=== PATIENT | male | born 1960 | race Caucasian/White ===

== ENCOUNTER 2016-06-13 09:56 | Inpatient (IN) | payer MEDICARE, OTHER ==
[~2016-06-13 09:56] MED LIST: AMLO10 PO; CLIN150 PO; DEPA500T PO; ENAL20TA PO; FIBE625T PO; LACT10SO PO; LEXA20TA PO; LIPI20TA PO; LITH300C2 PO; MELA3TAB PO; METF1000 PO; MOTR200T4 PO; NOVO7030P2 SQ; NOVOLOGSS SQ; OMEG100037 PO; OMEP20TA PO
[2016-06-13 10:00] VITALS: BP 106/66; PULSE 75; RESP 18; TEMP 98.5; O2SAT 96
[2016-06-13] MEDS ORDERED: LORazepam 2 MG/ML VIAL IM PRN ×2 (10:30→11:00)
[2016-06-13] MEDS ORDERED: ALUMINUM/MAGNESIUM/SIMETH 30 ML CUP PO PRN ×2 (10:30→11:00)
[2016-06-13] MEDS ORDERED: diphenhydrAMINE HCL 50 MG/ML VIAL - HS PRN IM (10:30)
[2016-06-13] MEDS ORDERED: MAGNESIUM HYDROXIDE SUSP 30 ML CUP PO PRN ×2 (10:30→11:00)
[2016-06-13] MEDS ORDERED: CALCIUM POLYCARBOPHIL 625 MG TAB PO PRN (11:00)
[2016-06-13] MEDS: LITHIUM CARBONATE 300 MG CAP PO SCH (11:00)
[2016-06-13] MEDS ORDERED: LORazepam 1 MG TAB PO PRN (11:00)
[2016-06-13] MEDS ORDERED: ACETAMINOPHEN 325 MG TAB PO PRN (11:00)
[2016-06-13] MEDS: ENALAPRIL MALEATE 10 MG TAB PO SCH (11:00)
[2016-06-13] MEDS ORDERED: hydrOXYzine HCL 50 MG TAB PO PRN (11:00)
[2016-06-13] MEDS: metFORMIN HCL 500 MG TAB PO SCH ×2 (11:00→21:00)
[2016-06-13] MEDS ORDERED: diphenhydrAMINE HCL 50 MG CAP PO PRN (11:00)
[2016-06-13] MEDS: ESCITALOPRAM OXALATE 20 MG TAB PO SCH (11:00)
[2016-06-13] MEDS ORDERED: IBUPROFEN 200 MG TAB PO PRN (11:00)
[2016-06-13] MEDS: CLINDAMYCIN 150 MG CAP PO SCH ×2 (12:00→17:58)
[2016-06-13] MEDS ORDERED: DEXTROSE 50% IN WATER 50 ML VIAL(D50) IV PUSH PRN (13:45)
[2016-06-13] MEDS ORDERED: GLUCAGON 1 MG/ML VIAL OTHER PRN (13:45)
[2016-06-13] MEDS ORDERED: cloNIDine HCL 0.1 MG TAB PO PRN (13:45)
--- NOTE | 2016-06-13 13:53 | PD.CONS ---
[facility] By [facility]ry team Reason for Consult Medical management Primary Care Physician Unknown Diagnoses: History of Present Illness Patient is a 55-year-old male with primary medical history of anxiety, depression, bipolar disorder, schizoaffective disorder, HTN and DM was recently discharged yesterday 06/13/16 to a longterm/[facility] long-term living facility . He got aggressive with the staff, he was [place] acted and sent to the ED. In the ED, states that he wants to go to [place] to see his and kids. Apparently patient has not been nor has kids. He is now admitted to inpatient psychiatric unit for further evaluation. Consulted for medical management. Patient seen. Sedated. Arousable to tactile stimuli but falls back to sleep. Patient was given ativan, haldol, benadryl in the ED due to agitation. Appears comfortable. Patient has multiple readmissions from agitation and aggressive behavior, 05/21- 05/25, 05/29-06/12. Review of Systems ROS Limitations: Altered Mental Status, Hearing Impaired Past Family Social History Allergies: Coded Allergies: Penicillin (Verified Allergy, Severe, unknown, 06/12/16) [place] (Verified Allergy, Severe, unk, 06/12/16) Past Medical History Anxiety Depression Bipolar disorder Schizoaffective disorder HTN DM Past Surgical History None Reported Medications Lipitor (Atorvastatin Calcium) 20 Mg Tab 20 Mg PO HS 15 Days [place] Carbonate 300 Mg Cap 300 Mg PO DAILY 15 Days Lexapro (Escitalopram Oxalate) 20 Mg Tab 20 Mg PO DAILY Depakote DR (Divalproex Sodium) 500 Mg Tabdr 1,500 Mg PO HS 15 Days Norvasc (Amlodipine Besylate) 10 Mg Tab 10 Mg PO DAILY Motrin Ib (Ibuprofen) 200 Mg Tab 600 Mg PO Q8HR PRN 5 Days Metformin (Metformin HCl) 1,000 Mg Tab 1,000 Mg PO BID With meals Melatonin 3 Mg Tab 6 Mg PO HS 30 Days Lactulose Liq (Lactulose) 10 Gm/15 Ml Soln 15 Ml PO BID 30 Days Fish Oil 1000 mg ([place]-3 Fatty Acids) 1 Cap Cap 2,000 Mg PO DAILY 30 Days Fibercon (Calcium Polycarbophil) 625 Mg Tab 625 Mg PO DAILY PRN 30 Days Enalapril (Enalapril Maleate) 20 Mg Tab 20 Mg PO DAILY 30 Days Novolog Inj (Insulin Aspart) 100 Unit/Ml Inj 1 Injection SQ DIRECTED 30 Days Three times daily SQ sliding scale before meals. no need to HS dosing. Novolin 70-30 Inj (Insulin Human Isoph/Insulin Regular) 1,000 Unit/10 Ml Vial 13 Units SQ DAILY@17 30 Days Novolin 70-30 Inj (Insulin Human Isoph/Insulin Regular) 1,000 Unit/10 Ml Vial 14 Units SQ DAILY@08 30 Days Omeprazole 20 Mg Tab 20 Mg PO DAILY Cleocin (Clindamycin HCl) 150 Mg Cap 300 Mg PO Q6H 10 Days Active Ordered Medications Current Medications Medications (Trade) Dose Ordered Sig/[place] Route Start Time Stop Time Status Last Admin (Ativan) 1 mg Q6H PRN PO 06/13/16 10:30 (Ativan Inj) 1 mg Q6H PRN IM 06/13/16 10:30 (Atarax) 50 mg Q6H PRN PO 06/13/16 10:30 (Benadryl) 50 mg HS PRN PO 06/13/16 10:30 (Benadryl Inj) 50 mg HS PRN IM 06/13/16 10:30 (Tylenol) 650 mg Q4H PRN PO 06/13/16 10:30 (Milk Of Magnesia Liq) 30 ml DAILY PRN PO 06/13/16 10:30 (Mag-Al Plus Susp Liq) 30 ml Q6H PRN PO 06/13/16 10:30 (Ativan) 1 mg Q6H PRN PO 06/13/16 11:00 (Ativan Inj) 1 mg Q6H PRN IM 06/13/16 11:00 (Benadryl) 50 mg HS PRN PO 06/13/16 11:00 (Tylenol) 650 mg Q4H PRN PO 06/13/16 11:00 (Milk Of Magnesia Liq) 30 ml DAILY PRN PO 06/13/16 11:00 (Mag-Al Plus Susp Liq) 30 ml Q6H PRN PO 06/13/16 11:00 (Atarax) 50 mg Q6H PRN PO 06/13/16 11:00 (Norvasc) 10 mg DAILY PO 06/13/16 11:00 (Lipitor) 20 mg HS PO 06/13/16 21:00 (Fiber Con) 625 mg DAILY PRN PO 06/13/16 11:00 (Cleocin) 300 mg Q6HR PO 06/13/16 12:00 (Depakote Dr) 1,500 mg HS PO 06/13/16 21:00 (Vasotec) 20 mg DAILY PO 06/13/16 11:00 (Lexapro) 20 mg DAILY PO 06/13/16 11:00 (NovoLIN 70/30 INJ) 13 units DAILY@17 SQ 06/13/16 17:00 (NovoLIN 70/30 INJ) 14 units DAILY@08 SQ 06/14/16 08:00 (Lactulose Liq) 15 ml BID PO 06/13/16 21:00 ([place] Carbonate) 300 mg DAILY PO 06/13/16 11:00 (Glucophage) 1,000 mg BID PO 06/13/16 11:00 (Protonix) 20 mg DAILY PO 06/14/16 09:00 (Melatonin) 5 mg HS PO 06/13/16 21:00 (Motrin) 600 mg Q8HR PRN PO 06/13/16 12:41 Family History No h/o DM or CAD Social History Negative for alcohol, tobacco or drugs. Physical Exam Vital Signs Vital Signs Date Time Temp Pulse Resp B/P Pulse Ox O2 Delivery O2 Flow Rate FiO2 06/13/16 10:00 98.5 75 18 106/66 96 Physical Exam GENERAL: This is a well-nourished, well-developed patient, sedated. SKIN: No rashes, ecchymoses or lesions. Cool and dry. HEAD: Atraumatic. Normocephalic. EYES: Pupils equal round and reactive. ENT: Nose without bleeding. Uvula midline. Airway patent. NECK: Trachea midline. No JVD or lymphadenopathy. CARDIOVASCULAR: Regular rate and rhythm without murmurs, gallops, or rubs. RESPIRATORY: Clear to auscultation. Breath sounds equal bilaterally. No wheezes , rales, or rhonchi. GASTROINTESTINAL: Abdomen soft, non-tender, nondistended. Bowel sounds active 4. MUSCULOSKELETAL: Extremities without clubbing, cyanosis, or edema. No joint tenderness, effusion, or edema noted. No calf tenderness. Negative Homans sign bilaterally. NEUROLOGICAL: Sedated, lethargic. Patient is hearing impaired. Moves all extremities. Assessment and Plan Problem List: (1) Schizoaffective disorder, bipolar type ICD Code: F25.0 Status: Acute (2) DM (diabetes mellitus) ICD Code: E11.9 Status: Chronic (3) HTN (hypertension) ICD Code: I10 Status: Chronic (4) Aggressive behavior ICD Code: R45.89 Status: Acute (5) Schizoaffective disorder ICD Code: F25.9 Status: Acute Assessment and Plan Patient is 55-year-old male with a PMH of Anxiety, Depression, Bipolar Disorder , Schizoaffective Disorder, HTN and DM who was sent to Hospital from [facility] under [place] for aggressive behavior towards staff. Now admitted to inpatient psychiatry unit. Consulted for medical management. Schizoaffective Disorder/ Anxiety/ depression/ Bipolar Disorder/ aggressive behavior - managed by psychiatry team HTN - Continue home meds Enalapril and Norvasc. PRN clonidine - Monitor BP trend DM2 - Continue NovoLog Mix 70/30 14units am and 13units pm. Continue home metformin 1000 mg twice daily. - Continue diabetic diet. Sliding scale w/ Accu-Cheks. Dental pain - previous jaw x-ray with no acute findings. On clindamycin, to be completed 06/22/16. - Soft diet - Follow up with dentist as an outpatient. HLD - continue Lipitor. DVT prop ambulation Written by Aura Samayoa, acting as scribe for Dr. Brand on 06/13/16 at 14: 36. The documentation accurately reflects the work performed [id number] by me on 06/14/16 at 1436 Code Status Full code Discussed Condition With RN, and Aura Manrique Jun 13, 2016 13:53 Danny Brand MD Jun 14, 2016 08:30
[2016-06-13] MEDS: INSULIN ASPART SUPPLEMENTAL SCALE SQ SCH ×2 (16:00→21:00)
[2016-06-13] MEDS: INSULIN HUMAN NPH/R 70/30 1,000 UNITS/10 ML VIAL SQ SCH (18:14)
[2016-06-13 19:27] VITALS: BP 130/68; PULSE 69; RESP 20; TEMP 98.3; O2SAT 97
[2016-06-13] MEDS: LACTULOSE SYRUP 20 GM/30 ML CUP PO SCH (21:00)
[2016-06-13] MEDS: MELATONIN 5 MG TAB PO SCH (21:00)
[2016-06-13] MEDS: DIVALPROEX DR 500 MG TABEC PO SCH (21:00)
[2016-06-13] MEDS ORDERED: ATORVASTATIN 20 MG TAB PO SCH (21:00)
[2016-06-14] MEDS: CLINDAMYCIN 150 MG CAP PO SCH ×5 (05:49→23:50)
[2016-06-14] MEDS: INSULIN ASPART SUPPLEMENTAL SCALE SQ SCH ×4 (06:02→20:38)
[2016-06-14 06:46] LABS: AUTOMATED NEUTROPHIL # 6.2 TH/MM3 (1.8-7.7); BASOPHIL # 0.1 TH/MM3 (0-0.2); BASOPHIL % 0.9 % (0.0-2.0); EOSINOPHIL # 0.4 TH/MM3 (0-0.4); EOSINOPHIL % 4.3 % (0.0-4.0); HEMATOCRIT 36.2 % (39.0-51.0); HEMO FLAGS DIFF FINAL; LYMPH % 21.4 % (9.0-44.0); LYMPHOCYTE # 2.1 TH/MM3 (1.0-4.8); MEAN CELL VOLUME 82.1 FL (80.0-100.0); MEAN CORPUSCULAR HGB CONC 32.8 % (32.0-36.0); MONO % 11.1 % (0.0-8.0); NEUT % 62.3 % (16.0-70.0); PLATELET COUNT 194 TH/MM3 (150-450); RED CELL DISTRIBUTION WIDTH 14.2 % (11.6-17.2); WHITE BLOOD COUNT 9.9 TH/MM3 (4.0-11.0)
[2016-06-14 07:28] LABS: ANION GAP 10 MEQ/L (5-15); BICARBONATE 27.2 MEQ/L (21.0-32.0); BLOOD UREA NITROGEN 15 MG/DL (7-18); CHLORIDE 100 MEQ/L (98-107); CREATINE KINASE 1333 U/L (39-308); GLOMERULAR FILTRATION RATE 66 ML/MIN (>89); HDL CHOLESTEROL 36.9 MG/DL (40.0-60.0); LDL CHOLESTEROL 62 MG/DL (0-99); MAGNESIUM 2.1 MG/DL (1.5-2.5); POTASSIUM 3.8 MEQ/L (3.5-5.1); SODIUM (NA) 137 MEQ/L (136-145)
[2016-06-14 08:25] LABS: CKMB 5.5 NG/ML (0.5-3.6)
[2016-06-14] MEDS ORDERED: OMEGA PO SCH (09:00)
[2016-06-14] MEDS: metFORMIN HCL 500 MG TAB PO SCH ×2 (09:00→20:38)
[2016-06-14] MEDS ORDERED: FATTY ACIDS PO SCH (09:00)
[2016-06-14 09:02] LABS: HEMOGLOBIN A1a 1.1 %; HEMOGLOBIN A1b 2.5 %; HEMOGLOBIN Ao 80.6 %; HEMOGLOBIN LA1C 2.3 %; HEMOGLOBIN P3 4.2 %
[2016-06-14] MEDS: LITHIUM CARBONATE 300 MG CAP PO SCH (10:10)
[2016-06-14] MEDS: INSULIN HUMAN NPH/R 70/30 1,000 UNITS/10 ML VIAL SQ SCH ×2 (10:10→17:00)
[2016-06-14] MEDS: ESCITALOPRAM OXALATE 20 MG TAB PO SCH (10:10)
[2016-06-14] MEDS: LACTULOSE SYRUP 20 GM/30 ML CUP PO SCH ×2 (10:11→21:00)
[2016-06-14] MEDS: PANTOPRAZOLE SOD 20 MG DELAYED RELEASE TAB PO SCH (10:11)
[2016-06-14] MEDS: ENALAPRIL MALEATE 10 MG TAB PO SCH (10:11)
--- NOTE | 2016-06-14 13:54 | HHI.PR ---
Subjective Remarks Follow-up diabetes mellitus. Patient doesn't communicated with notes. He has no complaints denies pain. He has elevated CK patient received several intramuscular medications yesterday. Discussed with RN Objective Vitals Vital Signs Date Time Temp Pulse Resp B/P Pulse Ox O2 Delivery O2 Flow Rate FiO2 06/13/16 19:27 98.3 69 20 130/68 97 Result Diagram: 06/14/1660506/14/16605 Objective Remarks GENERAL: This is a well-nourished, well-developed patient SKIN: No rashes, ecchymoses or lesions. Cool and dry. HEAD: Atraumatic. Normocephalic. EYES: Pupils equal round and reactive. ENT: Nose without bleeding. Uvula midline. Airway patent. NECK: Trachea midline. No JVD or lymphadenopathy. CARDIOVASCULAR: Regular rate and rhythm without murmurs, gallops, or rubs. RESPIRATORY: Clear to auscultation. Breath sounds equal bilaterally. No wheezes , rales, or rhonchi. GASTROINTESTINAL: Abdomen soft, non-tender, nondistended. Bowel sounds active 4. MUSCULOSKELETAL: Extremities without clubbing, cyanosis, or edema. No joint tenderness, effusion, or edema noted. No calf tenderness. Negative Homans sign bilaterally. NEUROLOGICAL: Awake and alert. Patient is hearing impaired. Moves all extremities. Procedures Non- A/P Problem List: (1) Schizoaffective disorder, bipolar type ICD Code: F25.0 Status: Acute (2) DM (diabetes mellitus) ICD Code: E11.9 Status: Chronic (3) HTN (hypertension) ICD Code: I10 Status: Chronic (4) Aggressive behavior ICD Code: R45.89 Status: Acute (5) Schizoaffective disorder ICD Code: F25.9 Status: Acute Assessment and Plan Patient is 55-year-old male with a PMH of Anxiety, Depression, Bipolar Disorder , Schizoaffective Disorder, HTN and DM who was [facility] to [facility] under [place] Act for aggressive behavior towards staff. Now admitted to inpatient psychiatry unit. Consulted for medical management. Schizoaffective Disorder/ Anxiety/ depression/ Bipolar Disorder/ aggressive behavior - managed by psychiatry team HTN - Continue home meds Enalapril and Norvasc. PRN clonidine - Monitor BP trend DM2 - Continue NovoLog Mix 70/30 14units am and 13units pm. Continue home metformin 1000 mg twice daily. - Continue diabetic diet. Sliding scale w/ Accu-Cheks. Dental pain - previous jaw x-ray with no acute findings. On clindamycin, to be completed 06/22/16. - Soft diet - Follow up with dentist as an outpatient. Rhabdomyolysis. Patient was agitated yesterday and received several IM medications. No urinary complaints. Encourage oral hydration and avoid intramuscular medications. Repeat BMP and CK number morning. Hold Lipitor for now. HLD -was on Lipitor. DVT prop patient ambulatory Danny Brand MD Jun 14, 2016 13:54
--- NOTE | 2016-06-14 17:04 | HHI.PYPN ---
Subjective Remarks This is a second opinion for Dr. Núñez. Patient was seen and records reviewed but interview is limited via writing since no interpreters available. Patient is deaf. Patient has been behaving well in the hospital. Has not been agitated. Compliant with medications. He denies suicidal ideations thought or plan. He denies any hallucinations. Objective Alert: Yes [place]: Person, Place Mood: Calm Affect: Blunted Memory Intact: Comment (not tested) Hallucinations: Other (denies) Delusions: No Delusion Type: Other (denies) Suicidal: Ideation (denies) Homicidal: Ideation (denies) Insight/Judgement Poor Labs Test 06/14/16 06:06 White Blood Count 9.9 TH/MM3 Red Blood Count 4.40 MIL/MM3 Hemoglobin 11.9 GM/DL Hematocrit 36.2 % Mean Corpuscular Volume 82.1 FL Mean Corpuscular Hemoglobin 27.0 PG Mean Corpuscular Hemoglobin 32.8 % Concent Red Cell Distribution Width 14.2 % Platelet Count 194 TH/MM3 Mean Platelet Volume 8.3 FL Neutrophils (%) (Auto) 62.3 % Lymphocytes (%) (Auto) 21.4 % Monocytes (%) (Auto) 11.1 % Eosinophils (%) (Auto) 4.3 % Basophils (%) (Auto) 0.9 % Neutrophils # (Auto) 6.2 TH/MM3 Lymphocytes # (Auto) 2.1 TH/MM3 Monocytes # (Auto) 1.1 TH/MM3 Eosinophils # (Auto) 0.4 TH/MM3 Basophils # (Auto) 0.1 TH/MM3 CBC Comment DIFF FINAL Differential Comment Sodium Level 137 MEQ/L Potassium Level 3.8 MEQ/L Chloride Level 100 MEQ/L Carbon Dioxide Level 27.2 MEQ/L Anion Gap 10 MEQ/L Blood Urea Nitrogen 15 MG/DL Creatinine 1.15 MG/DL Estimat Glomerular Filtration 66 ML/MIN Rate Random Glucose 134 MG/DL Hemoglobin A1c 8.8 % Calcium Level 9.1 MG/DL Magnesium Level 2.1 MG/DL Total Creatine Kinase 1333 U/L Creatine Kinase MB 5.5 NG/ML Creatine Kinase MB % 0.4 % Triglycerides Level 130 MG/DL Cholesterol Level 125 MG/DL LDL Cholesterol 62 MG/DL HDL Cholesterol 36.9 MG/DL Cholesterol/HDL Ratio 3.38 RATIO Valproic Acid (Depakene) Level 11 MCG/ML [place] Level 0.2 MEQ/L Vitals/IOs Vital Signs Date Time Temp Pulse Resp B/P Pulse Ox O2 Delivery O2 Flow Rate FiO2 06/13/16 19:27 98.3 69 20 130/68 97 Assessment & Plan Problem List: (1) Schizoaffective disorder, bipolar type ICD Code: F25.0 Assessment & Plan I agree with the first opinion to continue petition. Criteria includes agitated behavior before admission. Justification for Cont. Inpt. Patient would decompensate in a less restrictive setting London Fontaine DO Jun 14, 2016 17:04
[2016-06-14 19:52] VITALS: BP 109/54; PULSE 71; RESP 18; TEMP 97; O2SAT 97
[2016-06-14] MEDS: DIVALPROEX DR 500 MG TABEC PO SCH (20:38)
[2016-06-14] MEDS: MELATONIN 5 MG TAB PO SCH (20:38)
[2016-06-14] MEDS: diphenhydrAMINE HCL 50 MG CAP - HS PRN PO (20:38)
[2016-06-15] MEDS: CLINDAMYCIN 150 MG CAP PO SCH ×5 (05:58→23:33)
[2016-06-15] MEDS: INSULIN ASPART SUPPLEMENTAL SCALE SQ SCH ×4 (05:58→20:42)
[2016-06-15 06:07] VITALS: BP 116/71; PULSE 66; RESP 18; TEMP 97.2; O2SAT 97
[2016-06-15 08:45] LABS: MAGNESIUM 2.1 MG/DL (1.5-2.5)
[2016-06-15] MEDS: ENALAPRIL MALEATE 10 MG TAB PO SCH (08:45)
[2016-06-15] MEDS: ESCITALOPRAM OXALATE 20 MG TAB PO SCH (08:45)
[2016-06-15] MEDS: LACTULOSE SYRUP 20 GM/30 ML CUP PO SCH ×2 (08:45→20:45)
[2016-06-15] MEDS: LITHIUM CARBONATE 300 MG CAP PO SCH (08:45)
[2016-06-15] MEDS: metFORMIN HCL 500 MG TAB PO SCH ×2 (08:45→20:42)
[2016-06-15] MEDS: PANTOPRAZOLE SOD 20 MG DELAYED RELEASE TAB PO SCH (08:45)
[2016-06-15 08:46] LABS: BICARBONATE 27.1 MEQ/L (21.0-32.0); POTASSIUM 4.3 MEQ/L (3.5-5.1)
[2016-06-15] MEDS: INSULIN HUMAN NPH/R 70/30 1,000 UNITS/10 ML VIAL SQ SCH ×2 (08:46→16:31)
[2016-06-15 10:08] LABS: CKMB 2.4 NG/ML (0.5-3.6)
--- NOTE | 2016-06-15 15:47 | HHI.PYPN ---
Subjective Remarks I am assuming care of this patient. Patient seen and examined with nursing staff with the help of computer-based design intern Gabriella #[id number]. Chart reviewed. It appears that Dr. Núñez dictated in H&P for this patient under visit number [id number]. Case discussed with nursing staff who reports patient has displayed no aggressive behavior on the inpatient unit. On my examination today, the patient is calm and pleasant. He relates to me through the per diem interpreter that he came into the hospital because he was having "a difficult time with staff and the police had to come" to the facility to which she had been transferred. He says he didn't like this facility very much as it was mostly "for older people." Patient denies any SI, HI or AVH. He denies any side effects from medications. Review of Systems ROS Limitations: Hearing Impaired, Speech Impaired Other No physical complaints today Objective Alert: Yes [place]: Person, Place Mood: Calm Affect: Blunted Memory Intact: Comment (not formally assessed) Hallucinations: Other (denies AVH) Delusions: No Delusion Type: Other (no caridad delusional material) Suicidal: Ideation (denies SI) Homicidal: Ideation (denies HI) Insight/Judgement Poor Remarks Thought process seems fairly linear. No speech but patient does converse easily with the benefit of a design intern. No abnormal motor movements noted. Labs Test 06/15/16 07:39 Sodium Level 139 MEQ/L Potassium Level 4.3 MEQ/L Chloride Level 105 MEQ/L Carbon Dioxide Level 27.1 MEQ/L Anion Gap 7 MEQ/L Blood Urea Nitrogen 12 MG/DL Creatinine 1.14 MG/DL Estimat Glomerular Filtration 66 ML/MIN Rate Random Glucose 133 MG/DL Calcium Level 8.9 MG/DL Magnesium Level 2.1 MG/DL Total Creatine Kinase 909 U/L Creatine Kinase MB 2.4 NG/ML Creatine Kinase MB % 0.3 % Labs reviewed. I note that CK is downtrending. Renal function remains stable. Depakote and lithium levels were low on presentation here. Vitals/IOs Vital Signs Date Time Temp Pulse Resp B/P Pulse Ox O2 Delivery O2 Flow Rate FiO2 06/15/16 06:07 97.2 66 18 116/71 97 Assessment & Plan Problem List: (1) Schizoaffective disorder, bipolar type ICD Code: F25.0 Assessment & Plan Continue current psychotropics as ordered. I will plan to check a Depakote and lithium level after the appropriate interval. Hospitalist merchandising consultant input noted and appreciated. A CK has been ordered for tomorrow morning. Continue other medications and care as ordered. Justification for Cont. Inpt. Concerns for impairments in safety and social functioning. Risk for decompensation. Discharge Planning To be determined. Patient may require a new placement. Chetan Cuellar MD Jun 15, 2016 15:47
[2016-06-15] MEDS: IBUPROFEN 600 MG TAB PO PRN (18:04)
[2016-06-15] MEDS: hydrOXYzine HCL 50 MG TAB PO PRN (18:04)
[2016-06-15 19:20] VITALS: BP 131/66; PULSE 82; RESP 18; TEMP 99; O2SAT 98
[2016-06-15] MEDS: DIVALPROEX DR 500 MG TABEC PO SCH (20:42)
[2016-06-15] MEDS: diphenhydrAMINE HCL 50 MG CAP - HS PRN PO (20:42)
[2016-06-15] MEDS: MELATONIN 5 MG TAB PO SCH (20:42)
[2016-06-16] MEDS: LORazepam 1 MG TAB PO PRN (00:40)
[2016-06-16 05:36] VITALS: BP 129/78; PULSE 67; RESP 18; TEMP 97.9; O2SAT 94
[2016-06-16] MEDS: INSULIN ASPART SUPPLEMENTAL SCALE SQ SCH ×4 (05:49→20:30)
[2016-06-16] MEDS: CLINDAMYCIN 150 MG CAP PO SCH ×4 (05:49→23:52)
[2016-06-16 07:52] LABS: CKMB 3.5 NG/ML (0.5-3.6)
[2016-06-16] MEDS: INSULIN HUMAN NPH/R 70/30 1,000 UNITS/10 ML VIAL SQ SCH ×2 (08:00→16:36)
[2016-06-16] MEDS: ESCITALOPRAM OXALATE 20 MG TAB PO SCH (08:31)
[2016-06-16] MEDS: LITHIUM CARBONATE 300 MG CAP PO SCH (08:31)
[2016-06-16] MEDS: LACTULOSE SYRUP 20 GM/30 ML CUP PO SCH ×2 (08:31→21:00)
[2016-06-16] MEDS: ENALAPRIL MALEATE 10 MG TAB PO SCH (08:31)
[2016-06-16] MEDS: metFORMIN HCL 500 MG TAB PO SCH ×2 (08:31→22:02)
[2016-06-16] MEDS: PANTOPRAZOLE SOD 20 MG DELAYED RELEASE TAB PO SCH (08:31)
--- NOTE | 2016-06-16 11:15 | HHI.PYPN ---
Subjective Remarks Patient seen and examined with counselor and case discussed in treatment team. Chart reviewed. Case discussed with nursing staff who reports patient has been in good behavioral control on the inpatient psychiatric unit. Patient seen and examined with the assistance of fashion designer, Rose. Patient is calm and pleasant on exam. He denies side effects from medications. He denies any SI or HI. He says that his goal is to go to [place] where he believes he has a home. He believes that he is there and may even have children , but on review of the chart, it appears that none of this is in fact the case. Otherwise, no issues noted. Review of Systems ROS Limitations: Poor Historian Other No physical complaints today Objective Alert: Yes [place]: Person, Place Mood: Calm Affect: Blunted Memory Intact: Comment (not formally assessed) Hallucinations: Other (none) Delusions: Yes Delusion Type: Other (See above) Suicidal: Ideation (again denies SI) Homicidal: Ideation (again denies HI) Insight/Judgement Poor Remarks No motoric abnormalities noted Labs Test 06/16/16 06:37 Total Creatine Kinase 834 U/L Creatine Kinase MB 3.5 NG/ML Creatine Kinase MB % 0.4 % Labs reviewed. CK is downtrending. Vitals/IOs Vital Signs Date Time Temp Pulse Resp B/P Pulse Ox O2 Delivery O2 Flow Rate FiO2 06/16/16 05:36 97.9 67 18 129/78 94 Assessment & Plan Problem List: (1) Schizoaffective disorder, bipolar type ICD Code: F25.0 Assessment & Plan Continue current psychotropics as ordered. Plan to check a Depakote and ammonia level on , pre-dose. Additionally plan to check a lithium level and BMP morning. We can also repeat CK at that time. Continue other medications and care as ordered. Justification for Cont. Inpt. Risk for decompensation in lower level of care. Discharge Planning Placement. Case d/w counselor. Chetan Cuellar MD Jun 16, 2016 11:15
[2016-06-16] MEDS: ARTIFICIAL TEARS OPTH SOLN 15 ML BTL EACH EYE PRN ×2 (11:46→19:52)
[2016-06-16] MEDS: IBUPROFEN 600 MG TAB PO PRN (17:52)
[2016-06-16 18:26] VITALS: BP 117/66; PULSE 68; RESP 16; TEMP 98.9; O2SAT 96
[2016-06-16] MEDS: ACETAMINOPHEN 325 MG TAB PO PRN (19:52)
[2016-06-16] MEDS: DIVALPROEX DR 500 MG TABEC PO SCH (21:00)
[2016-06-16] MEDS: MELATONIN 5 MG TAB PO SCH (22:02)
[2016-06-17 05:44] VITALS: BP 98/58; PULSE 67; RESP 16; TEMP 98
[2016-06-17] MEDS: CLINDAMYCIN 150 MG CAP PO SCH ×3 (06:28→18:00)
[2016-06-17] MEDS: INSULIN ASPART SUPPLEMENTAL SCALE SQ SCH ×4 (06:38→20:35)
[2016-06-17] MEDS: INSULIN HUMAN NPH/R 70/30 1,000 UNITS/10 ML VIAL SQ SCH ×2 (08:00→17:00)
[2016-06-17] MEDS: LACTULOSE SYRUP 20 GM/30 ML CUP PO SCH ×2 (09:00→20:35)
[2016-06-17] MEDS: ESCITALOPRAM OXALATE 20 MG TAB PO SCH (09:06)
[2016-06-17] MEDS: PANTOPRAZOLE SOD 20 MG DELAYED RELEASE TAB PO SCH (09:06)
[2016-06-17] MEDS: LITHIUM CARBONATE 300 MG CAP PO SCH (09:07)
[2016-06-17] MEDS: ENALAPRIL MALEATE 10 MG TAB PO SCH (09:07)
[2016-06-17] MEDS: metFORMIN HCL 500 MG TAB PO SCH ×2 (09:07→20:30)
[2016-06-17] MEDS: ACETAMINOPHEN 325 MG TAB PO PRN (12:40)
--- NOTE | 2016-06-17 14:30 | HHI.PYPN ---
Subjective Remarks Patient seen and examined with the help of computer-based fashion designer #[id number]. Chart reviewed. Case discussed with nursing staff who reports patient has been no behavioral problem. Patient has been transferred without incident to the lower acuity 2600 unit. On my examination today, the patient continues to insist that he needs to go out to [place] because he has a house and and children there. When I asked how he knows that they are there, he says that he at one point uncovered some documents that alluded to their presence. He then says that [place] is somehow "locked, but if I can enter [place], it will be open, and it'll be safer." He further says "children are afraid of [place]." The meaning of these statements are obscure. He denies side effects from medications. No other issues noted. I did offer to have the patient sign into the hospital voluntarily, but he declines after discussion of the risks and benefits saying that he hopes that he will be released by the court from the hospital tomorrow. Review of Systems ROS Limitations: Poor Historian Other No physical complaints today Objective Alert: Yes [place]: Person, Place, Date (approximate) Mood: Calm Affect: Blunted Memory Intact: Comment (not formally assessed) Hallucinations: Other (no AVH) Delusions: Yes Delusion Type: Other (again, see above) Suicidal: Ideation (denies SI) Homicidal: Ideation (denies HI) Insight/Judgement Poor Remarks No abnormal motor movements noted Labs Labs reviewed. No new labs. Vitals/IOs Vital Signs Date Time Temp Pulse Resp B/P Pulse Ox O2 Delivery O2 Flow Rate FiO2 06/17/16 05:44 98.0 67 16 98/58 06/16/16 18:26 96 Assessment & Plan Problem List: (1) Schizoaffective disorder, bipolar type ICD Code: F25.0 Assessment & Plan Add low dose of antipsychotic to manage apparent delusional material. Start Risperdal 0.25mg BID with plans to titrate. Continue other medications and care as ordered. Justification for Cont. Inpt. Risk for decompensation in less restrictive level of care. Discharge Planning Pending [place] [address] tomorrow. Request HC Surrog/Guard Advoc?: Yes Chetan Cuellar MD Jun 17, 2016 14:30
--- NOTE | 2016-06-17 14:34 | HHI.PR ---
Subjective Remarks Follow-up diabetes mellitus. Seen in the room during lunch. Patient able to communicate with written notes. He has no complaints denies pain. CK improving. Blood sugar improving. Objective Vitals Vital Signs Date Time Temp Pulse Resp B/P Pulse Ox O2 Delivery O2 Flow Rate FiO2 06/17/16 05:44 98.0 67 16 98/58 06/16/16 18:26 98.9 68 16 117/66 96 Result Diagram: 06/14/16 0606 06/15/16 0739 Objective Remarks GENERAL: This is a well-nourished, well-developed patient, in no acute distress SKIN: No rashes, ecchymoses or lesions. Cool and dry. HEAD: Atraumatic. Normocephalic. EYES: Pupils equal round and reactive. ENT: Nose without bleeding. Uvula midline. Airway patent. NECK: Trachea midline. No JVD or lymphadenopathy. CARDIOVASCULAR: Regular rate and rhythm without murmurs, gallops, or rubs. RESPIRATORY: Clear to auscultation. Breath sounds equal bilaterally. No wheezes , rales, or rhonchi. GASTROINTESTINAL: Abdomen soft, non-tender, nondistended. Bowel sounds active 4. MUSCULOSKELETAL: Extremities without clubbing, cyanosis, or edema. No joint tenderness, effusion, or edema noted. No calf tenderness. Negative Homans sign bilaterally. NEUROLOGICAL: Awake and alert. Patient is hearing impaired. Moves all extremities. Procedures Non- A/P Problem List: (1) Schizoaffective disorder, bipolar type ICD Code: F25.0 Status: Acute (2) DM (diabetes mellitus) ICD Code: E11.9 Status: Chronic (3) HTN (hypertension) ICD Code: I10 Status: Chronic (4) Aggressive behavior ICD Code: R45.89 Status: Acute (5) Schizoaffective disorder ICD Code: F25.9 Status: Acute Assessment and Plan Patient is 55-year-old male with a PMH of Anxiety, Depression, Bipolar Disorder , Schizoaffective Disorder, HTN and DM who was sent to Hospital from [facility] under [place] Act for aggressive behavior towards staff. Now admitted to inpatient psychiatry unit. Consulted for medical management. Schizoaffective Disorder/ Anxiety/ depression/ Bipolar Disorder/ aggressive behavior - managed by psychiatry team HTN - Continue home meds Enalapril and Norvasc. PRN clonidine - Monitor BP trend DM2 - Continue NovoLog Mix 70/30 14units am and 13units pm. Continue home metformin 1000 mg twice daily. - Continue diabetic diet. Sliding scale w/ Accu-Cheks. Dental pain - previous jaw x-ray with no acute findings. On clindamycin, to be completed 06/22/16. - Soft diet - Follow up with dentist as an outpatient. Rhabdomyolysis - CK improving No urinary complaints. Encourage oral hydration and avoid intramuscular medications. Hold Lipitor for now. HLD -was on Lipitor. DVT prop patient ambulatory discussed with patient and RN Patient appears medically stable will sign off. The patient's condition changes or further assistance is needed please reconsult. Written by Lia Abraham, acting as scribe for Dr. Price on 06/17/16 at 14:32. Lia Abraham Jun 17, 2016 14:34
[2016-06-17 19:46] VITALS: BP 112/64; PULSE 67; RESP 18; TEMP 98.5
[2016-06-17] MEDS: MELATONIN 5 MG TAB PO SCH (20:30)
[2016-06-17] MEDS: risperiDONE 0.25 MG TAB PO SCH (20:30)
[2016-06-17] MEDS: DIVALPROEX DR 500 MG TABEC PO SCH (20:30)
[2016-06-17] MEDS: IBUPROFEN 600 MG TAB PO PRN (20:42)
[2016-06-17] MEDS: LORazepam 1 MG TAB PO PRN (20:43)
[2016-06-18 06:14] VITALS: BP 106/57; PULSE 86; RESP 16; TEMP 97.3
[2016-06-18] MEDS: CLINDAMYCIN 150 MG CAP PO SCH ×4 (06:20→17:05)
[2016-06-18] MEDS: IBUPROFEN 600 MG TAB PO PRN ×3 (06:26→23:20)
[2016-06-18] MEDS: INSULIN ASPART SUPPLEMENTAL SCALE SQ SCH ×4 (07:00→20:38)
[2016-06-18 07:45] LABS: BICARBONATE 29.7 MEQ/L (21.0-32.0); POTASSIUM 4.6 MEQ/L (3.5-5.1)
[2016-06-18] MEDS: INSULIN HUMAN NPH/R 70/30 1,000 UNITS/10 ML VIAL SQ SCH ×2 (08:00→17:00)
[2016-06-18] MEDS: PANTOPRAZOLE SOD 20 MG DELAYED RELEASE TAB PO SCH (08:05)
[2016-06-18] MEDS: ESCITALOPRAM OXALATE 20 MG TAB PO SCH (08:07)
[2016-06-18] MEDS: metFORMIN HCL 500 MG TAB PO SCH ×2 (08:08→20:35)
[2016-06-18] MEDS: LITHIUM CARBONATE 300 MG CAP PO SCH (08:08)
[2016-06-18] MEDS: LACTULOSE SYRUP 20 GM/30 ML CUP PO SCH ×2 (09:00→20:38)
[2016-06-18] MEDS: ENALAPRIL MALEATE 10 MG TAB PO SCH (09:00)
[2016-06-18] MEDS: risperiDONE 0.25 MG TAB PO SCH ×2 (09:00→20:35)
--- NOTE | 2016-06-18 09:24 | HHI.PYPN ---
Subjective Remarks Patient seen and case discussed with nursing staff. Per nursing staff, no behavioral issues overnight. Chart reviewed. For me today, patient continues to articulate his beliefs about having a and children in [place]. He says that if he were released from the hospital he would ride the bus to get there. During the Cates act cord, the patient was fairly disrespectful, interrupting the can closing machine operator several times. No evident side effects from medications. Review of Systems ROS Limitations: Poor Historian Other No reported physical complaints today Objective Alert: Yes [place]: Person, Place Mood: Calm Affect: Blunted Memory Intact: Comment (not formally assessed) Hallucinations: Other (None) Delusions: Yes Delusion Type: Other (As above) Suicidal: Ideation (No SI) Homicidal: Ideation (No HI) Insight/Judgement Poor Remarks No abnormal motor movements noted. Labs Test 06/18/16 06:02 Sodium Level 139 MEQ/L Potassium Level 4.6 MEQ/L Chloride Level 103 MEQ/L Carbon Dioxide Level 29.7 MEQ/L Anion Gap 6 MEQ/L Blood Urea Nitrogen 17 MG/DL Creatinine 1.20 MG/DL Estimat Glomerular Filtration 62 ML/MIN Rate Random Glucose 139 MG/DL Calcium Level 9.5 MG/DL Total Creatine Kinase 212 U/L Valproic Acid (Depakene) Level 61 MCG/ML [place] Level 0.3 MEQ/L Labs reviewed. Renal function stable. Depakote level within the therapeutic range. [place] subtherapeutic. Vitals/IOs Vital Signs Date Time Temp Pulse Resp B/P Pulse Ox O2 Delivery O2 Flow Rate FiO2 06/18/16 06:14 97.3 86 16 106/57 06/16/16 18:26 96 Assessment & Plan Problem List: (1) Schizoaffective disorder, bipolar type ICD Code: F25.0 Assessment & Plan I see that patient's sister is concerned about a possible dementia diagnosis. I do not see much of a dementia picture at play in the patient's case. He seems to have episodes of behavioral outburst when he is placed in facilities that he doesn't like, with the overarching goal of going to [place] as he believes that he has family there. Continue current psychotropics as ordered. Continue other medications and care as ordered. Patient's case was presented to the [facility] and was placed in continuance for 4 weeks. Justification for Cont. Inpt. Risk for decompensation in lower level of care. Discharge Planning Placement Request HC Surrog/Guard Advoc?: Yes Chetan Cuellar MD Jun 18, 2016 09:23
[2016-06-18] MEDS: MELATONIN 5 MG TAB PO SCH (20:35)
[2016-06-18] MEDS: DIVALPROEX DR 500 MG TABEC PO SCH (20:35)
[2016-06-19 05:25] VITALS: BP 107/63; PULSE 62; RESP 18; TEMP 98.1; O2SAT 94
[2016-06-19] MEDS: CLINDAMYCIN 150 MG CAP PO SCH ×5 (05:54→17:34)
[2016-06-19] MEDS: INSULIN ASPART SUPPLEMENTAL SCALE SQ SCH ×4 (07:52→21:00)
[2016-06-19] MEDS: INSULIN HUMAN NPH/R 70/30 1,000 UNITS/10 ML VIAL SQ SCH ×2 (08:00→17:00)
[2016-06-19] MEDS: risperiDONE 0.25 MG TAB PO SCH (09:00)
[2016-06-19] MEDS: LACTULOSE SYRUP 20 GM/30 ML CUP PO SCH (09:00)
[2016-06-19] MEDS: ESCITALOPRAM OXALATE 20 MG TAB PO SCH (09:20)
[2016-06-19] MEDS: metFORMIN HCL 500 MG TAB PO SCH ×2 (09:20→21:31)
[2016-06-19] MEDS: LITHIUM CARBONATE 300 MG CAP PO SCH (09:20)
[2016-06-19] MEDS: PANTOPRAZOLE SOD 20 MG DELAYED RELEASE TAB PO SCH (09:20)
[2016-06-19] MEDS: ENALAPRIL MALEATE 10 MG TAB PO SCH (09:21)
[2016-06-19] MEDS: ACETAMINOPHEN 325 MG TAB PO PRN (12:17)
--- NOTE | 2016-06-19 18:25 | HHI.PYPN ---
Subjective Remarks Pt seen and examined with RN. Chart reviewed. Case discussed with RN; pt has been no behavioral problem. On my examination today, patient is in no distress. He relates that he wishes to have a visit from his [id number] Domenic. He alludes to buying a [employer] ticket, presumably to go to [place]. No evident side effects from medications. Patient's sister and HCS, Ms. Neal called to the unit. I called her back after rounding on the patient and had a 30min discussion with her about patient' s case over the phone. She is a little confrontational and rigid in our interaction. She spends some time badmouthing patient's previous providers at other locales, and I do have to redirect her to the matter at hand. She says repeatedly that patient's behavior, including the delusions about family elsewhere, is of recent vintage, having allegedly only started in May of this year. However, consulting the medical record, I note the patient had delusions of a and children in [place] under Dr. Salvador in 2006 and was sent to the [facility]. He also had delusions of family in [place] under Dr. Fernandez in 2005 and was sent to the [facility] then as well. I note, as an aside, that the patient had some improvement from Risperdal in the 2006 admission. When I broach the subject of state hospitalization if no other placement can be found, imperiously says patient "will not be going to the [facility]." is concerned that there must be a medical or neurological etiology for patient's behavior, she seems less inclined to believe there is a psychiatric explanation, i.e. decompensated psychosis or behavioral tantrums. She does hope that I can give the patient a dementia diagnosis because she believes this will open up more placement options than if he has a psychotic disorder diagnosis. I try to work with to help elucidate her concerns into actionable items, with only partial success. Overall, an unfortunately fairly unsatisfactory discussion. Review of Systems ROS Limitations: Poor Historian Other C/o some tooth pain to RN. I note hospitalist has him on Clinda. I'll add some Orajel PRN. No physical complaints for me. Objective Alert: Yes [place]: Person, Place Mood: Calm Affect: Blunted Memory Intact: Comment (No obvious deficits) Hallucinations: Other (No AVH) Delusions: Yes Delusion Type: Other (Delusional material of family in [place] as before) Suicidal: Ideation (No SI voiced) Homicidal: Ideation (No HI voiced) Insight/Judgement Poor Remarks No motoric abnormalities noted. Steady gait and station. Labs Test 06/18/16 18:16 Ammonia 34 MCMOL/L Labs reviewed. Hyperammonemia somewhat worse, but patient has been refusing his lactulose. Vitals/IOs Vital Signs Date Time Temp Pulse Resp B/P Pulse Ox O2 Delivery O2 Flow Rate FiO2 06/19/16 05:25 98.1 62 18 107/63 94 Assessment & Plan Problem List: (1) Schizoaffective disorder, bipolar type ICD Code: F25.0 Assessment & Plan Mild hyperammonemia likely due to non-adherence with lactulose. To the extent that this hyperammonemia is Depakote related, it might respond to Carnitor. I will try adding Carnitor at low dose and recheck ammonia after the weekend. Hospitalists have signed off, and their assistance is appreciated. I will request a neurological consultation given sister's concerns. Risperdal on hold due to lack of consent. Continue other medications and care as ordered. Justification for Cont. Inpt. Risk for decompensation. Discharge Planning Placement. Request HC Surrog/Guard Advoc?: Yes Chetan Cuellar MD Jun 19, 2016 18:25
[2016-06-19] MEDS: MELATONIN 5 MG TAB PO SCH (21:31)
[2016-06-19] MEDS: DIVALPROEX DR 500 MG TABEC PO SCH (21:31)
[2016-06-19] MEDS: IBUPROFEN 600 MG TAB PO PRN (21:37)
[2016-06-20] MEDS: CLINDAMYCIN 150 MG CAP PO SCH ×5 (05:57→23:16)
[2016-06-20 06:22] VITALS: BP 112/59; PULSE 61; RESP 18; TEMP 98.1; O2SAT 94
[2016-06-20] MEDS: INSULIN ASPART SUPPLEMENTAL SCALE SQ SCH ×4 (07:00→21:55)
[2016-06-20] MEDS: INSULIN HUMAN NPH/R 70/30 1,000 UNITS/10 ML VIAL SQ SCH ×2 (08:21→17:24)
[2016-06-20] MEDS: ENALAPRIL MALEATE 10 MG TAB PO SCH (09:00)
[2016-06-20] MEDS: ESCITALOPRAM OXALATE 20 MG TAB PO SCH (09:40)
[2016-06-20] MEDS: BACITRACIN TOP OINT 15 GM TUBE TOP SCH (09:40)
[2016-06-20] MEDS: levOCARNitine 10% ORAL SOLN 118 ML BTL PO SCH ×3 (09:40→18:16)
[2016-06-20] MEDS: metFORMIN HCL 500 MG TAB PO SCH ×2 (09:40→21:53)
[2016-06-20] MEDS: LITHIUM CARBONATE 300 MG CAP PO SCH (09:40)
[2016-06-20] MEDS: PANTOPRAZOLE SOD 20 MG DELAYED RELEASE TAB PO SCH (09:40)
[2016-06-20] MEDS: IBUPROFEN 600 MG TAB PO PRN ×2 (09:51→18:42)
--- NOTE | 2016-06-20 12:55 | HHI.PYPN ---
Subjective Remarks Patient seen and examined with nursing staff. Chart reviewed. Case discussed with nursing staff. Prior to my departure from the unit yesterday but after evaluating him, the patient had a tantrum because he didn't get his cte teacher salad. He calmed down once he was given one. Interview today conducted with tech conversant in sign language. Patient is focused on not getting the salad. Apparently he is no longer getting salads because of the soft diet. Otherwise, no apparent issues. Review of Systems Other No reported somatic complaints. Objective Alert: Yes [place]: Person (at least) Mood: Calm Affect: Blunted (remains blunted) Memory Intact: Comment (Not formally assessed today) Hallucinations: Other (No AVH) Delusions: Yes Delusion Type: Other (No caridad delusional material, but I do suspect his delusions of family remains) Suicidal: Ideation (No SI voiced) Homicidal: Ideation (No HI voiced) Insight/Judgement Poor Remarks No abnormal motor movements noted. Labs Labs reviewed. Vitals/IOs Vital Signs Date Time Temp Pulse Resp B/P Pulse Ox O2 Delivery O2 Flow Rate FiO2 06/20/16 06:22 98.1 61 18 112/59 94 Assessment & Plan Problem List: (1) Schizoaffective disorder, bipolar type ICD Code: F25.0 Assessment & Plan Continue current medications as ordered. Neuro consult pending. Continue other care as ordered. Justification for Cont. Inpt. Risk for decompensation. Discharge Planning Placement. Request HC Surrog/Guard Advoc?: Yes Chetan Cuellar MD Jun 20, 2016 12:55
[2016-06-20 18:00] VITALS: BP 126/68; PULSE 70; RESP 18; TEMP 97.4; O2SAT 95
[2016-06-20] MEDS: MELATONIN 5 MG TAB PO SCH (21:53)
[2016-06-20] MEDS: DIVALPROEX DR 500 MG TABEC PO SCH (21:53)
[2016-06-20] MEDS: BENZOCAINE 7.5% ORAL GEL 9.4 GM TUBE OROPHARYNG PRN (22:01)
--- NOTE | 2016-06-20 22:02 | MB ---
cc: ALMITA YING MD DATE OF CONSULTATION 06/20/16 REASON FOR CONSULTATION A patient with history of psychiatric illness admitted with behavioral outbursts when he was transferred to the facility and the sister is concerned about possible neurologic etiology. HISTORY OF PRESENT ILLNESS A 55-year-old male with a past medical history of anxiety, depression, bipolar, schizoaffective disorder, hypertension, diabetes who was recently discharged to a residential assisted living facility long-term living facility. It was reported that he got aggressive with the staff and he was Cates Acted and sent to the emergency room. He was admitted to the inpatient psychiatry unit for further evaluation. The patient's baseline he is deaf and he uses sign language for communication. At the encounter an protective signal installer was present. REVIEW OF SYSTEMS A 12-point review of systems is negative except for what is stated in the HPI. PAST MEDICAL HISTORY 1. Anxiety depression, 2. Bipolar 3. Schizoaffective 4. Hypertension, 5. Diabetes PAST SURGICAL HISTORY None ALLERGIES PENICILLIN STRAWBER[facility]ES FAMILY HISTORY Noncontributory SOCIAL HISTORY Negative for alcohol, tobacco or drugs PHYSICAL EXAMINATION GENERAL: Well-nourished, well-developed patient HEENT: Atraumatic, normocephalic. Intact vision. NECK: Trachea in the midline. No JVD, no carotid bruits. CARDIOVASCULAR: Regular rate and rhythm with no murmurs. RESPIRATORY: Clear to auscultation. Breath sounds are equal MUSCULOSKELETAL: Extremities without clubbing, cyanosis or edema. Prominent bilateral flat feet NEUROLOGIC: Awake, alert, oriented, unable to assess for speech since he is deaf and does not speak and uses sign language. cranial nerves II-XII are grossly intact. Motor examination is also limited because of the difficulty in communication but essentially m system is normal. He has intact weakness or focal weakness, no atrophy. Normal abnormal movements were noted. Strength 5/5 bilateral symmetrical. Sensation is intact throughout. Cerebellar functions are intact. Reflexes 2+ bilateral symmetrical other than the ankles bilateral suppressed. Gait is antalgic with negative Romberg and no ataxia. DIAGNOSTIC IMPRESSION 1. Behavioral changes and chronic psychiatric symptoms In light of the nonfocal neurological exam, this is unlikely to be of neurologic deficit at this time. PLAN 1. The patient is stable from the neurology standpoint. 2. No need to pursue further neurologic workup Thank you for the opportunity to participate in the care of your patient. MD SONIA Bowie /8:30 PM /9:30 PM MTDD
[2016-06-21 06:00] VITALS: BP 136/72; PULSE 77; RESP 17; TEMP 99; O2SAT 99
[2016-06-21] MEDS: INSULIN ASPART SUPPLEMENTAL SCALE SQ SCH ×4 (06:13→21:00)
[2016-06-21] MEDS: CLINDAMYCIN 150 MG CAP PO SCH ×3 (06:25→17:30)
[2016-06-21] MEDS: INSULIN HUMAN NPH/R 70/30 1,000 UNITS/10 ML VIAL SQ SCH ×2 (07:57→16:21)
[2016-06-21] MEDS: ESCITALOPRAM OXALATE 20 MG TAB PO SCH (08:28)
[2016-06-21] MEDS: LITHIUM CARBONATE 300 MG CAP PO SCH (08:28)
[2016-06-21] MEDS: levOCARNitine 10% ORAL SOLN 118 ML BTL PO SCH ×3 (08:28→17:30)
[2016-06-21] MEDS: ENALAPRIL MALEATE 10 MG TAB PO SCH (08:28)
[2016-06-21] MEDS: BACITRACIN TOP OINT 15 GM TUBE TOP SCH (08:29)
[2016-06-21] MEDS: metFORMIN HCL 500 MG TAB PO SCH ×2 (08:29→21:41)
[2016-06-21] MEDS: PANTOPRAZOLE SOD 20 MG DELAYED RELEASE TAB PO SCH (08:29)
[2016-06-21] MEDS: ACETAMINOPHEN 325 MG TAB PO PRN (14:16)
--- NOTE | 2016-06-21 15:46 | HHI.PYPN ---
Subjective Remarks Patient seen and examined with nursing staff. Chart reviewed. Case discussed with nursing staff. On my examination today, patient reports good sleep and notes that he is feeling well. He is pleased with his blood sugar control. He requests that someone bring another pair of eyeglasses for him. No reported side effects from medications. Review of Systems Other No physical complaints reported Objective Alert: Yes [place]: Person (at least) Mood: Calm Affect: Blunted Memory Intact: Comment (not assessed) Hallucinations: Other (none reported) Delusions: Yes Delusion Type: Other (patient does not verbalize delusional material today, but I suspect he remains unchanged underlying) Suicidal: Ideation (none) Homicidal: Ideation (none) Insight/Judgement Poor Remarks No motoric abnormalities noted Labs Labs reviewed. No new labs. Vitals/IOs Vital Signs Date Time Temp Pulse Resp B/P Pulse Ox O2 Delivery O2 Flow Rate FiO2 06/21/16 06:00 99.0 77 17 136/72 99 Assessment & Plan Problem List: (1) Schizoaffective disorder, bipolar type ICD Code: F25.0 Assessment & Plan Continue current psychotropics as ordered. Ammonia level ordered for tomorrow. Neurology input noted and appreciated; a neurological etiology for patient's intermittent and situational behavioral disturbance is not suspected. Continue other medications include as ordered. Next time patient's sister calls the unit , nursing staff will ask her to bring and another pair of glasses. Justification for Cont. Inpt. Risk for decompensation Discharge Planning Placement versus state hospital Request HC Surrog/Guard Advoc?: Yes Chetan Cuellar MD Jun 21, 2016 15:45
[2016-06-21] MEDS: DIVALPROEX DR 500 MG TABEC PO SCH (21:41)
[2016-06-21] MEDS: MELATONIN 5 MG TAB PO SCH (21:41)
[2016-06-22] MEDS: CLINDAMYCIN 150 MG CAP PO SCH ×2 (00:37→06:15)
[2016-06-22 05:33] VITALS: BP 127/66; PULSE 72; RESP 18; TEMP 98.4; O2SAT 96
[2016-06-22] MEDS: INSULIN ASPART SUPPLEMENTAL SCALE SQ SCH ×4 (06:24→20:14)
[2016-06-22] MEDS: levOCARNitine 10% ORAL SOLN 118 ML BTL PO SCH ×3 (09:00→17:53)
[2016-06-22] MEDS: LITHIUM CARBONATE 300 MG CAP PO SCH (09:38)
[2016-06-22] MEDS: PANTOPRAZOLE SOD 20 MG DELAYED RELEASE TAB PO SCH (09:38)
[2016-06-22] MEDS: ESCITALOPRAM OXALATE 20 MG TAB PO SCH (09:38)
[2016-06-22] MEDS: ENALAPRIL MALEATE 10 MG TAB PO SCH (09:39)
[2016-06-22] MEDS: metFORMIN HCL 500 MG TAB PO SCH ×2 (09:39→20:14)
[2016-06-22] MEDS: INSULIN HUMAN NPH/R 70/30 1,000 UNITS/10 ML VIAL SQ SCH ×2 (09:40→17:54)
[2016-06-22] MEDS: BACITRACIN TOP OINT 15 GM TUBE TOP SCH (09:41)
--- NOTE | 2016-06-22 15:55 | HHI.PYPN ---
Subjective Remarks Patient seen and examined with nursing staff. Chart reviewed. Case discussed with nursing staff. No episodes of behavioral disturbance noted. On my examination today with the benefit of the computer-based interpretation service , the patient has no particular complaints except to note that he is having some discomfort from the insulin injections and wonders if something might be done for this. We discussed switching the injection site to the arm. He is calm and pleasant on examination and complements the care he is receiving here. Given patient's sister's concerns about possible dementia, I completed a full Mini-Mental Status Examination with this patient. He scored 25 out of 30 with deficits only on the serial sevens task, but I was informed by the telephone betting clerk that this is likely difficult to convey in a sign language format. There also may be some difficulties given the patient's baseline level of intellectual function. No reported side effects from medications. Review of Systems Other No reported physical complaints except for the discomfort from the insulin injections. Objective Alert: Yes [place]: Person, Place, Date, Situation Mood: Calm Affect: Blunted Memory Intact: Comment (see above) Hallucinations: Other (no AVH) Delusions: No Delusion Type: Other (patient does not describe any delusional material today, but his delusion about having family in [place] seems fairly loculated) Suicidal: Ideation (no SI voiced) Homicidal: Ideation (no HI voiced) Insight/Judgement Poor Remarks No motoric abnormalities noted Labs Test 06/22/16 07:05 Ammonia 14 MCMOL/L Labs reviewed. Ammonia level significantly improved with Carnitor, which patient is able to tolerate better than lactulose. Vitals/IOs Vital Signs Date Time Temp Pulse Resp B/P Pulse Ox O2 Delivery O2 Flow Rate FiO2 06/22/16 05:33 98.4 72 18 127/66 96 Assessment & Plan Problem List: (1) Schizoaffective disorder, bipolar type ICD Code: F25.0 Assessment & Plan Continue current psychotropics as ordered. Continue other medications and care as ordered. I do not suspect a dementia diagnosis in this patient at this time , and I suspect his deficits in Mini-Mental Status Examination performance are better explained by the factors delineated above. Justification for Cont. Inpt. Risk for decompensation Discharge Planning Placement Request HC Surrog/Guard Advoc?: Yes Chetan Cuellar MD Jun 22, 2016 15:55
[2016-06-22] MEDS: DIVALPROEX DR 500 MG TABEC PO SCH (20:14)
[2016-06-22] MEDS: MELATONIN 5 MG TAB PO SCH (20:14)
[2016-06-22 21:42] VITALS: BP 119/63; PULSE 73; RESP 18; TEMP 97.6; O2SAT 96
[2016-06-23] MEDS: INSULIN ASPART SUPPLEMENTAL SCALE SQ SCH ×4 (05:59→21:26)
[2016-06-23 06:04] VITALS: BP 111/58; PULSE 74; RESP 18; TEMP 98.3; O2SAT 96
[2016-06-23] MEDS: INSULIN HUMAN NPH/R 70/30 1,000 UNITS/10 ML VIAL SQ SCH ×2 (08:00→17:00)
[2016-06-23 08:30] VITALS: BP 138/88
[2016-06-23] MEDS: PANTOPRAZOLE SOD 20 MG DELAYED RELEASE TAB PO SCH (08:45)
[2016-06-23] MEDS: ENALAPRIL MALEATE 10 MG TAB PO SCH (08:45)
[2016-06-23] MEDS: ESCITALOPRAM OXALATE 20 MG TAB PO SCH (08:45)
[2016-06-23] MEDS: LITHIUM CARBONATE 300 MG CAP PO SCH (08:45)
[2016-06-23] MEDS: metFORMIN HCL 500 MG TAB PO SCH ×2 (08:45→20:48)
[2016-06-23] MEDS: BACITRACIN TOP OINT 15 GM TUBE TOP SCH (08:46)
[2016-06-23] MEDS: levOCARNitine 10% ORAL SOLN 118 ML BTL PO SCH ×4 (08:46→17:23)
--- NOTE | 2016-06-23 15:06 | HHI.PYPN ---
Subjective Remarks Patient seen and examined with assistance of computer-based interpretation services. Chart reviewed. Case discussed with nursing staff. Case discussed with counselor. On my examination today, patient complains of some nausea associated with insulin administration. He does not appear to of had any episodes of hypoglycemia recently but is endeavoring to describe this symptomatology. Nurse informs me that the patient was endeavoring to obtain full sugar debbie juanis, but nursing staff declined because of his diabetes. Possibly, he was trying to report hypoglycemic symptoms to obtain the wanted debbie juanis. He denies any side effects from medications otherwise. His delusions regarding family in [place] remain unchanged. He describes his sister Kassandra as "dangerous" and says that he does not want her involved in his care. When I try to discuss placement with him, he says that he will arrange his own housing in [place] and will follow-up with a psychiatric provider there. No reported side effects from medications other than the above. Review of Systems ROS Limitations: Poor Historian Other Except as above, no physical complaints. Objective Alert: Yes [place]: Person, Place, Date Mood: Calm Affect: Blunted Memory Intact: Comment (not formally assessed) Hallucinations: Other (no AVH) Delusions: Yes Delusion Type: Other (delusion of having family in [place]) Suicidal: Ideation (none) Homicidal: Ideation (none) Insight/Judgement Poor Remarks No abnormal motor movements noted Labs Labs reviewed. No new labs. Blood glucoses reviewed. Blood sugar control has been very good lately with most readings in the 100s with only a few excursions into the 200s. Vitals/IOs Vital Signs Date Time Temp Pulse Resp B/P Pulse Ox O2 Delivery O2 Flow Rate FiO2 06/23/16 08:30 138/88 06/23/16 06:04 98.3 74 18 96 Assessment & Plan Problem List: (1) Schizoaffective disorder, bipolar type ICD Code: F25.0 Assessment & Plan Continue current medications and care as ordered. Justification for Cont. Inpt. Risk for decompensation in a lower level of care. Discharge Planning Placement. May require [facility] if unwilling to consider placement. Request HC Surrog/Guard Advoc?: Yes Chetan Cuellar MD Jun 23, 2016 15:06
[2016-06-23] MEDS: MELATONIN 5 MG TAB PO SCH (20:48)
[2016-06-23] MEDS: DIVALPROEX DR 500 MG TABEC PO SCH (20:48)
[2016-06-24 05:48] VITALS: BP 138/72; PULSE 71; RESP 18; TEMP 97.2; O2SAT 96
[2016-06-24] MEDS: INSULIN ASPART SUPPLEMENTAL SCALE SQ SCH ×4 (06:04→21:00)
[2016-06-24] MEDS: INSULIN HUMAN NPH/R 70/30 1,000 UNITS/10 ML VIAL SQ SCH ×2 (08:00→17:54)
[2016-06-24] MEDS: ENALAPRIL MALEATE 10 MG TAB PO SCH (08:26)
[2016-06-24] MEDS: PANTOPRAZOLE SOD 20 MG DELAYED RELEASE TAB PO SCH (08:26)
[2016-06-24] MEDS: ESCITALOPRAM OXALATE 20 MG TAB PO SCH (08:26)
[2016-06-24] MEDS: LITHIUM CARBONATE 300 MG CAP PO SCH (08:26)
[2016-06-24] MEDS: metFORMIN HCL 500 MG TAB PO SCH ×2 (08:26→21:00)
[2016-06-24] MEDS: levOCARNitine 10% ORAL SOLN 118 ML BTL PO SCH ×2 (08:29→18:00)
[2016-06-24] MEDS: BACITRACIN TOP OINT 15 GM TUBE TOP SCH (09:00)
--- NOTE | 2016-06-24 17:15 | HHI.PYPN ---
Subjective Remarks Patient seen and examined with computer based district plant superintendent. Chart reviewed. I note patient continues to refuse Carnitor, and I have emphasized its importance to pt in combating hyperammonemia, and he has agreed to take it. Case discussed with RN, who reports pt acted out yesterday when not given debbie juanis but otherwise has been calm. I ask the patient about this episode during our meeting today, and he says he got upset because he thought someone had taken all of the debbie juanis. I emphasize that full-sugar debbie juanis is not part of his diabetic diet, and this is why he was not given any. No SI or HI voiced. Presently calm. No side effects from meds. Review of Systems Other No reported physical complaints. Objective Alert: Yes [place]: Person, Place, Date Mood: Calm (Remains calm) Affect: Other (Somewhat blunted) Memory Intact: Comment (Not formally assessed today) Hallucinations: Other (None) Delusions: Yes Delusion Type: Other (delusion of having family in [place]) Suicidal: Ideation (No SI voiced) Homicidal: Ideation (No HI voiced) Insight/Judgement Poor Remarks No hand tremor or other motor abnormalities noted. Labs Labs reviewed. No new labs. Bedside glucoses reviewed. Vitals/IOs Vital Signs Date Time Temp Pulse Resp B/P Pulse Ox O2 Delivery O2 Flow Rate FiO2 06/24/16 05:48 97.2 71 18 138/72 96 Assessment & Plan Problem List: (1) Schizoaffective disorder, bipolar type ICD Code: F25.0 Assessment & Plan Continue current psychotropics as ordered. Continue other medications and care as ordered. Justification for Cont. Inpt. Risk for decompensation. Discharge Planning Placement vs. State. I will go ahead and initiate a state hospital referral. Request HC Surrog/Guard Advoc?: Yes Chetan Cuellar MD Jun 24, 2016 17:15
[2016-06-24 19:01] VITALS: BP 129/60; PULSE 64; RESP 17; TEMP 97.4; O2SAT 96
[2016-06-24] MEDS: DIVALPROEX DR 500 MG TABEC PO SCH (20:59)
[2016-06-24] MEDS: MELATONIN 5 MG TAB PO SCH (21:00)
[2016-06-24] MEDS ORDERED: HALOPERIDOL LACTATE 5 MG/ML AMP ONE (21:38)
[2016-06-24] MEDS ORDERED: diphenhydrAMINE HCL 50 MG/ML VIAL IM SCH (22:00)
[2016-06-24] MEDS ORDERED: HALOPERIDOL LACTATE 5 MG/ML AMP IM SCH (22:00)
[2016-06-24] MEDS ORDERED: LORazepam 2 MG/ML VIAL IM SCH (22:00)
[2016-06-25 06:12] VITALS: BP 108/64; PULSE 81; RESP 18; TEMP 97.4; O2SAT 98
[2016-06-25] MEDS: INSULIN ASPART SUPPLEMENTAL SCALE SQ SCH ×4 (07:00→20:21)
[2016-06-25] MEDS: INSULIN HUMAN NPH/R 70/30 1,000 UNITS/10 ML VIAL SQ SCH ×2 (08:00→17:00)
[2016-06-25] MEDS: metFORMIN HCL 500 MG TAB PO SCH ×2 (08:54→20:26)
[2016-06-25] MEDS: PANTOPRAZOLE SOD 20 MG DELAYED RELEASE TAB PO SCH (08:54)
[2016-06-25] MEDS: ESCITALOPRAM OXALATE 20 MG TAB PO SCH (08:55)
[2016-06-25] MEDS: LITHIUM CARBONATE 300 MG CAP PO SCH (08:55)
[2016-06-25] MEDS: levOCARNitine 10% ORAL SOLN 118 ML BTL PO SCH ×3 (09:00→18:00)
[2016-06-25] MEDS: ENALAPRIL MALEATE 10 MG TAB PO SCH (09:00)
[2016-06-25] MEDS: BACITRACIN TOP OINT 15 GM TUBE TOP SCH (09:00)
--- NOTE | 2016-06-25 11:26 | HHI.PYPN ---
Subjective Remarks Patient seen and examined. Chart reviewed. Case discussed with nursing staff. Patient examined with counselor, nursing staff and document design specialist. I was called by nursing staff overnight because the patient became agitated and combative with staff. I ordered him medicated with Haldol, Ativan and Benadryl ETO. He was transferred to the 2700 unit for agitation. In discussing the matter further with nursing staff this morning, the patient was apparently agitated because he couldn't get a piece of fruit when he wanted to. The patient this morning takes no ownership for his behavior and insists that only others were to blame. No SI or HI voiced. Insight is poor. No side effects from medications. Review of Systems ROS Limitations: Poor Historian Other No reported physical complaints Objective Alert: Yes [place]: Person, Place, Date Mood: Other (presently calm but agitated overnight) Affect: Other (Somewhat blunted) Memory Intact: Comment (not formally assessed) Hallucinations: Other (no AVH) Delusions: Yes Delusion Type: Other (delusions about family in [place] was not specifically discussed in session today but I suspect remains unchanged) Suicidal: Ideation (no SI) Homicidal: Ideation (no HI) Insight/Judgement Poor Remarks No motoric abnormalities noted Labs Labs reviewed. No new labs. Vitals/IOs Vital Signs Date Time Temp Pulse Resp B/P Pulse Ox O2 Delivery O2 Flow Rate FiO2 06/25/16 06:12 97.4 81 18 108/64 98 Assessment & Plan Problem List: (1) Schizoaffective disorder, bipolar type ICD Code: F25.0 Assessment & Plan Patient with ongoing, albeit sporadic behavioral tantrums. I will titrate patient's lithium to try to manage this impulsive aggression. Plan to check a level and BMP after the weekend. Continue other medications and care as ordered. Justification for Cont. Inpt. Risk for decompensation Discharge Planning Placement versus state psychiatric hospital Request HC Surrog/Guard Advoc?: Yes Chetan Cuellar MD Jun 25, 2016 11:26
[2016-06-25 19:39] VITALS: BP 116/58; PULSE 81; RESP 16; TEMP 97.7; O2SAT 93
[2016-06-25] MEDS: diphenhydrAMINE HCL 50 MG CAP - HS PRN PO (20:24)
[2016-06-25] MEDS: LITHIUM CARBONATE 300 MG TAB PO SCH (20:25)
[2016-06-25] MEDS: DIVALPROEX DR 500 MG TABEC PO SCH (20:26)
[2016-06-25] MEDS: MELATONIN 5 MG TAB PO SCH (21:50)
[2016-06-26] MEDS: IBUPROFEN 600 MG TAB PO PRN (04:11)
[2016-06-26] MEDS: INSULIN ASPART SUPPLEMENTAL SCALE SQ SCH ×4 (06:39→20:34)
[2016-06-26 06:43] VITALS: BP 127/71; PULSE 69; RESP 18; TEMP 96.6; O2SAT 97
[2016-06-26] MEDS: INSULIN HUMAN NPH/R 70/30 1,000 UNITS/10 ML VIAL SQ SCH ×2 (08:00→16:45)
[2016-06-26] MEDS: metFORMIN HCL 500 MG TAB PO SCH ×2 (08:05→20:29)
[2016-06-26] MEDS: PANTOPRAZOLE SOD 20 MG DELAYED RELEASE TAB PO SCH (08:05)
[2016-06-26] MEDS: ENALAPRIL MALEATE 10 MG TAB PO SCH (08:05)
[2016-06-26] MEDS: ESCITALOPRAM OXALATE 20 MG TAB PO SCH (08:05)
[2016-06-26] MEDS: LITHIUM CARBONATE 300 MG CAP PO SCH (08:05)
[2016-06-26] MEDS: levOCARNitine 10% ORAL SOLN 118 ML BTL PO SCH ×3 (08:06→16:09)
[2016-06-26] MEDS: BACITRACIN TOP OINT 15 GM TUBE TOP SCH (09:00)
--- NOTE | 2016-06-26 10:32 | HHI.PYPN ---
Subjective Remarks Patient seen and examined with counselor and nursing staff. Chart reviewed. Case discussed with nursing staff. Patient examined with the assistance of signals intelligence superintendent. Patient is pleased with the adjustment in his lithium dose. He denies side effects from medications. He continues to describe delusions of family in [place] and says that his goal is to "get money from Social Security and get on the bus" to [place]. He is agreeable to assisted living placement in the meanwhile. Review of Systems ROS Limitations: Poor Historian Other No physical complaints today Objective Alert: Yes [place]: Person, Place, Date Mood: Calm Affect: Other (full and reactive) Memory Intact: Comment (not formally assessed) Hallucinations: Other (none) Delusions: Yes Delusion Type: Other (delusions of family in [place]) Suicidal: Ideation (none) Homicidal: Ideation (none) Insight/Judgement Poor Remarks Thought processes fairly linear within delusional system Labs Labs reviewed. No new labs. Vitals/IOs Vital Signs Date Time Temp Pulse Resp B/P Pulse Ox O2 Delivery O2 Flow Rate FiO2 06/26/16 06:43 96.6 69 18 127/71 97 Assessment & Plan Problem List: (1) Schizoaffective disorder, bipolar type ICD Code: F25.0 Assessment & Plan Continue current psychotropics as ordered. Patient could likely benefit from an antipsychotic, but patient's sister and guardian advocate has declined to provide consent for this. Continue other medications and care as ordered. Justification for Cont. Inpt. Risk for decompensation Discharge Planning Placement versus count includes the [facility] Request HC Surrog/Guard Advoc?: Yes Chetan Cuellar MD Jun 26, 2016 10:32
[2016-06-26] MEDS: DIVALPROEX DR 500 MG TABEC PO SCH (20:29)
[2016-06-26] MEDS: MELATONIN 5 MG TAB PO SCH (20:29)
[2016-06-26] MEDS: LITHIUM CARBONATE 300 MG TAB PO SCH (20:29)
[2016-06-26 21:00] VITALS: BP 101/63; PULSE 74; RESP 16; TEMP 98.5; O2SAT 99
[2016-06-27 05:37] VITALS: BP 121/65; PULSE 70; RESP 18; TEMP 97; O2SAT 98
[2016-06-27] MEDS: INSULIN ASPART SUPPLEMENTAL SCALE SQ SCH ×4 (06:03→21:00)
[2016-06-27] MEDS: levOCARNitine 10% ORAL SOLN 118 ML BTL PO SCH ×3 (09:00→17:11)
[2016-06-27] MEDS: INSULIN HUMAN NPH/R 70/30 1,000 UNITS/10 ML VIAL SQ SCH ×2 (09:06→17:11)
[2016-06-27] MEDS: BACITRACIN TOP OINT 15 GM TUBE TOP SCH (09:06)
[2016-06-27] MEDS: ENALAPRIL MALEATE 10 MG TAB PO SCH (09:07)
[2016-06-27] MEDS: metFORMIN HCL 500 MG TAB PO SCH ×2 (09:08→21:11)
[2016-06-27] MEDS: ESCITALOPRAM OXALATE 20 MG TAB PO SCH (09:08)
[2016-06-27] MEDS: PANTOPRAZOLE SOD 20 MG DELAYED RELEASE TAB PO SCH (09:08)
[2016-06-27] MEDS: LITHIUM CARBONATE 300 MG CAP PO SCH (09:08)
--- NOTE | 2016-06-27 14:00 | HHI.PYPN ---
Subjective Remarks Pt seen and discussed with staff. Pt is compliant with medication and denies side effects. No behavioral problems today on unit. He describes mood as "good, fine". No sleep disturbances. No SI/HI. Review of Systems Psychiatric: COMPLAINS OF: Delusions Objective Alert: Yes [place]: Person, Place, Date Mood: Calm Affect: Other (full and reactive) Memory Intact: Comment (not formally assessed) Hallucinations: Other (none) Delusions: Yes Delusion Type: Other (delusions of family in [place]) Suicidal: Ideation (none) Homicidal: Ideation (none) Insight/Judgement limited Vitals/IOs Vital Signs Date Time Temp Pulse Resp B/P Pulse Ox O2 Delivery O2 Flow Rate FiO2 06/27/16 05:37 97.0 70 18 121/65 98 Assessment & Plan Problem List: (1) Schizoaffective disorder, bipolar type ICD Code: F25.0 Assessment & Plan Continue current tx plan. Estimated LOS: days Justification for Cont. Inpt. severe impairments in social functioning, risk of decompensation Request HC Surrog/Guard Advoc?: Yes Marychuy Yoo MD Jun 27, 2016 14:00
[2016-06-27 19:47] VITALS: BP 118/61; PULSE 71; RESP 18; TEMP 96.5; O2SAT 99
[2016-06-27] MEDS: DIVALPROEX DR 500 MG TABEC PO SCH (21:10)
[2016-06-27] MEDS: LITHIUM CARBONATE 300 MG TAB PO SCH (21:12)
[2016-06-27] MEDS: MELATONIN 5 MG TAB PO SCH (21:12)
[2016-06-28] MEDS: ACETAMINOPHEN 325 MG TAB PO PRN ×2 (04:24→23:10)
[2016-06-28 06:00] VITALS: BP 135/72; PULSE 66; RESP 18; TEMP 96.4; O2SAT 96
[2016-06-28] MEDS: IBUPROFEN 600 MG TAB PO PRN ×2 (06:19→16:05)
[2016-06-28] MEDS: INSULIN ASPART SUPPLEMENTAL SCALE SQ SCH ×4 (06:25→20:34)
[2016-06-28] MEDS: BACITRACIN TOP OINT 15 GM TUBE TOP SCH (08:38)
[2016-06-28] MEDS: INSULIN HUMAN NPH/R 70/30 1,000 UNITS/10 ML VIAL SQ SCH ×2 (08:38→16:58)
[2016-06-28] MEDS: levOCARNitine 10% ORAL SOLN 118 ML BTL PO SCH ×3 (08:40→16:58)
[2016-06-28] MEDS: ENALAPRIL MALEATE 10 MG TAB PO SCH (08:41)
[2016-06-28] MEDS: LITHIUM CARBONATE 300 MG CAP PO SCH (08:41)
[2016-06-28] MEDS: PANTOPRAZOLE SOD 20 MG DELAYED RELEASE TAB PO SCH (08:41)
[2016-06-28] MEDS: metFORMIN HCL 500 MG TAB PO SCH ×2 (08:41→20:30)
[2016-06-28] MEDS: ESCITALOPRAM OXALATE 20 MG TAB PO SCH (08:41)
--- NOTE | 2016-06-28 15:00 | HHI.PYPN ---
Subjective Remarks Pt seen and discussed with staff. Pt reports that he is feeling good and has no complaints. Still with easy agitation, especially centered around food and routine. Pt is very rigid and pt became agitated when he did not receive the same thing he eats everyday at lunch. No SI/HI Medication compliant. Objective Alert: Yes [place]: Person, Place, Date Mood: Calm Affect: Other (full and reactive) Memory Intact: Comment (not formally assessed) Hallucinations: Other (none) Delusions: Yes Delusion Type: Other (delusions of family in [place]) Suicidal: Ideation (none) Homicidal: Ideation (none) Insight/Judgement limited Vitals/IOs Vital Signs Date Time Temp Pulse Resp B/P Pulse Ox O2 Delivery O2 Flow Rate FiO2 06/28/16 06:00 96.4 66 18 135/72 96 Assessment & Plan Problem List: (1) Schizoaffective disorder, bipolar type ICD Code: F25.0 Assessment & Plan Continue current tx plan. Estimated LOS: days Justification for Cont. Inpt. risk of decompensation Request HC Surrog/Guard Advoc?: Yes Marychuy Yoo MD Jun 28, 2016 15:00
[2016-06-28 19:34] VITALS: BP 119/60; PULSE 67; RESP 16; TEMP 98.6; O2SAT 100
[2016-06-28] MEDS: LITHIUM CARBONATE 300 MG TAB PO SCH (20:30)
[2016-06-28] MEDS: DIVALPROEX DR 500 MG TABEC PO SCH (20:30)
[2016-06-28] MEDS: MELATONIN 5 MG TAB PO SCH (20:30)
[2016-06-29] MEDS: IBUPROFEN 600 MG TAB PO PRN ×3 (02:24→18:25)
[2016-06-29 05:53] VITALS: BP 143/76; PULSE 65; RESP 18; TEMP 97.8; O2SAT 97
[2016-06-29] MEDS: INSULIN ASPART SUPPLEMENTAL SCALE SQ SCH ×4 (06:39→20:31)
[2016-06-29 07:58] LABS: BICARBONATE 27.5 MEQ/L (21.0-32.0); POTASSIUM 4.1 MEQ/L (3.5-5.1)
[2016-06-29] MEDS: INSULIN HUMAN NPH/R 70/30 1,000 UNITS/10 ML VIAL SQ SCH ×2 (08:00→16:22)
[2016-06-29] MEDS: PANTOPRAZOLE SOD 20 MG DELAYED RELEASE TAB PO SCH (09:00)
[2016-06-29] MEDS: ENALAPRIL MALEATE 10 MG TAB PO SCH (09:00)
[2016-06-29] MEDS: LITHIUM CARBONATE 300 MG CAP PO SCH (09:00)
[2016-06-29] MEDS: levOCARNitine 10% ORAL SOLN 118 ML BTL PO SCH ×3 (09:00→17:04)
[2016-06-29] MEDS: ESCITALOPRAM OXALATE 20 MG TAB PO SCH (09:00)
[2016-06-29] MEDS: metFORMIN HCL 500 MG TAB PO SCH ×2 (09:35→20:25)
[2016-06-29] MEDS: BACITRACIN TOP OINT 15 GM TUBE TOP SCH (09:40)
--- NOTE | 2016-06-29 10:50 | HHI.PYPN ---
Subjective Remarks Patient seen and examined with counselor in industrial retrofit designer. Chart reviewed. Case discussed with nursing staff. On my examination today, patient has no particular complaints besides some mild musculoskeletal back pain which is reportedly chronic. Left to his own devices, he continues to say that he would like to go to [place]. He seems more open however to the notion of assisted living placement in the more immediate future. No SI or HI voiced. Denies side effects from medications. No other issues noted. Review of Systems ROS Limitations: Poor Historian Other No reported physical complaints except for musculoskeletal back pain, chronic, mild Objective Alert: Yes [place]: Person, Place (at least) Mood: Calm Affect: Blunted Memory Intact: Comment (not formally assessed) Hallucinations: Other (no AVH) Delusions: Yes Delusion Type: Other (as before, delusions of family in [place]) Suicidal: Ideation (no SI) Homicidal: Ideation (no HI) Insight/Judgement Poor Remarks No abnormal motor movements noted. Appears to be in no acute physical distress. Labs Test 06/29/16 06:11 Sodium Level 138 MEQ/L Potassium Level 4.1 MEQ/L Chloride Level 102 MEQ/L Carbon Dioxide Level 27.5 MEQ/L Anion Gap 9 MEQ/L Blood Urea Nitrogen 15 MG/DL Creatinine 1.02 MG/DL Estimat Glomerular Filtration 75 ML/MIN Rate Random Glucose 89 MG/DL Calcium Level 9.4 MG/DL [place] Level 0.6 MEQ/L Labs reviewed. [place] level closer to the therapeutic range and renal function improved as well. Vitals/IOs Vital Signs Date Time Temp Pulse Resp B/P Pulse Ox O2 Delivery O2 Flow Rate FiO2 06/29/16 05:53 97.8 65 18 143/76 97 Assessment & Plan Problem List: (1) Schizoaffective disorder, bipolar type ICD Code: F25.0 Assessment & Plan Continue current psychotropics as ordered. Continue other medications and care as ordered. Justification for Cont. Inpt. Risk for decompensation Discharge Planning [facility] Request HC Surrog/Guard Advoc?: Yes Chetan Cuellar MD Jun 29, 2016 10:50
[2016-06-29] MEDS: LITHIUM CARBONATE 300 MG TAB PO SCH (20:26)
[2016-06-29] MEDS: MELATONIN 5 MG TAB PO SCH (20:29)
[2016-06-29 20:33] VITALS: BP 121/62; PULSE 70; RESP 18; TEMP 98; O2SAT 96
[2016-06-29] MEDS: DIVALPROEX DR 500 MG TABEC PO SCH (21:00)
[2016-06-30] MEDS: ACETAMINOPHEN 325 MG TAB PO PRN (00:02)
[2016-06-30] MEDS: IBUPROFEN 600 MG TAB PO PRN ×2 (02:05→20:11)
[2016-06-30] MEDS: diphenhydrAMINE HCL 50 MG CAP - HS PRN PO (03:08)
[2016-06-30 06:37] VITALS: BP 140/68; PULSE 63; RESP 18; TEMP 97.8; O2SAT 98
[2016-06-30] MEDS: INSULIN ASPART SUPPLEMENTAL SCALE SQ SCH ×4 (06:37→20:12)
[2016-06-30] MEDS: INSULIN HUMAN NPH/R 70/30 1,000 UNITS/10 ML VIAL SQ SCH ×2 (08:00→17:00)
[2016-06-30] MEDS: levOCARNitine 10% ORAL SOLN 118 ML BTL PO SCH ×3 (08:10→17:18)
[2016-06-30] MEDS: PANTOPRAZOLE SOD 20 MG DELAYED RELEASE TAB PO SCH (09:00)
[2016-06-30] MEDS: LITHIUM CARBONATE 300 MG CAP PO SCH (09:00)
[2016-06-30] MEDS: metFORMIN HCL 500 MG TAB PO SCH ×2 (09:00→20:12)
[2016-06-30] MEDS: BACITRACIN TOP OINT 15 GM TUBE TOP SCH (09:00)
[2016-06-30] MEDS: ESCITALOPRAM OXALATE 20 MG TAB PO SCH (09:00)
[2016-06-30] MEDS: ENALAPRIL MALEATE 10 MG TAB PO SCH (09:00)
--- NOTE | 2016-06-30 12:24 | HHI.PYPN ---
Subjective Remarks Patient seen and examined with counselor, nursing staff and occupational therapist in treatment team along with mechanical systems designer. Chart reviewed. Case discussed in treatment team. On my examination today, the patient is in good spirits. He does complain of some mild chronic back pain. He continues to persist in his belief that he has family in [place] that he will be joining on discharge. No side effects from medications. I additionally returned a call to patient's sister and healthcare surrogate Ms. Neal. We have an extensive discussion about patient's hospital course, treatment plan and disposition planning. Sister expresses some trepidation about placing patient on state hospital list, but I explain that given the lengthy [facility] it is most prudent to initiate the referral now, and she understands this. She is still hopeful that some alternative placement can be found. We discuss the disruptiveness of patient's delusion of having family in [place], and I suggest that we might try a low- dose antipsychotic. After an extensive discussion of the risks and benefits, Ms. Neal agrees to a trial of Haldol. She thanks me for the call. Review of Systems ROS Limitations: Poor Historian Other C/o back pain without associated weakness or radiation. Otherwise, no physical complaints. Objective Alert: Yes [place]: Person, Place Mood: Calm Affect: Blunted Memory Intact: Comment (Not assessed today) Hallucinations: Other (No AVH) Delusions: Yes Delusion Type: Other (Ongoing delusions of family in [place]) Suicidal: Ideation (no SI) Homicidal: Ideation (no HI) Insight/Judgement Poor Remarks No abnormal motor movements noted. Labs Labs reviewed Vitals/IOs Vital Signs Date Time Temp Pulse Resp B/P Pulse Ox O2 Delivery O2 Flow Rate FiO2 06/30/16 06:37 97.8 63 18 140/68 98 Intake and Output 06/29/16 06/29/16 06/30/16 08:00 16:00 00:00 Intake Total 480 ml Balance 480 ml Assessment & Plan Problem List: (1) Schizoaffective disorder, bipolar type ICD Code: F25.0 Assessment & Plan Add low-dose Haldol 2 mg twice daily. Consult the hospitalist for the back pain. Continue other medications and care as ordered. Justification for Cont. Inpt. Risk for decompensation Discharge Planning Placement versus state psychiatric hospital Request HC Surrog/Guard Advoc?: Yes Chaiffetz,Chetan B. MD Jun 30, 2016 12:24
[2016-06-30 18:53] VITALS: BP 127/69; PULSE 61; RESP 18; TEMP 97.3; O2SAT 100
[2016-06-30] MEDS: ACETAMINOPHEN/HYDROcodone 325 MG/5 MG TAB PO PRN (20:11)
[2016-06-30] MEDS: HALOPERIDOL 2 MG TAB PO SCH (20:11)
[2016-06-30] MEDS: LITHIUM CARBONATE 300 MG TAB PO SCH (20:11)
[2016-06-30] MEDS: MELATONIN 5 MG TAB PO SCH (20:12)
[2016-06-30] MEDS: DIVALPROEX DR 500 MG TABEC PO SCH (20:12)
[2016-07-01] MEDS: ACETAMINOPHEN/HYDROcodone 325 MG/5 MG TAB PO PRN ×4 (01:15→21:43)
[2016-07-01 05:44] VITALS: BP 126/89; PULSE 68; RESP 18; TEMP 97.4; O2SAT 98
[2016-07-01] MEDS: INSULIN ASPART SUPPLEMENTAL SCALE SQ SCH ×4 (06:06→20:01)
[2016-07-01] MEDS: hydrOXYzine HCL 50 MG TAB PO PRN ×2 (06:32→09:21)
[2016-07-01] MEDS: levOCARNitine 10% ORAL SOLN 118 ML BTL PO SCH ×3 (09:00→18:00)
[2016-07-01] MEDS: BACITRACIN TOP OINT 15 GM TUBE TOP SCH (09:00)
[2016-07-01] MEDS: ENALAPRIL MALEATE 10 MG TAB PO SCH (09:20)
[2016-07-01] MEDS: metFORMIN HCL 500 MG TAB PO SCH ×2 (09:20→20:49)
[2016-07-01] MEDS: ESCITALOPRAM OXALATE 20 MG TAB PO SCH (09:20)
[2016-07-01] MEDS: HALOPERIDOL 2 MG TAB PO SCH ×2 (09:20→20:48)
[2016-07-01] MEDS: PANTOPRAZOLE SOD 20 MG DELAYED RELEASE TAB PO SCH (09:21)
[2016-07-01] MEDS: LITHIUM CARBONATE 300 MG CAP PO SCH (09:21)
[2016-07-01] MEDS: IBUPROFEN 600 MG TAB PO PRN ×2 (09:21→21:30)
[2016-07-01] MEDS: INSULIN HUMAN NPH/R 70/30 1,000 UNITS/10 ML VIAL SQ SCH ×2 (09:42→18:06)
--- NOTE | 2016-07-01 13:08 | HHI.PR ---
Addendum to Inpatient Note Additional Information [facility] was insulted to see the patient Came to see the patient regarding pack pain, I came to see the patient, he is deaf, he use sign language which needs tender labor, per the staff, the tender labor comes twice a week, we requested to call us when Food Safety Manager is present. I placed an order for [place] for pain above 7, further workup awaiting to have the tender labor for the consult Nathalie Pride MD Jul 01, 2016 13:08
--- NOTE | 2016-07-01 15:23 | HHI.PYPN ---
Subjective Remarks Patient seen and examined with counselor and computer-based rail signal designer. Chart reviewed. Case discussed with nursing staff. On my examination today, patient is tolerating psychotropics well. He does not voice any psychiatric symptomatology but I suspect his delusions about having family in [place] continue unabated. He does complain of some low back pain and I see that the hospitalist has ordered the patient some pain medication. No other issues noted. I did place a call to patient's sister this morning to inform her that the patient is not on the docket for court this week but that I would informally discussed having the patient's case heard sooner than the 4 weeks that it had been continued with the accounting representative. Review of Systems Other Complains of some ongoing LBP. Otherwise, no physical complaints. Objective Alert: Yes [place]: Person, Place Mood: Calm Affect: Blunted Memory Intact: Comment (Not formally assessed today.) Hallucinations: Other (None) Delusions: Yes Delusion Type: Other (None voiced but suspect ongoing delusions of family in [place]) Suicidal: Ideation (no SI) Homicidal: Ideation (no HI) Insight/Judgement Poor Remarks No abnormal motor movements noted. Patient does not appear to be in any acute distress. Steady gait and station. Labs Labs reviewed. No new labs. Vitals/IOs Vital Signs Date Time Temp Pulse Resp B/P Pulse Ox O2 Delivery O2 Flow Rate FiO2 07/01/16 05:44 97.4 68 18 126/89 98 Assessment & Plan Problem List: (1) Schizoaffective disorder, bipolar type ICD Code: F25.0 Assessment & Plan Continue Haldol as ordered. Plan to gently titrate this medication to target delusions. Continue other psychotropics as ordered. Continue other medications and care as ordered. Justification for Cont. Inpt. Risk for decompensation. [facility] Request HC Surrog/Guard Advoc?: Yes Chetan Cuellar MD Jul 01, 2016 15:23
[2016-07-01] MEDS: BENZOCAINE 7.5% ORAL GEL 9.4 GM TUBE OROPHARYNG PRN (16:26)
[2016-07-01 19:28] VITALS: BP 105/57; PULSE 62; RESP 19; TEMP 98.7; O2SAT 96
[2016-07-01] MEDS: LITHIUM CARBONATE 300 MG TAB PO SCH (20:48)
[2016-07-01] MEDS: DIVALPROEX DR 500 MG TABEC PO SCH (20:48)
[2016-07-01] MEDS: MELATONIN 5 MG TAB PO SCH (21:00)
[2016-07-02] MEDS: ACETAMINOPHEN/HYDROcodone 325 MG/5 MG TAB PO PRN ×3 (04:03→20:17)
[2016-07-02 05:00] VITALS: BP 117/64; PULSE 65; RESP 17; TEMP 97.5; O2SAT 96
[2016-07-02] MEDS: INSULIN ASPART SUPPLEMENTAL SCALE SQ SCH ×4 (06:48→21:00)
[2016-07-02] MEDS: INSULIN HUMAN NPH/R 70/30 1,000 UNITS/10 ML VIAL SQ SCH ×2 (08:00→17:00)
[2016-07-02] MEDS: metFORMIN HCL 500 MG TAB PO SCH ×2 (09:39→20:15)
[2016-07-02] MEDS: ESCITALOPRAM OXALATE 20 MG TAB PO SCH (09:40)
[2016-07-02] MEDS: LITHIUM CARBONATE 300 MG CAP PO SCH (09:40)
[2016-07-02] MEDS: PANTOPRAZOLE SOD 20 MG DELAYED RELEASE TAB PO SCH (09:40)
[2016-07-02] MEDS: ENALAPRIL MALEATE 10 MG TAB PO SCH (09:40)
[2016-07-02] MEDS: HALOPERIDOL 2 MG TAB PO SCH ×2 (09:40→20:15)
[2016-07-02] MEDS: BACITRACIN TOP OINT 15 GM TUBE TOP SCH (09:41)
[2016-07-02] MEDS: levOCARNitine 10% ORAL SOLN 118 ML BTL PO SCH ×3 (09:41→18:00)
--- NOTE | 2016-07-02 15:58 | HHI.PYPN ---
Subjective Remarks Patient seen and examined with counselor with the assistance of the computer based backup administrator. Chart reviewed. Case discussed with RN. Patient continues to complain of back pain, says the Motrin helps. He requests a back pillow, and I have d/w RN. He persists in his delusion about having family in [place] and hopes to return there. Denies side effects from meds. Review of Systems ROS Limitations: Poor Historian Other Low back pain. No other somatic complaints. Objective Alert: Yes [place]: Person, Place Mood: Calm Affect: Blunted (remains somewhat blunted.) Memory Intact: Comment (Seems at least fair on clinical exam.) Hallucinations: Other (None) Delusions: Yes Delusion Type: Other (Delusions of family in [place]) Suicidal: Ideation (no SI) Homicidal: Ideation (no HI) Insight/Judgement Poor Remarks No abnormal motor movements noted. Steady gait and station. Labs Labs reviewed. No new labs. Vitals/IOs Vital Signs Date Time Temp Pulse Resp B/P Pulse Ox O2 Delivery O2 Flow Rate FiO2 07/02/16 05:00 97.5 65 17 117/64 96 Assessment & Plan Problem List: (1) Schizoaffective disorder, bipolar type ICD Code: F25.0 Assessment & Plan Gently titrate Haldol to target delusions. 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 I'll ask PT to evaluate pt as well. Continue other medications and care as ordered. Justification for Cont. Inpt. Risk for decompensation. Discharge Planning Placement vs. [facility]. Request HC Surrog/Guard Advoc?: Yes Chetan Cuellar MD Jul 02, 2016 15:58
--- NOTE | 2016-07-02 18:13 | HHI.PR ---
Subjective Remarks Reconsult for back pain- interviewed completed by Dr. Cisneros primarily through written notes as signing agent is not currently available. Also Follow-up diabetes mellitus. Patient reports he has left-sided lower back pain worse with rest or laying flat better with walking. Appears the patient has been intermittent for the 5 days. Does appear that the pain radiates down the left leg. Objective Vitals Vital Signs Date Time Temp Pulse Resp B/P Pulse Ox O2 Delivery O2 Flow Rate FiO2 07/02/16 05:00 97.5 65 17 117/64 96 07/01/16 19:28 98.7 62 19 105/57 96 Result Diagram: 06/29/16 0611 Objective Remarks GENERAL: This is a well-nourished, well-developed patient, in no acute distress SKIN: No rashes, ecchymoses or lesions. Cool and dry. HEAD: Atraumatic. Normocephalic. EYES: Pupils equal round and reactive. ENT: Nose without bleeding. Uvula midline. Airway patent. NECK: Trachea midline. No JVD or lymphadenopathy. CARDIOVASCULAR: Regular rate and rhythm without murmurs, gallops, or rubs. RESPIRATORY: Clear to auscultation. Breath sounds equal bilaterally. No wheezes , rales, or rhonchi. GASTROINTESTINAL: Abdomen soft, non-tender, nondistended. Bowel sounds active 4. MUSCULOSKELETAL: Extremities without clubbing, cyanosis, or edema. No joint tenderness, effusion, or edema noted. No calf tenderness. Negative Homans sign bilaterally. NEUROLOGICAL: Awake and alert. Patient is hearing impaired. Moves all extremities. Procedures Non- A/P Problem List: (1) Schizoaffective disorder, bipolar type ICD Code: F25.0 Status: Acute (2) DM (diabetes mellitus) ICD Code: E11.9 Status: Chronic (3) HTN (hypertension) ICD Code: I10 Status: Chronic (4) Aggressive behavior ICD Code: R45.89 Status: Acute (5) Schizoaffective disorder ICD Code: F25.9 Status: Acute Assessment and Plan Patient is 55-year-old male with a PMH of Anxiety, Depression, Bipolar Disorder , Schizoaffective Disorder, HTN and DM who was sent to Hospital from [facility]/ [facility] under [place] [facility] for aggressive behavior towards staff. Now admitted to inpatient psychiatry unit. Consulted for medical management. Reconsulted for back pain Schizoaffective Disorder/ Anxiety/ depression/ Bipolar Disorder/ aggressive behavior - managed by psychiatry team HTN - Continue home meds Enalapril and Norvasc. PRN clonidine - Monitor BP trend DM2 - Continue NovoLog Mix 70/30 14units am and 13units pm. Continue home metformin 1000 mg twice daily. - Continue diabetic diet. Sliding scale w/ Accu-Cheks. Back pain Lumbar x-rays [place] as needed for pain Physical therapy DVT prop patient ambulatory discussed with patient and RN Written by Lia Abraham, acting as scribe for Dr. Cisneros on 2016 17:30. Attending Statement The documentation accurately reflects the work performed [id number] by me on 17:30. Lia Abraham Jul 02, 2016 18:13 Prateek Adams MD Jul 19, 2016 20:12
[2016-07-02 18:43] VITALS: BP 128/70; PULSE 69; RESP 18; TEMP 97.8; O2SAT 99
[2016-07-02] MEDS: LITHIUM CARBONATE 300 MG TAB PO SCH (20:14)
[2016-07-02] MEDS: DIVALPROEX DR 500 MG TABEC PO SCH (20:15)
[2016-07-02] MEDS: MELATONIN 5 MG TAB PO SCH (20:15)
[2016-07-02] MEDS ORDERED: PILL SPLITTER OTHER PRN (21:00)
[2016-07-02] MEDS: REMOVE OLD PATCH T-DERMAL SCH (21:00)
--- NOTE | 2016-07-02 23:33 | RADRPT ---
EXAM DATE/TIME: 07/02/2016 23:13 [place] COMPARISON: No previous studies available for comparison. INDICATIONS : Back pain. MEDICAL HISTORY : None. SURGICAL HISTORY : None. ENCOUNTER: Initial ACUITY: 1 day PAIN SCORE: Non-responsive. LOCATION: lumbar FINDINGS: Moderate scoliotic deformity is present to the right with a rotatory component with the apex at L2-L3 . The vertebral bodies are normal in alignment on the lateral view. No spondylolysis or spondylolisth esis is present. There is multilevel facet arthritis maximal at L5-S1. There is no evidence of acute fracture. Bony mineralization is normal. CONCLUSION: 1. Moderate degenerative changes as described above. There is no evidence of acute fracture. Chetan Arias MD on July 02, 2016 at 23:30 Board Certified Radiologist. This report was verified electronically.
[2016-07-03] MEDS: IBUPROFEN 600 MG TAB PO PRN ×2 (02:58→17:33)
[2016-07-03 06:27] VITALS: BP 136/70; PULSE 67; RESP 18; TEMP 97; O2SAT 96
[2016-07-03] MEDS: INSULIN ASPART SUPPLEMENTAL SCALE SQ SCH ×4 (07:00→20:24)
[2016-07-03] MEDS: PANTOPRAZOLE SOD 20 MG DELAYED RELEASE TAB PO SCH (08:41)
[2016-07-03] MEDS: LITHIUM CARBONATE 300 MG CAP PO SCH (08:42)
[2016-07-03] MEDS: ACETAMINOPHEN/HYDROcodone 325 MG/5 MG TAB PO PRN (08:42)
[2016-07-03] MEDS: HALOPERIDOL 2 MG TAB PO SCH ×2 (08:43→20:21)
[2016-07-03] MEDS: BACITRACIN TOP OINT 15 GM TUBE TOP SCH (08:43)
[2016-07-03] MEDS: LIDOCAINE HCL 5% PATCH TD SCH (08:43)
[2016-07-03] MEDS: ESCITALOPRAM OXALATE 20 MG TAB PO SCH (08:43)
[2016-07-03] MEDS: metFORMIN HCL 500 MG TAB PO SCH ×2 (08:43→20:22)
[2016-07-03] MEDS: levOCARNitine 10% ORAL SOLN 118 ML BTL PO SCH ×3 (08:43→17:34)
[2016-07-03] MEDS: ENALAPRIL MALEATE 10 MG TAB PO SCH (08:44)
--- NOTE | 2016-07-03 12:27 | HHI.PR ---
Blank section for building Patient is 55-year-old male with a PMH of Anxiety, Depression, Bipolar Disorder , Schizoaffective Disorder, HTN and DM who was sent to Hospital from [facility]/ [facility] under [employer] Act for aggressive behavior towards staff. Now admitted to inpatient psychiatry unit. Consulted for medical management. Reconsulted for back pain Schizoaffective Disorder/ Anxiety/ depression/ Bipolar Disorder/ aggressive behavior - managed by psychiatry team HTN - Continue home meds Enalapril and Norvasc. PRN clonidine - Monitor BP trend DM2 - Continue NovoLog Mix 70/30 14units am and 13units pm. Continue home metformin 1000 mg twice daily. - Continue diabetic diet. Sliding scale w/ Accu-Cheks. Back pain Lumbar x-rays reviewed by myself as well as Dr. Cisneros- moderate degenerative changes no evidence of acute fracture Continue [place] as needed for pain Physical therapy DVT prop patient ambulatory patient appears medically stable we'll sign off if patient's condition changes or further assistance is needed please reconsult. Written by Lia Abraham, acting as scribe for Dr. Cisneros on 07/03/16 at 12:27. Lia Abraham Jul 03, 2016 12:27
--- NOTE | 2016-07-03 15:28 | HHI.PYPN ---
Subjective Remarks Pt seen and examined with counselor, Laura, and in-person sign-language instructor. Chart reviewed. Case d/w RN. On my exam today, patient is in fair spirits. Says he worked with PT and has learned some exercises for his back. Back pain is a little better. I discuss concerns re: lithium and NSAID use. Denies side effects from medications. Still wants to go to [place] to satisfy delusion of having family there. Review of Systems ROS Limitations: Poor Historian Other LBP as before. Otherwise, no somatic complaints. Objective Alert: Yes [place]: Person, Place Mood: Calm Affect: Blunted Memory Intact: Comment (Fair) Hallucinations: Other (No AVH) Delusions: Yes Delusion Type: Other (Delusions of family in [place]) Suicidal: Ideation (no SI) Homicidal: Ideation (no HI) Insight/Judgement Poor Remarks No motoric abnormalities noted. Labs Labs reviewed. Last 48 hours Impressions Lumbar Spine X-Ray 07/02/16 0000 Signed Impressions: Service Date/Time: June 23:13 - CONCLUSION: 1. Moderate degenerative changes as described above. There is no evidence of acute fracture. Chetan Arias MD Vitals/IOs Vital Signs Date Time Temp Pulse Resp B/P Pulse Ox O2 Delivery O2 Flow Rate FiO2 07/03/16 06:27 97.0 67 18 136/70 96 Assessment & Plan Problem List: (1) Schizoaffective disorder, bipolar type ICD Code: F25.0 Assessment & Plan Continue current psychotropics as ordered. Continue other medications and care as ordered. Appreciate hospitalist and PT input. Justification for Cont. Inpt. Risk for decompensation. [facility] Request HC Surrog/Guard Advoc?: Yes Chetan Cuellar MD Jul 03, 2016 15:28
[2016-07-03 19:15] VITALS: BP 143/69; PULSE 76; RESP 18; TEMP 97.3; O2SAT 96
[2016-07-03] MEDS: MELATONIN 5 MG TAB PO SCH (20:21)
[2016-07-03] MEDS: DIVALPROEX DR 500 MG TABEC PO SCH (20:22)
[2016-07-03] MEDS: LITHIUM CARBONATE 300 MG TAB PO SCH (20:22)
[2016-07-03] MEDS: REMOVE OLD PATCH T-DERMAL SCH (20:37)
[2016-07-04 05:53] VITALS: BP 122/54; PULSE 66; RESP 18; TEMP 97.7; O2SAT 96
[2016-07-04] MEDS: INSULIN ASPART SUPPLEMENTAL SCALE SQ SCH ×4 (06:23→20:49)
[2016-07-04] MEDS: levOCARNitine 10% ORAL SOLN 118 ML BTL PO SCH ×3 (08:40→17:33)
[2016-07-04] MEDS: ESCITALOPRAM OXALATE 20 MG TAB PO SCH (08:41)
[2016-07-04] MEDS: metFORMIN HCL 500 MG TAB PO SCH ×2 (08:41→21:09)
[2016-07-04] MEDS: BACITRACIN TOP OINT 15 GM TUBE TOP SCH (08:41)
[2016-07-04] MEDS: LIDOCAINE HCL 5% PATCH TD SCH (08:41)
[2016-07-04] MEDS: LITHIUM CARBONATE 300 MG CAP PO SCH (08:42)
[2016-07-04] MEDS: PANTOPRAZOLE SOD 20 MG DELAYED RELEASE TAB PO SCH (08:43)
[2016-07-04] MEDS: ENALAPRIL MALEATE 10 MG TAB PO SCH (08:43)
[2016-07-04] MEDS: ACETAMINOPHEN/HYDROcodone 325 MG/5 MG TAB PO PRN ×2 (08:45→20:21)
[2016-07-04] MEDS: HALOPERIDOL 2 MG TAB PO SCH ×2 (08:49→21:09)
[2016-07-04] MEDS: IBUPROFEN 600 MG TAB PO PRN (09:11)
--- NOTE | 2016-07-04 16:59 | HHI.PYPN ---
Subjective Remarks Patient was seen and case discussed with nursing. No master scheduler was present and interview was done via writing. Patient denies suicidal ideation intent or plan. Patient denies auditory or visual hallucinations. Compliant with medications. Is in behaving well on the unit. Objective Alert: Yes [place]: Person, Place Mood: Calm Affect: Blunted Memory Intact: Comment (Fair) Hallucinations: Other (No AVH) Delusions: Yes Delusion Type: Other (Delusions of family in [place]) Suicidal: Ideation (no SI) Homicidal: Ideation (no HI) Insight/Judgement Fair Vitals/IOs Vital Signs Date Time Temp Pulse Resp B/P Pulse Ox O2 Delivery O2 Flow Rate FiO2 07/04/16 05:53 97.7 66 18 122/54 96 Assessment & Plan Problem List: (1) Schizoaffective disorder, bipolar type ICD Code: F25.0 Assessment & Plan Continue current treatment plan Justification for Cont. Inpt. Patient was decompensating a less restrictive setting Request HC Surrog/Guard Advoc?: Yes London Fontaine DO Jul 04, 2016 16:59
[2016-07-04 18:34] VITALS: BP 95/49; PULSE 60; RESP 18; TEMP 97.1; O2SAT 95
[2016-07-04] MEDS: MELATONIN 5 MG TAB PO SCH (20:48)
[2016-07-04] MEDS: REMOVE OLD PATCH T-DERMAL SCH (21:00)
[2016-07-04] MEDS: DIVALPROEX DR 500 MG TABEC PO SCH (21:08)
[2016-07-04] MEDS: LITHIUM CARBONATE 300 MG TAB PO SCH (21:09)
[2016-07-05] MEDS: ACETAMINOPHEN/HYDROcodone 325 MG/5 MG TAB PO PRN ×2 (02:00→20:03)
[2016-07-05] MEDS: INSULIN ASPART SUPPLEMENTAL SCALE SQ SCH ×4 (06:30→21:00)
[2016-07-05 06:45] VITALS: BP 121/69; PULSE 100; RESP 18; TEMP 98.2
[2016-07-05] MEDS: BACITRACIN TOP OINT 15 GM TUBE TOP SCH (09:00)
[2016-07-05] MEDS: ENALAPRIL MALEATE 10 MG TAB PO SCH (09:34)
[2016-07-05] MEDS: ESCITALOPRAM OXALATE 20 MG TAB PO SCH (09:34)
[2016-07-05] MEDS: PANTOPRAZOLE SOD 20 MG DELAYED RELEASE TAB PO SCH (09:35)
[2016-07-05] MEDS: LITHIUM CARBONATE 300 MG CAP PO SCH (09:36)
[2016-07-05] MEDS: metFORMIN HCL 500 MG TAB PO SCH ×2 (09:36→21:00)
[2016-07-05] MEDS: levOCARNitine 10% ORAL SOLN 118 ML BTL PO SCH ×3 (09:36→17:32)
[2016-07-05] MEDS: HALOPERIDOL 2 MG TAB PO SCH ×2 (09:37→21:28)
[2016-07-05] MEDS: LIDOCAINE HCL 5% PATCH TD SCH (09:41)
--- NOTE | 2016-07-05 16:38 | HHI.PYPN ---
Subjective Remarks Patient was seen and case discussed with nursing. 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 Patient is pleasant and cooperative with exam. Denies suicidal ideations thought or plan. No psychosis. Behaving well on the unit Objective Alert: Yes [place]: Person, Place Mood: Calm Affect: Blunted Memory Intact: Comment (Fair) Hallucinations: Other (No AVH) Delusions: Yes Delusion Type: Other (Delusions of family in [place]) Suicidal: Ideation (no SI) Homicidal: Ideation (no HI) Insight/Judgement Poor Vitals/IOs Vital Signs Date Time Temp Pulse Resp B/P Pulse Ox O2 Delivery O2 Flow Rate FiO2 07/05/16 06:45 98.2 100 18 121/69 07/04/16 18:34 95 Assessment & Plan Problem List: (1) Schizoaffective disorder, bipolar type ICD Code: F25.0 Assessment & Plan Continue current treatment plan Justification for Cont. Inpt. Patient will decompensate in a less restrictive setting Request HC Surrog/Guard Advoc?: Yes London Fontaine DO Jul 05, 2016 16:38
[2016-07-05] MEDS: IBUPROFEN 600 MG TAB PO PRN (17:33)
[2016-07-05 20:36] VITALS: BP 137/69; PULSE 73; RESP 18; TEMP 98.4; O2SAT 97
[2016-07-05] MEDS: DIVALPROEX DR 500 MG TABEC PO SCH (21:00)
[2016-07-05] MEDS: REMOVE OLD PATCH T-DERMAL SCH (21:00)
[2016-07-05] MEDS: LITHIUM CARBONATE 300 MG TAB PO SCH (21:00)
[2016-07-05] MEDS: MELATONIN 5 MG TAB PO SCH (21:27)
[2016-07-05] MEDS: diphenhydrAMINE HCL 50 MG CAP - HS PRN PO (21:28)
[2016-07-06] MEDS: ACETAMINOPHEN/HYDROcodone 325 MG/5 MG TAB PO PRN ×2 (01:37→06:40)
[2016-07-06 06:22] VITALS: BP 130/72; PULSE 86; RESP 16; TEMP 97.9; O2SAT 96
[2016-07-06] MEDS: INSULIN ASPART SUPPLEMENTAL SCALE SQ SCH ×4 (06:31→20:23)
[2016-07-06] MEDS: LORazepam 1 MG TAB PO PRN (06:43)
[2016-07-06] MEDS: ESCITALOPRAM OXALATE 20 MG TAB PO SCH (08:42)
[2016-07-06] MEDS: HALOPERIDOL 2 MG TAB PO SCH ×2 (08:43→20:23)
[2016-07-06] MEDS: PANTOPRAZOLE SOD 20 MG DELAYED RELEASE TAB PO SCH (08:43)
[2016-07-06] MEDS: LITHIUM CARBONATE 300 MG CAP PO SCH (08:44)
[2016-07-06] MEDS: metFORMIN HCL 500 MG TAB PO SCH ×2 (08:44→20:23)
[2016-07-06] MEDS: ENALAPRIL MALEATE 10 MG TAB PO SCH (08:44)
[2016-07-06] MEDS: LIDOCAINE HCL 5% PATCH TD SCH (08:45)
[2016-07-06] MEDS: BACITRACIN TOP OINT 15 GM TUBE TOP SCH (09:00)
[2016-07-06] MEDS: levOCARNitine 10% ORAL SOLN 118 ML BTL PO SCH ×3 (09:46→17:46)
--- NOTE | 2016-07-06 10:57 | HHI.PYPN ---
Subjective Remarks Patient seen and examined with counselor and staff design engineer. Chart reviewed. Case discussed with nursing staff who reports concern from nursing that the patient is perhaps growing somewhat depressed. I asked the patient about this today and he denies any low mood or associated symptoms of depression. He says that he is growing a little bit frustrated with the extended hospital stay. He denies any AVH. Denies any side effects from medications. Review of Systems ROS Limitations: Poor Historian Other Continues to complain of a little bit a low back pain but otherwise no physical complaints Objective Alert: Yes [place]: Person, Place Mood: Calm (not depressed) Affect: Blunted Memory Intact: Comment (Fair) Hallucinations: Other (denies AVH) Delusions: Yes Delusion Type: Other (as previous) Suicidal: Ideation (no SI) Homicidal: Ideation (no HI) Insight/Judgement Poor Remarks No motoric abnormalities noted Labs Labs reviewed Vitals/IOs Vital Signs Date Time Temp Pulse Resp B/P Pulse Ox O2 Delivery O2 Flow Rate FiO2 07/06/16 06:22 97.9 86 16 130/72 96 Assessment & Plan Problem List: (1) Schizoaffective disorder, bipolar type ICD Code: F25.0 Assessment & Plan Continue current psychotropics as ordered. Continue other medications and care as ordered. Justification for Cont. Inpt. Risk for decompensation Discharge Planning [facility] Request HC Surrog/Guard Advoc?: Yes Chetan Cuellar MD Jul 06, 2016 10:57
[2016-07-06 20:00] VITALS: BP 129/67; PULSE 71; RESP 18; TEMP 99.3
[2016-07-06] MEDS: LITHIUM CARBONATE 300 MG TAB PO SCH (20:24)
[2016-07-06] MEDS: MELATONIN 5 MG TAB PO SCH (20:24)
[2016-07-06] MEDS: DIVALPROEX DR 500 MG TABEC PO SCH (20:24)
[2016-07-06] MEDS: REMOVE OLD PATCH T-DERMAL SCH (20:24)
[2016-07-06] MEDS: diphenhydrAMINE HCL 50 MG CAP - HS PRN PO (20:24)
[2016-07-07 05:37] VITALS: BP 157/75; PULSE 67; RESP 18; TEMP 97.2; O2SAT 95
[2016-07-07] MEDS: INSULIN ASPART SUPPLEMENTAL SCALE SQ SCH ×4 (05:50→20:55)
[2016-07-07] MEDS: ENALAPRIL MALEATE 10 MG TAB PO SCH (09:15)
[2016-07-07] MEDS: metFORMIN HCL 500 MG TAB PO SCH ×2 (09:15→20:53)
[2016-07-07] MEDS: HALOPERIDOL 2 MG TAB PO SCH ×2 (09:16→20:53)
[2016-07-07] MEDS: PANTOPRAZOLE SOD 20 MG DELAYED RELEASE TAB PO SCH (09:16)
[2016-07-07] MEDS: LITHIUM CARBONATE 300 MG CAP PO SCH (09:17)
[2016-07-07] MEDS: ESCITALOPRAM OXALATE 20 MG TAB PO SCH (09:17)
[2016-07-07] MEDS: LIDOCAINE HCL 5% PATCH TD SCH (09:18)
[2016-07-07] MEDS: levOCARNitine 10% ORAL SOLN 118 ML BTL PO SCH ×3 (09:18→17:13)
[2016-07-07] MEDS: BACITRACIN TOP OINT 15 GM TUBE TOP SCH (09:19)
[2016-07-07] MEDS: IBUPROFEN 600 MG TAB PO PRN (10:15)
--- NOTE | 2016-07-07 10:26 | HHI.PYPN ---
Subjective Remarks Patient seen and examined with counselor, nursing staff and design project manager. Chart reviewed. Case discussed in treatment team. Nursing staff feels that the patient is in better spirits than he was over the weekend. Patient indeed seems brighter today in terms of his affect. He is less perseverative on going to [place] and says that he might impact stay in [place] for a while and later on down the road go to [place]. He says he plans to have a visit with his sister tomorrow night and is looking forward to going to court on and hopes that he will be released. Denies side effects from medications. Review of Systems ROS Limitations: Poor Historian Other Some low back pain otherwise no physical complaints. Objective Alert: Yes [place]: Person, Place Mood: Calm Affect: Euthymic Memory Intact: Comment (Fair) Hallucinations: Other (denies AVH) Delusions: Yes Delusion Type: Other (family in [place], seems less pressing today) Suicidal: Ideation (no SI) Homicidal: Ideation (no HI) Insight/Judgement Poor Remarks Thought process fairly linear. Labs Labs reviewed. No new labs. Vitals/IOs Vital Signs Date Time Temp Pulse Resp B/P Pulse Ox O2 Delivery O2 Flow Rate FiO2 07/07/16 05:37 97.2 67 18 157/75 95 Assessment & Plan Problem List: (1) Schizoaffective disorder, bipolar type ICD Code: F25.0 Assessment & Plan Continue current psychotropics as ordered. Continue other medications include care as ordered. Justification for Cont. Inpt. Risk for decompensation Discharge Planning Placement versus state psychiatric hospitalization Request HC Surrog/Guard Advoc?: Yes Chetan Cuellar MD Jul 07, 2016 10:26
[2016-07-07] MEDS: LITHIUM CARBONATE 300 MG TAB PO SCH (20:53)
[2016-07-07] MEDS: MELATONIN 5 MG TAB PO SCH (20:53)
[2016-07-07] MEDS: DIVALPROEX DR 500 MG TABEC PO SCH (20:53)
[2016-07-07 21:00] VITALS: BP 129/60; PULSE 62; RESP 18; TEMP 97.6; O2SAT 94
[2016-07-07] MEDS: REMOVE OLD PATCH T-DERMAL SCH (21:00)
[2016-07-08 05:56] VITALS: BP 136/67; PULSE 18; RESP 18; TEMP 97.7; O2SAT 94
[2016-07-08] MEDS: INSULIN ASPART SUPPLEMENTAL SCALE SQ SCH ×4 (06:33→22:03)
[2016-07-08 06:45] VITALS: PULSE 70
[2016-07-08] MEDS: levOCARNitine 10% ORAL SOLN 118 ML BTL PO SCH ×3 (08:34→17:30)
[2016-07-08] MEDS: ESCITALOPRAM OXALATE 20 MG TAB PO SCH (08:34)
[2016-07-08] MEDS: metFORMIN HCL 500 MG TAB PO SCH ×2 (08:35→22:04)
[2016-07-08] MEDS: PANTOPRAZOLE SOD 20 MG DELAYED RELEASE TAB PO SCH (08:35)
[2016-07-08] MEDS: HALOPERIDOL 2 MG TAB PO SCH ×2 (08:35→22:05)
[2016-07-08] MEDS: LITHIUM CARBONATE 300 MG CAP PO SCH (08:35)
[2016-07-08] MEDS: ENALAPRIL MALEATE 10 MG TAB PO SCH (08:35)
[2016-07-08] MEDS: ACETAMINOPHEN/HYDROcodone 325 MG/5 MG TAB PO PRN (08:39)
[2016-07-08] MEDS: BACITRACIN TOP OINT 15 GM TUBE TOP SCH (09:00)
--- NOTE | 2016-07-08 10:20 | HHI.PYPN ---
Subjective Remarks Patient seen and examined with counselor in design agent. Chart reviewed. Case discussed with nursing staff. Per nursing staff, patient remains in good spirits and this is how I find him today on my evaluation. He is hopeful for getting some clarity at [place] [address] hearing scheduled for tomorrow. Tolerating meds well without side effects. No SI/HI. Review of Systems ROS Limitations: Poor Historian Other Complains of some L shoulder pain. No other physical complaints. Objective Alert: Yes [place]: Person, Place Mood: Calm Affect: Euthymic (remains euthymic) Memory Intact: Comment (Fair) Hallucinations: Other (denies AVH) Delusions: No Delusion Type: Other (Does not voice any delusional material today.) Suicidal: Ideation (no SI) Homicidal: Ideation (no HI) Insight/Judgement Poor Remarks No motoric abnormalities noted. Labs Labs reviewed. No new labs. Vitals/IOs Vital Signs Date Time Temp Pulse Resp B/P Pulse Ox O2 Delivery O2 Flow Rate FiO2 07/08/16 05:56 97.7 136/67 94 Assessment & Plan Problem List: (1) Schizoaffective disorder, bipolar type ICD Code: F25.0 Assessment & Plan Continue current psychotropics as ordered. Continue other medications and care as ordered. Justification for Cont. Inpt. Risk for decompensation. Discharge Planning [place] [address] tomorrow. Request HC Surrog/Guard Advoc?: Yes Chetan Cuellar MD Jul 08, 2016 10:20
[2016-07-08] MEDS: LIDOCAINE HCL 5% PATCH TD SCH (11:07)
[2016-07-08 20:05] VITALS: BP 132/63; PULSE 71; RESP 18; TEMP 98.3; O2SAT 99
[2016-07-08] MEDS: LORazepam 1 MG TAB PO PRN (20:12)
[2016-07-08] MEDS: REMOVE OLD PATCH T-DERMAL SCH (21:00)
[2016-07-08] MEDS: DIVALPROEX DR 500 MG TABEC PO SCH (22:04)
[2016-07-08] MEDS: LITHIUM CARBONATE 300 MG TAB PO SCH (22:06)
[2016-07-08] MEDS: MELATONIN 5 MG TAB PO SCH (22:06)
[2016-07-09] MEDS: ACETAMINOPHEN/HYDROcodone 325 MG/5 MG TAB PO PRN ×2 (00:12→06:05)
[2016-07-09 05:53] VITALS: BP 113/58; PULSE 70; RESP 18; TEMP 97.9; O2SAT 97
[2016-07-09] MEDS: hydrOXYzine HCL 50 MG TAB PO PRN (06:20)
[2016-07-09] MEDS: INSULIN ASPART SUPPLEMENTAL SCALE SQ SCH ×4 (06:20→21:00)
[2016-07-09] MEDS ORDERED: INFLUENZA VIRUS VACCINE (QUADRIVALENT) 0.5 ML SYR IM ONE (10:00)
[2016-07-09] MEDS: LIDOCAINE HCL 5% PATCH TD SCH (10:19)
[2016-07-09] MEDS: LITHIUM CARBONATE 300 MG CAP PO SCH (10:20)
[2016-07-09] MEDS: metFORMIN HCL 500 MG TAB PO SCH ×2 (10:20→20:59)
[2016-07-09] MEDS: ENALAPRIL MALEATE 10 MG TAB PO SCH (10:20)
[2016-07-09] MEDS: PANTOPRAZOLE SOD 20 MG DELAYED RELEASE TAB PO SCH (10:21)
[2016-07-09] MEDS: HALOPERIDOL 2 MG TAB PO SCH ×2 (10:21→21:00)
[2016-07-09] MEDS: ESCITALOPRAM OXALATE 20 MG TAB PO SCH (10:21)
[2016-07-09] MEDS: BACITRACIN TOP OINT 15 GM TUBE TOP SCH (10:22)
[2016-07-09] MEDS: levOCARNitine 10% ORAL SOLN 118 ML BTL PO SCH ×3 (10:22→18:00)
[2016-07-09] MEDS: IBUPROFEN 600 MG TAB PO PRN (10:25)
--- NOTE | 2016-07-09 12:19 | HHI.PYPN ---
Subjective Remarks Patient seen and case discussed with nursing staff. On my examination today, patient seems to say that he wants to spend while in [place] and eventually get an apartment and take his medications. Patient's case was presented to the [place] act cord and the patient was retained by the court. No evident side effects from medications. Review of Systems Other No physical complaints voiced Objective Alert: Yes [place]: Person, Place Mood: Calm Affect: Blunted Memory Intact: Comment (not formally assessed today) Hallucinations: Other (none) Delusions: No Delusion Type: Other (no caridad delusional material today) Suicidal: Ideation (no SI) Homicidal: Ideation (no HI) Insight/Judgement Poor Remarks No motoric abnormalities noted Labs Labs reviewed. No new labs. Vitals/IOs Vital Signs Date Time Temp Pulse Resp B/P Pulse Ox O2 Delivery O2 Flow Rate FiO2 07/09/16 05:53 97.9 70 18 113/58 97 Assessment & Plan Problem List: (1) Schizoaffective disorder, bipolar type ICD Code: F25.0 Assessment & Plan Continue current psychotropics as ordered. I will check an updated set of basic laboratories. Continue other medications and care as ordered. Justification for Cont. Inpt. Risk for decompensation [facility] Request HC Surrog/Guard Advoc?: Yes Chetan Cuellar MD Jul 09, 2016 12:19
--- NOTE | 2016-07-09 15:52 | HHI.PR ---
Subjective Remarks f/u shoulder pain history done with Chris sign-educational sign language interpreter Patient has been complaining of right shoulder pain which has been going on for about 1-3 months now, ascribed as 8/10, worse with movement, not associated with any numbness of the right lower extremity, sometimes radiates to the right upper back. No history of fall. He is also complaining of worsening of left lower back pain, no urinary incontinence or lower extremity weakness. Patient has any chest pain or shortness of breath. Objective Vitals Vital Signs Date Time Temp Pulse Resp B/P Pulse Ox O2 Delivery O2 Flow Rate FiO2 07/09/16 05:53 97.9 70 18 113/58 97 07/08/16 20:05 98.3 71 18 132/63 99 Objective Remarks GENERAL: This is a well-nourished, well-developed patient, in no acute distress SKIN: No rashes, ecchymoses or lesions. Cool and dry. HEAD: Atraumatic. Normocephalic. EYES: Pupils equal round and reactive. ENT: Patient is deaf NECK: Trachea midline. CARDIOVASCULAR: Regular rate and rhythm without murmurs, gallops, or rubs. RESPIRATORY: Clear to auscultation. Breath sounds equal bilaterally. No wheezes , rales, or rhonchi. GASTROINTESTINAL: Abdomen soft, non-tender, nondistended. Bowel sounds active 4. MUSCULOSKELETAL: Extremities without clubbing, cyanosis, or edema. Right shoulder positive for crepitus, decreased range of motion especially with abduction and posterior flexion. Mild tenderness on palpation. Lower back pain , no point tenderness, NEUROLOGICAL: Awake and alert. Follows commands, moves extremities. Hearing impaired. Strength testing bilateral upper and lower extremities are normal. Procedures Non- A/P Problem List: (1) Schizoaffective disorder, bipolar type ICD Code: F25.0 Status: Acute (2) DM (diabetes mellitus) ICD Code: E11.9 Status: Chronic (3) HTN (hypertension) ICD Code: I10 Status: Chronic (4) Aggressive behavior ICD Code: R45.89 Status: Acute (5) Schizoaffective disorder ICD Code: F25.9 Status: Acute Assessment and Plan Patient is 55-year-old male with a PMH of Anxiety, Depression, Bipolar Disorder , Schizoaffective Disorder, HTN and DM who was sent to Hospital from [facility] under [place] for aggressive behavior towards staff. Now admitted to inpatient psychiatry unit. Consulted for medical management. Reconsulted for back pain Schizoaffective Disorder/ Anxiety/ depression/ Bipolar Disorder/ aggressive behavior - managed by psychiatry team HTN - Continue home meds Enalapril and Norvasc. PRN clonidine - Monitor BP trend DM2 - Continue NovoLog Mix 70/30 14units am and 13units pm. Continue home metformin 1000 mg twice daily. - Continue diabetic diet. Sliding scale w/ Accu-Cheks. Back pain-free summer x-ray negative, [place] for pain. Right shoulder pain-likely frozen shoulder versus osteoarthritis, continue [place] for pain, check right shoulder x-ray. No history of trauma. DVT prop patient ambulatory Esperanza Pickett MD Jul 09, 2016 15:51
[2016-07-09 18:49] VITALS: BP 130/61; PULSE 81; RESP 17; TEMP 98.1; O2SAT 99
[2016-07-09] MEDS: LITHIUM CARBONATE 300 MG TAB PO SCH (20:59)
[2016-07-09] MEDS: REMOVE OLD PATCH T-DERMAL SCH (21:00)
[2016-07-09] MEDS: MELATONIN 5 MG TAB PO SCH (21:00)
[2016-07-09] MEDS: DIVALPROEX DR 500 MG TABEC PO SCH (21:01)
--- NOTE | 2016-07-09 21:21 | RADRPT ---
EXAM DATE/TIME: 07/09/2016 20:49 [place] COMPARISON: No previous studies available for comparison. INDICATIONS : Right shoulder pain. MEDICAL HISTORY : None. SURGICAL HISTORY : None. ENCOUNTER: Initial ACUITY: 1 day PAIN SCORE: 5/10 LOCATION: Right shoulder FINDINGS: Multiple view examination of the right shoulder demonstrates no evidence of fracture or dislocation. The glenohumeral and acromioclavicular joints are maintained. There is normal range of motion betwe en internal and external rotation. Bony mineralization is normal. CONCLUSION: Right shoulder radiographic appearance within normal limits. Sumanth Villegas MD on July 09, 2016 at 21:18 Board Certified Radiologist. This report was verified electronically.
[2016-07-10 05:41] VITALS: BP 126/63; PULSE 85; RESP 18; TEMP 98.4; O2SAT 95
[2016-07-10] MEDS: INSULIN ASPART SUPPLEMENTAL SCALE SQ SCH ×5 (06:11→22:42)
[2016-07-10 07:54] LABS: AUTOMATED NEUTROPHIL # 7.1 TH/MM3 (1.8-7.7); BASOPHIL # 0.1 TH/MM3 (0-0.2); BASOPHIL % 0.7 % (0.0-2.0); EOSINOPHIL # 0.6 TH/MM3 (0-0.4); EOSINOPHIL % 4.8 % (0.0-4.0); HEMATOCRIT 34.8 % (39.0-51.0); HEMO FLAGS DIFF FINAL; LYMPH % 28.6 % (9.0-44.0); LYMPHOCYTE # 3.7 TH/MM3 (1.0-4.8); MEAN CELL VOLUME 84.2 FL (80.0-100.0); MEAN CORPUSCULAR HEMOGLOBIN 27.1 PG (27.0-34.0); MEAN CORPUSCULAR HGB CONC 32.2 % (32.0-36.0); MONO % 10.3 % (0.0-8.0); NEUT % 55.6 % (16.0-70.0); PLATELET COUNT 201 TH/MM3 (150-450); RED BLOOD COUNT 4.13 MIL/MM3 (4.50-5.90); RED CELL DISTRIBUTION WIDTH 13.8 % (11.6-17.2); WHITE BLOOD COUNT 12.9 TH/MM3 (4.0-11.0)
[2016-07-10 08:07] LABS: ALKALINE PHOSPHATASE 91 U/L (45-117); ALT (GPT) 52 U/L (12-78); ANION GAP 9 MEQ/L (5-15); AST (GOT) 29 U/L (15-37); BICARBONATE 25.6 MEQ/L (21.0-32.0); BLOOD UREA NITROGEN 22 MG/DL (7-18); CHLORIDE 101 MEQ/L (98-107); GLOMERULAR FILTRATION RATE 62 ML/MIN (>89); POTASSIUM 4.3 MEQ/L (3.5-5.1); SODIUM (NA) 136 MEQ/L (136-145); TOTAL BILIRUBIN ADULT 0.3 MG/DL (0.2-1.0)
[2016-07-10] MEDS: BACITRACIN TOP OINT 15 GM TUBE TOP SCH (09:00)
[2016-07-10] MEDS: HALOPERIDOL 2 MG TAB PO SCH ×2 (09:00→21:04)
[2016-07-10] MEDS: PANTOPRAZOLE SOD 20 MG DELAYED RELEASE TAB PO SCH (09:00)
[2016-07-10] MEDS: levOCARNitine 10% ORAL SOLN 118 ML BTL PO SCH ×3 (09:00→18:00)
[2016-07-10] MEDS: LITHIUM CARBONATE 300 MG CAP PO SCH (09:15)
[2016-07-10] MEDS: ENALAPRIL MALEATE 10 MG TAB PO SCH (09:16)
[2016-07-10] MEDS: metFORMIN HCL 500 MG TAB PO SCH ×2 (09:16→21:04)
[2016-07-10] MEDS: ESCITALOPRAM OXALATE 20 MG TAB PO SCH (09:16)
[2016-07-10] MEDS: LIDOCAINE HCL 5% PATCH TD SCH (09:17)
[2016-07-10] MEDS: IBUPROFEN 600 MG TAB PO PRN ×3 (09:20→11:30)
--- NOTE | 2016-07-10 16:10 | HHI.PYPN ---
Subjective Remarks Patient seen and examined with counselor in senior design engineering specialist. Chart reviewed. Case discussed with nursing staff. On my examination today, the patient reports that he is fairly tired and not interested in an extended interview. He denies any physical distress or complaints besides his ongoing low back pain. Denies side effects from medications. Review of Systems Other Except as above, no physical complaints today. Objective Alert: Yes [place]: Person, Place (at least) Mood: Calm Affect: Blunted Memory Intact: Comment (not formally assessed today) Hallucinations: Other (no AVH) Delusions: No Delusion Type: Other (no evident delusional material) Suicidal: Ideation (no SI) Homicidal: Ideation (no HI) Insight/Judgement Poor Remarks No motoric abnormalities noted Labs Test 07/10/16 07/10/16 06:40 06:46 Sodium Level 136 MEQ/L Potassium Level 4.3 MEQ/L Chloride Level 101 MEQ/L Carbon Dioxide Level 25.6 MEQ/L Anion Gap 9 MEQ/L Blood Urea Nitrogen 22 MG/DL Creatinine 1.21 MG/DL Estimat Glomerular Filtration 62 ML/MIN Rate Random Glucose 124 MG/DL Calcium Level 9.1 MG/DL Total Bilirubin 0.3 MG/DL Aspartate Amino Transf 29 U/L (AST/SGOT) Alanine Aminotransferase 52 U/L (ALT/SGPT) Alkaline Phosphatase 91 U/L Total Protein 7.6 GM/DL Albumin 3.3 GM/DL White Blood Count 12.9 TH/MM3 Red Blood Count 4.13 MIL/MM3 Hemoglobin 11.2 GM/DL Hematocrit 34.8 % Mean Corpuscular Volume 84.2 FL Mean Corpuscular Hemoglobin 27.1 PG Mean Corpuscular Hemoglobin 32.2 % Concent Red Cell Distribution Width 13.8 % Platelet Count 201 TH/MM3 Mean Platelet Volume 8.6 FL Neutrophils (%) (Auto) 55.6 % Lymphocytes (%) (Auto) 28.6 % Monocytes (%) (Auto) 10.3 % Eosinophils (%) (Auto) 4.8 % Basophils (%) (Auto) 0.7 % Neutrophils # (Auto) 7.1 TH/MM3 Lymphocytes # (Auto) 3.7 TH/MM3 Monocytes # (Auto) 1.3 TH/MM3 Eosinophils # (Auto) 0.6 TH/MM3 Basophils # (Auto) 0.1 TH/MM3 CBC Comment DIFF FINAL Differential Comment Labs reviewed. Anemia remains fairly stable but the patient has a new mild leukocytosis. No fever or other signs of infection. Patient also has mild interval worsening of his GFR, although it is within the historical range for this patient. Vitals/IOs Vital Signs Date Time Temp Pulse Resp B/P Pulse Ox O2 Delivery O2 Flow Rate FiO2 07/10/16 05:41 98.4 85 18 126/63 95 Assessment & Plan Problem List: (1) Schizoaffective disorder, bipolar type ICD Code: F25.0 Assessment & Plan Continue current psychotropics as ordered. Check a urinalysis given leukocytosis. Encourage fluids and recheck GFR after the weekend. Hospitalist consultation noted and appreciated. Continue other medications and care as ordered. Justification for Cont. Inpt. Risk for decompensation. Discharge Planning Placement vs. [facility]. Request HC Surrog/Guard Advoc?: Yes Chetan Cuellar MD Jul 10, 2016 16:10
[2016-07-10 19:30] VITALS: BP 94/41; PULSE 65; RESP 18; TEMP 98.6; O2SAT 96
[2016-07-10] MEDS: REMOVE OLD PATCH T-DERMAL SCH (21:00)
[2016-07-10] MEDS: MELATONIN 5 MG TAB PO SCH (21:04)
[2016-07-10] MEDS: DIVALPROEX DR 500 MG TABEC PO SCH (21:04)
[2016-07-10] MEDS: LITHIUM CARBONATE 300 MG TAB PO SCH (21:04)
[2016-07-11] MEDS: INSULIN ASPART SUPPLEMENTAL SCALE SQ SCH ×4 (05:46→20:54)
[2016-07-11 06:20] VITALS: BP_SYST 136; BP_SYST 143; BP_DIAS 68; BP_DIAS 81; PULSE 62; PULSE 75; RESP 18; TEMP 97.5; TEMP 98.5; O2SAT 99
[2016-07-11] MEDS: BACITRACIN TOP OINT 15 GM TUBE TOP SCH (09:00)
[2016-07-11] MEDS: LIDOCAINE HCL 5% PATCH TD SCH (09:00)
[2016-07-11] MEDS: ENALAPRIL MALEATE 10 MG TAB PO SCH (09:08)
[2016-07-11] MEDS: HALOPERIDOL 2 MG TAB PO SCH ×2 (09:10→20:49)
[2016-07-11] MEDS: ESCITALOPRAM OXALATE 20 MG TAB PO SCH (09:10)
[2016-07-11] MEDS: LITHIUM CARBONATE 300 MG CAP PO SCH (09:10)
[2016-07-11] MEDS: metFORMIN HCL 500 MG TAB PO SCH ×2 (09:10→20:51)
[2016-07-11] MEDS: PANTOPRAZOLE SOD 20 MG DELAYED RELEASE TAB PO SCH (09:10)
[2016-07-11] MEDS: levOCARNitine 10% ORAL SOLN 118 ML BTL PO SCH ×4 (09:11→20:48)
[2016-07-11] MEDS: ACETAMINOPHEN/HYDROcodone 325 MG/5 MG TAB PO PRN (09:38)
--- NOTE | 2016-07-11 12:48 | HHI.PYPN ---
Subjective Remarks Pt seen and discussed with staff. He has been more irritable today per staff but overall is compliant with treatment. No aggression or behavioral problems. No SI/HI Objective Alert: Yes [place]: Person, Place (at least) Mood: Calm Affect: Blunted Memory Intact: Comment (not formally assessed today) Hallucinations: Other (no AVH) Delusions: No Delusion Type: Other (no evident delusional material) Suicidal: Ideation (no SI) Homicidal: Ideation (no HI) Insight/Judgement limited Vitals/IOs Vital Signs Date Time Temp Pulse Resp B/P Pulse Ox O2 Delivery O2 Flow Rate FiO2 07/11/16 06:20 98.5 75 18 136/68 99 Assessment & Plan Problem List: (1) Schizoaffective disorder, bipolar type ICD Code: F25.0 Assessment & Plan Continue current tx plan. Estimated LOS: days Justification for Cont. Inpt. impairments in self-care and risk of decompensation in less structured environment. [facility] hospital referral Request HC Surrog/Guard Advoc?: Yes Marychuy Yoo MD Jul 11, 2016 12:48
[2016-07-11 19:22] VITALS: BP 130/60; PULSE 71; RESP 17; TEMP 98.9; O2SAT 100
[2016-07-11] MEDS: MELATONIN 5 MG TAB PO SCH (20:49)
[2016-07-11] MEDS: DIVALPROEX DR 500 MG TABEC PO SCH (20:50)
[2016-07-11] MEDS: LITHIUM CARBONATE 300 MG TAB PO SCH (20:50)
[2016-07-11] MEDS: REMOVE OLD PATCH T-DERMAL SCH (20:54)
[2016-07-12 06:13] VITALS: BP 124/74; PULSE 73; RESP 18; TEMP 97.7; O2SAT 96
[2016-07-12] MEDS: INSULIN ASPART SUPPLEMENTAL SCALE SQ SCH ×4 (06:43→20:39)
[2016-07-12] MEDS: HALOPERIDOL 2 MG TAB PO SCH ×2 (09:00→20:36)
[2016-07-12] MEDS: LIDOCAINE HCL 5% PATCH TD SCH (09:00)
[2016-07-12] MEDS: BACITRACIN TOP OINT 15 GM TUBE TOP SCH (09:00)
[2016-07-12] MEDS: metFORMIN HCL 500 MG TAB PO SCH ×2 (09:08→20:35)
[2016-07-12] MEDS: LITHIUM CARBONATE 300 MG CAP PO SCH (09:08)
[2016-07-12] MEDS: ESCITALOPRAM OXALATE 20 MG TAB PO SCH (09:08)
[2016-07-12] MEDS: ENALAPRIL MALEATE 10 MG TAB PO SCH (09:08)
[2016-07-12] MEDS: PANTOPRAZOLE SOD 20 MG DELAYED RELEASE TAB PO SCH (09:08)
[2016-07-12] MEDS: IBUPROFEN 600 MG TAB PO PRN (09:54)
--- NOTE | 2016-07-12 10:29 | HHI.PR ---
Addendum To [facility] Progress Not Reason for addendum: Additonal documentation (discussed with RN regarding diagnostic results of patient. Patient already on pain medication. Vital signs , diagnostic studies and labs reviewed. Stable from Hospitalist standpoint. We will sign off. Reconsult as needed.) Aura Choi Jul 12, 2016 10:29
[2016-07-12] MEDS: levOCARNitine 10% ORAL SOLN 118 ML BTL PO SCH ×3 (13:00→20:36)
--- NOTE | 2016-07-12 13:36 | HHI.PYPN ---
Subjective Remarks Pt seen and discussed with staff. Mood is much less irritable today and pt reports that he is feeling good. No sleep disturbance or medication side effects. No SI/HI. Objective Alert: Yes [place]: Person, Place (at least) Mood: Calm Affect: Restricted Memory Intact: Comment (not formally assessed today) Hallucinations: Other (no AVH) Delusions: No Delusion Type: Other (no evident delusional material) Suicidal: Ideation (no SI) Homicidal: Ideation (no HI) Insight/Judgement poor Vitals/IOs Vital Signs Date Time Temp Pulse Resp B/P Pulse Ox O2 Delivery O2 Flow Rate FiO2 07/12/16 06:13 97.7 73 18 124/74 96 Assessment & Plan Problem List: (1) Schizoaffective disorder, bipolar type ICD Code: F25.0 Assessment & Plan Continue current tx plan. Estimated LOS: days Justification for Cont. Inpt. risk of decompensation Request HC Surrog/Guard Advoc?: Yes Marychuy Yoo MD Jul 12, 2016 13:36
[2016-07-12] MEDS: ACETAMINOPHEN/HYDROcodone 325 MG/5 MG TAB PO PRN (17:21)
[2016-07-12 19:43] VITALS: BP 117/66; PULSE 69; RESP 18; TEMP 97.8; O2SAT 96
[2016-07-12] MEDS: MELATONIN 5 MG TAB PO SCH (20:36)
[2016-07-12] MEDS: LITHIUM CARBONATE 300 MG TAB PO SCH (20:36)
[2016-07-12] MEDS: DIVALPROEX DR 500 MG TABEC PO SCH (20:38)
[2016-07-12] MEDS: REMOVE OLD PATCH T-DERMAL SCH (20:40)
[2016-07-13 05:37] VITALS: BP 114/59; PULSE 71; RESP 18; TEMP 97.7
[2016-07-13 06:15] LABS: BLOOD, URINE NEG (NEG); GLUCOSE,URINE NEG (NEG); KETONE, URINE TRACE mg/dL (NEG); MUCUS URINE FEW /lpf (OCC); NITRITE,URINE NEG (NEG); PH, URINE 5.5 (5.0-8.5); URINE COLOR YELLOW (YELLW/STRAW)
[2016-07-13 06:16] LABS: COMMENT (UR) CULT NOT INDICATED; CULTURE IF INDICATED CULT NOT INDICATED
[2016-07-13] MEDS: INSULIN ASPART SUPPLEMENTAL SCALE SQ SCH ×4 (07:00→21:00)
[2016-07-13 07:42] LABS: POTASSIUM 4.2 MEQ/L (3.5-5.1)
[2016-07-13] MEDS: BACITRACIN TOP OINT 15 GM TUBE TOP SCH (09:00)
[2016-07-13] MEDS: PANTOPRAZOLE SOD 20 MG DELAYED RELEASE TAB PO SCH (09:00)
[2016-07-13] MEDS: LITHIUM CARBONATE 300 MG CAP PO SCH (09:00)
[2016-07-13] MEDS: ESCITALOPRAM OXALATE 20 MG TAB PO SCH (09:00)
[2016-07-13] MEDS: HALOPERIDOL 2 MG TAB PO SCH ×2 (09:00→21:12)
[2016-07-13] MEDS: LIDOCAINE HCL 5% PATCH TD SCH (09:00)
[2016-07-13] MEDS: metFORMIN HCL 500 MG TAB PO SCH ×2 (09:00→21:12)
[2016-07-13] MEDS: ENALAPRIL MALEATE 10 MG TAB PO SCH (09:00)
[2016-07-13] MEDS: ACETAMINOPHEN/HYDROcodone 325 MG/5 MG TAB PO PRN ×2 (09:03→21:18)
[2016-07-13] MEDS: levOCARNitine 10% ORAL SOLN 118 ML BTL PO SCH ×2 (13:00→17:59)
--- NOTE | 2016-07-13 16:00 | HHI.PYPN ---
Subjective Remarks Patient seen and examined with interior design assistant. Chart reviewed. Case discussed with nursing staff. On my examination today, patient is in good spirits. He is appreciative of the care that he is receiving. We discuss discharge planning and our difficulties in identifying a facility willing to accept his case. No SI or HI. He denies side effects from medications. Review of Systems Other continues to complain of some mild low back pain. Otherwise no physical complaints. Objective Alert: Yes [place]: Person, Place Mood: Calm Affect: Euthymic Memory Intact: Comment (not assessed) Hallucinations: Other (no AVH) Delusions: No Delusion Type: Other (no delusions) Suicidal: Ideation (none) Homicidal: Ideation (no HI) Insight/Judgement Poor Remarks No motoric abnormalities noted Labs Test 07/13/16 07/13/16 05:30 06:05 Urine Color YELLOW Urine Turbidity CLEAR Urine pH 5.5 Urine Specific [place] 1.012 Urine Protein NEG mg/dL Urine Glucose (UA) NEG mg/dL Urine Ketones TRACE mg/dL Urine Occult Blood NEG Urine Nitrite NEG Urine Bilirubin NEG Urine Urobilinogen LESS THAN 2.0 MG/DL Urine Leukocyte Esterase NEG Urine WBC 1 /hpf Urine Mucus FEW /lpf Microscopic Urinalysis Comment CULT NOT INDICATED Sodium Level 136 MEQ/L Potassium Level 4.2 MEQ/L Chloride Level 102 MEQ/L Carbon Dioxide Level 25.0 MEQ/L Anion Gap 9 MEQ/L Blood Urea Nitrogen 24 MG/DL Creatinine 1.18 MG/DL Estimat Glomerular Filtration 64 ML/MIN Rate Random Glucose 111 MG/DL Calcium Level 9.3 MG/DL [place] Level 0.6 MEQ/L Labs reviewed. Vitals/IOs Vital Signs Date Time Temp Pulse Resp B/P Pulse Ox O2 Delivery O2 Flow Rate FiO2 07/13/16 05:37 97.7 71 18 114/59 07/12/16 19:43 96 Assessment & Plan Problem List: (1) Schizoaffective disorder, bipolar type ICD Code: F25.0 Assessment & Plan Continue current psychotropics as ordered. Continue other medications and care as ordered. Justification for Cont. Inpt. Risk for decompensation Discharge Planning Placement versus state psychiatric referral Request HC Surrog/Guard Advoc?: Yes Chetan Cuellar MD Jul 13, 2016 16:00
[2016-07-13 20:41] VITALS: BP 126/68; PULSE 75; RESP 18; TEMP 98.7; O2SAT 95
[2016-07-13] MEDS: REMOVE OLD PATCH T-DERMAL SCH (21:00)
[2016-07-13] MEDS: MELATONIN 5 MG TAB PO SCH (21:12)
[2016-07-13] MEDS: DIVALPROEX DR 500 MG TABEC PO SCH (21:12)
[2016-07-13] MEDS: LITHIUM CARBONATE 300 MG TAB PO SCH (21:12)
[2016-07-14 06:04] VITALS: BP 141/63; PULSE 81; RESP 18; TEMP 98.5; O2SAT 94
[2016-07-14] MEDS: INSULIN ASPART SUPPLEMENTAL SCALE SQ SCH ×4 (06:35→20:58)
[2016-07-14] MEDS: ACETAMINOPHEN/HYDROcodone 325 MG/5 MG TAB PO PRN ×2 (08:28→18:22)
[2016-07-14] MEDS: metFORMIN HCL 500 MG TAB PO SCH ×2 (08:32→20:59)
[2016-07-14] MEDS: HALOPERIDOL 2 MG TAB PO SCH ×2 (08:32→20:58)
[2016-07-14] MEDS: levOCARNitine 10% ORAL SOLN 118 ML BTL PO SCH ×3 (08:32→17:06)
[2016-07-14] MEDS: LITHIUM CARBONATE 300 MG CAP PO SCH (08:32)
[2016-07-14] MEDS: ESCITALOPRAM OXALATE 20 MG TAB PO SCH (08:32)
[2016-07-14] MEDS: ENALAPRIL MALEATE 10 MG TAB PO SCH (08:33)
[2016-07-14] MEDS: PANTOPRAZOLE SOD 20 MG DELAYED RELEASE TAB PO SCH (08:33)
[2016-07-14] MEDS: LIDOCAINE HCL 5% PATCH TD SCH (08:34)
[2016-07-14] MEDS: BACITRACIN TOP OINT 15 GM TUBE TOP SCH (08:35)
--- NOTE | 2016-07-14 09:51 | HHI.PYPN ---
Subjective Remarks Patient seen and examined with counselor and database designer. Chart reviewed. Case discussed in treatment team. Per nursing staff, patient has been no behavioral problem overnight. On my examination today, the patient is in good spirits. He denies low mood. He denies any AVH. No SI or HI. No delusional material voiced today. Denies side effects from medications. Review of Systems Other No physical complaints today. Objective Alert: Yes [place]: Person, Place Mood: Calm Affect: Euthymic (remains euthymic) Memory Intact: Comment (Not formally assessed today) Hallucinations: Other (No AVH) Delusions: No Delusion Type: Other (No delusional material today) Suicidal: Ideation (No SI) Homicidal: Ideation (No HI) Insight/Judgement Poor Remarks TP linear. Labs Labs reviewed. No new labs. Vitals/IOs Vital Signs Date Time Temp Pulse Resp B/P Pulse Ox O2 Delivery O2 Flow Rate FiO2 07/14/16 06:04 98.5 81 18 141/63 94 Assessment & Plan Problem List: (1) Schizoaffective disorder, bipolar type ICD Code: F25.0 Assessment & Plan Continue current medications and care as ordered. Lack of accepting facility remains main barrier to discharge. Justification for Cont. Inpt. Risk for decompensation. Discharge Planning Placement versus [facility]. Request HC Surrog/Guard Advoc?: Yes Chetan Cuellar MD Jul 14, 2016 09:51
[2016-07-14] MEDS: MELATONIN 5 MG TAB PO SCH (20:59)
[2016-07-14] MEDS: LITHIUM CARBONATE 300 MG TAB PO SCH (20:59)
[2016-07-14] MEDS: IBUPROFEN 600 MG TAB PO PRN (20:59)
[2016-07-14] MEDS: DIVALPROEX DR 500 MG TABEC PO SCH (20:59)
[2016-07-14 21:55] VITALS: BP 133/65; PULSE 80; RESP 19; TEMP 98.7; O2SAT 95
[2016-07-15 06:07] VITALS: BP 140/67; PULSE 65; RESP 18; TEMP 97.7; O2SAT 96
[2016-07-15] MEDS: INSULIN ASPART SUPPLEMENTAL SCALE SQ SCH ×4 (06:52→21:00)
[2016-07-15] MEDS: HALOPERIDOL 2 MG TAB PO SCH ×2 (09:00→20:53)
[2016-07-15] MEDS: ESCITALOPRAM OXALATE 20 MG TAB PO SCH (09:00)
[2016-07-15] MEDS: BACITRACIN TOP OINT 15 GM TUBE TOP SCH (09:00)
[2016-07-15] MEDS: metFORMIN HCL 500 MG TAB PO SCH ×2 (09:00→20:53)
[2016-07-15] MEDS: ENALAPRIL MALEATE 10 MG TAB PO SCH (09:00)
[2016-07-15] MEDS: levOCARNitine 10% ORAL SOLN 118 ML BTL PO SCH ×3 (09:00→18:00)
[2016-07-15] MEDS: LITHIUM CARBONATE 300 MG CAP PO SCH (09:00)
[2016-07-15] MEDS: PANTOPRAZOLE SOD 20 MG DELAYED RELEASE TAB PO SCH (09:00)
[2016-07-15] MEDS: ACETAMINOPHEN/HYDROcodone 325 MG/5 MG TAB PO PRN (09:42)
--- NOTE | 2016-07-15 11:32 | HHI.PYPN ---
Subjective Remarks Patient seen and examined with counselor in printed circuit designer. Chart reviewed. Case discussed with nursing staff. No problematic behaviors noted. On my examination today, the patient is in fair spirits. Counselor informs me that a facility, [facility], has expressed interest in having the patient reside there. Patient's sister and guardian advocate has reportedly expressed some reticence to having him go there and wonders if there are other options. I do note that the counselor has been calling to other placements to which we had set a referral, although it appears that our options at this point are quite limited. We did discuss the matter with the patient who was interested in transitioning out of the hospital setting and was receptive to placement at the [facility]. No side effects from medications. Review of Systems Other No reported physical complaints today Objective Alert: Yes [place]: Person, Place Mood: Calm Affect: Blunted Memory Intact: Comment (not assessed today) Hallucinations: Other (none) Delusions: No Delusion Type: Other (no delusions) Suicidal: Ideation (no suicidal ideation) Homicidal: Ideation (no homicidal ideation) Insight/Judgement Poor Remarks No abnormal motor movements noted Labs Labs reviewed. No new labs. Vitals/IOs Vital Signs Date Time Temp Pulse Resp B/P Pulse Ox O2 Delivery O2 Flow Rate FiO2 07/15/16 06:07 97.7 65 18 140/67 96 Assessment & Plan Problem List: (1) Schizoaffective disorder, bipolar type ICD Code: F25.0 Assessment & Plan Continue current psychotropics as ordered. Continue other medications include as ordered. Justification for Cont. Inpt. Risk for decompensation Discharge Planning Counselor to speak further with patient's sister later today. [facility] facility may represent our best discharge plan for this patient given his history. [facility] referral initiated. Request HC Surrog/Guard Advoc?: Yes Chetan Cuellar MD Jul 15, 2016 11:32
[2016-07-15 19:54] VITALS: BP 145/66; PULSE 72; RESP 16; TEMP 98.2
[2016-07-15] MEDS: DIVALPROEX DR 500 MG TABEC PO SCH (20:53)
[2016-07-15] MEDS: MELATONIN 5 MG TAB PO SCH (20:53)
[2016-07-15] MEDS: LITHIUM CARBONATE 300 MG TAB PO SCH (20:53)
[2016-07-16 06:00] VITALS: BP 145/67; PULSE 80; RESP 18; TEMP 98.1
[2016-07-16] MEDS: INSULIN ASPART SUPPLEMENTAL SCALE SQ SCH ×4 (06:36→20:32)
[2016-07-16] MEDS: HALOPERIDOL 2 MG TAB PO SCH ×2 (09:00→20:31)
[2016-07-16] MEDS: metFORMIN HCL 500 MG TAB PO SCH ×2 (09:00→20:31)
[2016-07-16] MEDS: ESCITALOPRAM OXALATE 20 MG TAB PO SCH (09:00)
[2016-07-16] MEDS: levOCARNitine 10% ORAL SOLN 118 ML BTL PO SCH ×3 (09:00→17:53)
[2016-07-16] MEDS: ENALAPRIL MALEATE 10 MG TAB PO SCH (09:00)
[2016-07-16] MEDS: LITHIUM CARBONATE 300 MG CAP PO SCH (09:00)
[2016-07-16] MEDS: BACITRACIN TOP OINT 15 GM TUBE TOP SCH (09:00)
[2016-07-16] MEDS: PANTOPRAZOLE SOD 20 MG DELAYED RELEASE TAB PO SCH (09:00)
--- NOTE | 2016-07-16 17:37 | HHI.PYPN ---
Subjective Remarks Pt seen and examined with RN and assignment officer. Chart reviewed. Case discussed with RN. On my exam today, pt is in fair spirits. He complains of some ongoing musculoskeletal pain but says he is doing exercises provided to him by PT. No reported side effects from medications, but he seems a little more tremulous today. Review of Systems Other As above. Otherwise, no somatic complaints. Objective Alert: Yes [place]: Person, Place Mood: Calm (remains calm) Affect: Blunted Memory Intact: Comment (Not formally assessed) Hallucinations: Other (No AVH) Delusions: No Delusion Type: Other (No evident delusions) Suicidal: Ideation (No SI) Homicidal: Ideation (No HI) Insight/Judgement Poor Remarks Mild resting hand tremor. No cog-wheeling. Possibly some mild mask facies. No ataxia. Labs Labs reviewed. No new labs. Vitals/IOs Vital Signs Date Time Temp Pulse Resp B/P Pulse Ox O2 Delivery O2 Flow Rate FiO2 07/16/16 06:00 98.1 80 18 145/67 07/15/16 06:07 96 Assessment & Plan Problem List: (1) Schizoaffective disorder, bipolar type ICD Code: F25.0 Assessment & Plan A little tremulous today. I will add low dose of Cogentin and treat as for EPS , but I will also check a lithium level and BMP, although this does not look like a classic lithium tremor. Continue other medications and care as ordered. Justification for Cont. Inpt. Risk for decompensation [facility] Counselor to discuss placement option with sister. Request HC Surrog/Guard Advoc?: Yes Chetan Cuellar MD Jul 16, 2016 17:37
[2016-07-16] MEDS: ACETAMINOPHEN/HYDROcodone 325 MG/5 MG TAB PO PRN (17:55)
[2016-07-16 18:19] VITALS: BP 133/62; PULSE 69; RESP 18; TEMP 98.3
[2016-07-16] MEDS: LITHIUM CARBONATE 300 MG TAB PO SCH (20:31)
[2016-07-16] MEDS: DIVALPROEX DR 500 MG TABEC PO SCH (20:31)
[2016-07-16] MEDS: BENZTROPINE MESYLATE 1 MG TAB PO SCH (20:31)
[2016-07-16] MEDS: MELATONIN 5 MG TAB PO SCH (20:32)
[2016-07-17 05:25] VITALS: BP 140/64; PULSE 73; RESP 18; TEMP 98.5; O2SAT 96
[2016-07-17] MEDS: INSULIN ASPART SUPPLEMENTAL SCALE SQ SCH ×4 (06:16→21:00)
[2016-07-17 08:08] LABS: BICARBONATE 25.3 MEQ/L (21.0-32.0); POTASSIUM 4.4 MEQ/L (3.5-5.1)
[2016-07-17] MEDS: levOCARNitine 10% ORAL SOLN 118 ML BTL PO SCH ×3 (08:55→18:00)
[2016-07-17] MEDS: metFORMIN HCL 500 MG TAB PO SCH ×2 (08:55→21:00)
[2016-07-17] MEDS: BENZTROPINE MESYLATE 1 MG TAB PO SCH ×2 (08:55→20:59)
[2016-07-17] MEDS: BACITRACIN TOP OINT 15 GM TUBE TOP SCH (08:55)
[2016-07-17] MEDS: HALOPERIDOL 2 MG TAB PO SCH ×2 (08:55→21:00)
[2016-07-17] MEDS: LITHIUM CARBONATE 300 MG CAP PO SCH (08:55)
[2016-07-17] MEDS: ENALAPRIL MALEATE 10 MG TAB PO SCH (08:55)
[2016-07-17] MEDS: ESCITALOPRAM OXALATE 20 MG TAB PO SCH (08:55)
[2016-07-17] MEDS: PANTOPRAZOLE SOD 20 MG DELAYED RELEASE TAB PO SCH (08:55)
[2016-07-17] MEDS: ACETAMINOPHEN/HYDROcodone 325 MG/5 MG TAB PO PRN ×2 (08:55→21:02)
--- NOTE | 2016-07-17 15:43 | HHI.PYPN ---
Subjective Remarks Patient seen and examined with industrial designer. Chart reviewed. Case discussed with nursing staff. On my examination today, patient appears to be in fairly good spirits. He is calm and pleasant on examination. He denies side effects from medications. He would like to be transferred back to the lower acuity psychiatric unit. Review of Systems Other No physical complaints today Objective Alert: Yes [place]: Person, Place Mood: Calm Affect: Blunted Memory Intact: Comment (Not formally assessed) Hallucinations: Other (none) Delusions: No Delusion Type: Other (no delusions) Suicidal: Ideation (No SI) Homicidal: Ideation (No HI) Insight/Judgement Poor Remarks Hand tremor is significantly lessened today after receiving Cogentin. No dystonias or dyskinesias noted. Labs Test 07/17/16 07:02 Sodium Level 137 MEQ/L Potassium Level 4.4 MEQ/L Chloride Level 102 MEQ/L Carbon Dioxide Level 25.3 MEQ/L Anion Gap 10 MEQ/L Blood Urea Nitrogen 20 MG/DL Creatinine 1.18 MG/DL Estimat Glomerular Filtration 64 ML/MIN Rate Random Glucose 114 MG/DL Calcium Level 9.2 MG/DL [place] Level 0.8 MEQ/L Labs reviewed. Renal function is stable and lithium level is in the therapeutic range. Vitals/IOs Vital Signs Date Time Temp Pulse Resp B/P Pulse Ox O2 Delivery O2 Flow Rate FiO2 07/17/16 05:25 98.5 73 18 140/64 96 Assessment & Plan Problem List: (1) Schizoaffective disorder, bipolar type ICD Code: F25.0 Assessment & Plan Continue current psychotropics as ordered. Continue Cogentin. Continue other medications and care as ordered. Justification for Cont. Inpt. Risk for decompensation [facility]charge [facility] Case discussed with counselor. Request HC Surrog/Guard Advoc?: Yes Chetan Cuellar MD Jul 17, 2016 15:43
[2016-07-17 18:37] VITALS: BP 110/54; PULSE 62; RESP 16; TEMP 98.4; O2SAT 97
[2016-07-17] MEDS: MELATONIN 5 MG TAB PO SCH (20:59)
[2016-07-17] MEDS: DIVALPROEX DR 500 MG TABEC PO SCH (20:59)
[2016-07-17] MEDS: LITHIUM CARBONATE 300 MG TAB PO SCH (21:00)
[2016-07-18] MEDS: IBUPROFEN 600 MG TAB PO PRN ×2 (01:16→11:10)
[2016-07-18] MEDS: diphenhydrAMINE HCL 50 MG CAP - HS PRN PO (01:52)
[2016-07-18] MEDS: LORazepam 1 MG TAB PO PRN (01:54)
[2016-07-18 05:27] VITALS: BP 122/58; PULSE 75; RESP 18; TEMP 98.2; O2SAT 98
[2016-07-18] MEDS: INSULIN ASPART SUPPLEMENTAL SCALE SQ SCH ×4 (06:18→20:24)
[2016-07-18] MEDS: metFORMIN HCL 500 MG TAB PO SCH ×2 (08:40→19:59)
[2016-07-18] MEDS: BACITRACIN TOP OINT 15 GM TUBE TOP SCH (08:40)
[2016-07-18] MEDS: ENALAPRIL MALEATE 10 MG TAB PO SCH (08:40)
[2016-07-18] MEDS: LITHIUM CARBONATE 300 MG CAP PO SCH (08:40)
[2016-07-18] MEDS: PANTOPRAZOLE SOD 20 MG DELAYED RELEASE TAB PO SCH (08:44)
[2016-07-18] MEDS: BENZTROPINE MESYLATE 1 MG TAB PO SCH ×2 (08:45→19:59)
[2016-07-18] MEDS: HALOPERIDOL 2 MG TAB PO SCH ×2 (08:45→19:58)
[2016-07-18] MEDS: ESCITALOPRAM OXALATE 20 MG TAB PO SCH (08:45)
[2016-07-18] MEDS: levOCARNitine 10% ORAL SOLN 118 ML BTL PO SCH ×3 (09:00→17:42)
--- NOTE | 2016-07-18 17:39 | HHI.PYPN ---
Subjective Remarks Patient was seen and case discussed with nursing. Patient claims he has not had an x-ray of her shoulder in 3 weeks. Waning of left shoulder pain. Review of records shows he had an x-ray done on July 09 and no acute process was found. Patient was offered a Lidoderm patch to help with pain. Mood remains stable. He is friendly and cooperative with nursing. Denies suicidal ideations thought or plan Objective Alert: Yes [place]: Person, Place Mood: Calm Affect: Blunted Memory Intact: Comment (Not formally assessed) Hallucinations: Other (none) Delusions: No Delusion Type: Other (no delusions) Suicidal: Ideation (No SI) Homicidal: Ideation (No HI) Insight/Judgement Fair Vitals/IOs Vital Signs Date Time Temp Pulse Resp B/P Pulse Ox O2 Delivery O2 Flow Rate FiO2 07/18/16 05:27 98.2 75 18 122/58 98 Intake and Output 07/17/16 07/17/16 07/18/16 08:00 16:00 00:00 Intake Total 360 ml Balance 360 ml Assessment & Plan Problem List: (1) Schizoaffective disorder, bipolar type ICD Code: F25.0 Assessment & Plan Continue current treatment plan Justification for Cont. Inpt. Patient will decompensate outside the hospital Request HC Surrog/Guard Advoc?: Yes London Fontaine DO Jul 18, 2016 17:39
[2016-07-18 19:00] VITALS: BP 89/54; PULSE 53; RESP 18; TEMP 97.8; O2SAT 95
[2016-07-18] MEDS: LITHIUM CARBONATE 300 MG TAB PO SCH (19:58)
[2016-07-18] MEDS: MELATONIN 5 MG TAB PO SCH (19:59)
[2016-07-18] MEDS: DIVALPROEX DR 500 MG TABEC PO SCH (19:59)
[2016-07-18] MEDS: ACETAMINOPHEN/HYDROcodone 325 MG/5 MG TAB PO PRN (20:01)
[2016-07-18] MEDS: LIDOCAINE HCL 5% PATCH TD SCH (20:39)
[2016-07-19 06:25] VITALS: BP 138/84; PULSE 84; RESP 18; TEMP 98.3; O2SAT 95
[2016-07-19] MEDS: INSULIN ASPART SUPPLEMENTAL SCALE SQ SCH ×4 (06:30→20:27)
[2016-07-19] MEDS: metFORMIN HCL 500 MG TAB PO SCH ×2 (08:19→20:27)
[2016-07-19] MEDS: PANTOPRAZOLE SOD 20 MG DELAYED RELEASE TAB PO SCH (08:19)
[2016-07-19] MEDS: HALOPERIDOL 2 MG TAB PO SCH ×2 (08:20→20:27)
[2016-07-19] MEDS: ESCITALOPRAM OXALATE 20 MG TAB PO SCH (08:21)
[2016-07-19] MEDS: LITHIUM CARBONATE 300 MG CAP PO SCH (08:21)
[2016-07-19] MEDS: levOCARNitine 10% ORAL SOLN 118 ML BTL PO SCH ×3 (08:22→17:17)
[2016-07-19] MEDS: ENALAPRIL MALEATE 10 MG TAB PO SCH (08:22)
[2016-07-19] MEDS: BENZTROPINE MESYLATE 1 MG TAB PO SCH ×2 (08:22→20:27)
[2016-07-19] MEDS: BACITRACIN TOP OINT 15 GM TUBE TOP SCH (08:22)
[2016-07-19] MEDS: REMOVE OLD LIDOCAINE PATCH TD SCH (09:00)
[2016-07-19] MEDS: IBUPROFEN 600 MG TAB PO PRN (13:42)
--- NOTE | 2016-07-19 16:39 | HHI.PYPN ---
Subjective Remarks Patient was seen and case discussed with nursing. Nursing conversation with patient with per diem interpreter before this interview. Per nursing patient denied suicidal ideations thought content or plan. Continues to do well. Interactive with staff. Noticed the benefit from the Lidoderm patch Objective Alert: Yes [place]: Person, Place Mood: Calm Affect: Blunted Memory Intact: Comment (Not formally assessed) Hallucinations: Other (none) Delusions: No Delusion Type: Other (no delusions) Suicidal: Ideation (No SI) Homicidal: Ideation (No HI) Insight/Judgement Poor Vitals/IOs Vital Signs Date Time Temp Pulse Resp B/P Pulse Ox O2 Delivery O2 Flow Rate FiO2 07/19/16 06:25 98.3 84 18 138/84 95 Assessment & Plan Problem List: (1) Schizoaffective disorder, bipolar type ICD Code: F25.0 Assessment & Plan Continue current treatment plan Justification for Cont. Inpt. Patient will decompensate in a less restrictive setting Request HC Surrog/Guard Advoc?: Yes London Fontaine DO Jul 19, 2016 16:39
[2016-07-19 18:26] VITALS: BP 126/60; PULSE 60; RESP 17; TEMP 98; O2SAT 96
[2016-07-19] MEDS: DIVALPROEX DR 500 MG TABEC PO SCH (20:27)
[2016-07-19] MEDS: ACETAMINOPHEN/HYDROcodone 325 MG/5 MG TAB PO PRN (20:27)
[2016-07-19] MEDS: LITHIUM CARBONATE 300 MG TAB PO SCH (20:27)
[2016-07-19] MEDS: MELATONIN 5 MG TAB PO SCH (20:27)
[2016-07-19] MEDS: LIDOCAINE HCL 5% PATCH TD SCH (20:30)
[2016-07-20] MEDS: ACETAMINOPHEN/HYDROcodone 325 MG/5 MG TAB PO PRN ×3 (01:38→20:35)
[2016-07-20] MEDS: INSULIN ASPART SUPPLEMENTAL SCALE SQ SCH ×4 (05:29→20:35)
[2016-07-20 05:51] VITALS: BP 128/68; PULSE 60; RESP 18; TEMP 97.9; O2SAT 96
[2016-07-20] MEDS: hydrOXYzine HCL 50 MG TAB PO PRN (06:45)
[2016-07-20] MEDS: levOCARNitine 10% ORAL SOLN 118 ML BTL PO SCH ×3 (08:21→16:44)
[2016-07-20] MEDS: PANTOPRAZOLE SOD 20 MG DELAYED RELEASE TAB PO SCH (08:21)
[2016-07-20] MEDS: ESCITALOPRAM OXALATE 20 MG TAB PO SCH (08:21)
[2016-07-20] MEDS: ENALAPRIL MALEATE 10 MG TAB PO SCH (08:21)
[2016-07-20] MEDS: metFORMIN HCL 500 MG TAB PO SCH ×2 (08:21→20:35)
[2016-07-20] MEDS: LITHIUM CARBONATE 300 MG CAP PO SCH (08:22)
[2016-07-20] MEDS: BENZTROPINE MESYLATE 1 MG TAB PO SCH ×2 (08:22→20:34)
[2016-07-20] MEDS: HALOPERIDOL 2 MG TAB PO SCH ×2 (08:23→20:35)
[2016-07-20] MEDS: REMOVE OLD LIDOCAINE PATCH TD SCH (08:26)
[2016-07-20] MEDS: BACITRACIN TOP OINT 15 GM TUBE TOP SCH (08:31)
--- NOTE | 2016-07-20 12:00 | HHI.PYPN ---
Subjective Remarks Patient seen and examined with counselor. Chart reviewed. Case discussed with nursing staff. Patient seen with sign carpenter as well. On my examination today, the patient is in good spirits. He says that he is hopeful that we can find him a place to live in [place]. We discussed the difficulties with placement. Patient denies side effects from medications. Review of Systems Other Patient complains of some ongoing mild shoulder pain. No other physical complaints. Objective Alert: Yes [place]: Person, Place Mood: Calm Affect: Euthymic Memory Intact: Comment (Not formally assessed) Hallucinations: Other (none) Delusions: No Delusion Type: Other (no delusional material) Suicidal: Ideation (No SI) Homicidal: Ideation (No HI) Insight/Judgement Poor Remarks Hand tremor minimal today. No other motoric abnormalities noted. Labs Labs rev. No new labs. Vitals/IOs Vital Signs Date Time Temp Pulse Resp B/P Pulse Ox O2 Delivery O2 Flow Rate FiO2 07/20/16 05:51 97.9 60 18 128/68 96 Assessment & Plan Problem List: (1) Schizoaffective disorder, bipolar type ICD Code: F25.0 Assessment & Plan Continue current psychotropics as ordered. Continue other medications and care as ordered. Justification for Cont. Inpt. Risk for decompensation [facility] Request HC Surrog/Guard Advoc?: Yes Chetan Cuellar MD Jul 20, 2016 12:00
[2016-07-20 18:45] VITALS: BP 131/60; PULSE 68; RESP 18; TEMP 98.2; O2SAT 96
[2016-07-20] MEDS: DIVALPROEX DR 500 MG TABEC PO SCH (20:34)
[2016-07-20] MEDS: MELATONIN 5 MG TAB PO SCH (20:35)
[2016-07-20] MEDS: LITHIUM CARBONATE 300 MG TAB PO SCH (20:35)
[2016-07-20] MEDS: LIDOCAINE HCL 5% PATCH TD SCH (20:35)
[2016-07-21 05:40] VITALS: BP 130/80; PULSE 81; RESP 18; TEMP 98.1; O2SAT 95
[2016-07-21] MEDS: INSULIN ASPART SUPPLEMENTAL SCALE SQ SCH ×4 (07:00→20:11)
[2016-07-21] MEDS: REMOVE OLD LIDOCAINE PATCH TD SCH (09:00)
[2016-07-21] MEDS: BACITRACIN TOP OINT 15 GM TUBE TOP SCH (09:00)
--- NOTE | 2016-07-21 09:16 | HHI.PYPN ---
Subjective Remarks Pt seen and examined in treatment team with RN, counselor and OT. Chart reviewed. Case discussed in treatment team. On my examination today, patient is in good spirits. He has been working with physical therapy for his shoulder pain and says that this is somewhat better now. Remains agreeable to placement. Says that the medications are working well and denies side effects. I did offer to transfer him to the lower acuity unit where I think he might be more comfortable but the patient says that he would prefer to stay on 2700 for now. Review of Systems Other Shoulder pain improving. No other physical complaints. Objective Alert: Yes [place]: Person, Place Mood: Calm Affect: Euthymic (remains euthymic) Memory Intact: Comment (Not formally assessed) Hallucinations: Other (no AVH) Delusions: No Delusion Type: Other (no delusions) Suicidal: Ideation (no suicidal ideation) Homicidal: Ideation (no homicidal ideation) Insight/Judgement Poor Remarks Thought process linear Labs Labs reviewed. No new labs. Vitals/IOs Vital Signs Date Time Temp Pulse Resp B/P Pulse Ox O2 Delivery O2 Flow Rate FiO2 07/21/16 05:40 98.1 81 18 130/80 95 Assessment & Plan Problem List: (1) Schizoaffective disorder, bipolar type ICD Code: F25.0 Assessment & Plan Continue current psychiatric medications. Continue other medications as ordered. Continue other care as ordered. Appreciate physical therapy working with the patient. Justification for Cont. Inpt. Risk for decompensation. Discharge Planning Placement versus [facility]. Case discussed with counselor. Request HC Surrog/Guard Advoc?: Yes Chetan Cuellar MD Jul 21, 2016 09:16
[2016-07-21] MEDS: levOCARNitine 10% ORAL SOLN 118 ML BTL PO SCH ×3 (09:45→18:10)
[2016-07-21] MEDS: BENZTROPINE MESYLATE 1 MG TAB PO SCH ×2 (09:46→20:09)
[2016-07-21] MEDS: PANTOPRAZOLE SOD 20 MG DELAYED RELEASE TAB PO SCH (09:46)
[2016-07-21] MEDS: HALOPERIDOL 2 MG TAB PO SCH ×2 (09:47→20:05)
[2016-07-21] MEDS: ENALAPRIL MALEATE 10 MG TAB PO SCH (09:47)
[2016-07-21] MEDS: ESCITALOPRAM OXALATE 20 MG TAB PO SCH (09:47)
[2016-07-21] MEDS: LITHIUM CARBONATE 300 MG CAP PO SCH (09:47)
[2016-07-21] MEDS: metFORMIN HCL 500 MG TAB PO SCH ×2 (09:48→20:07)
[2016-07-21 18:00] VITALS: BP 115/60; PULSE 62; RESP 19; TEMP 98.9
[2016-07-21] MEDS: ACETAMINOPHEN/HYDROcodone 325 MG/5 MG TAB PO PRN (19:26)
[2016-07-21] MEDS: DIVALPROEX DR 500 MG TABEC PO SCH (20:02)
[2016-07-21] MEDS: MELATONIN 5 MG TAB PO SCH (20:07)
[2016-07-21] MEDS: LITHIUM CARBONATE 300 MG TAB PO SCH (20:09)
[2016-07-21] MEDS: hydrOXYzine HCL 50 MG TAB PO PRN (20:09)
[2016-07-21] MEDS: LIDOCAINE HCL 5% PATCH TD SCH (20:10)
[2016-07-22] MEDS: ACETAMINOPHEN/HYDROcodone 325 MG/5 MG TAB PO PRN ×4 (00:07→21:30)
[2016-07-22] MEDS: hydrOXYzine HCL 50 MG TAB PO PRN ×2 (06:13→21:17)
[2016-07-22] MEDS: INSULIN ASPART SUPPLEMENTAL SCALE SQ SCH ×4 (06:15→20:46)
[2016-07-22 06:46] VITALS: BP 118/59; PULSE 70; RESP 18; TEMP 98.3; O2SAT 98
[2016-07-22] MEDS: ESCITALOPRAM OXALATE 20 MG TAB PO SCH (08:58)
[2016-07-22] MEDS: ENALAPRIL MALEATE 10 MG TAB PO SCH (08:58)
[2016-07-22] MEDS: PANTOPRAZOLE SOD 20 MG DELAYED RELEASE TAB PO SCH (08:58)
[2016-07-22] MEDS: BENZTROPINE MESYLATE 1 MG TAB PO SCH ×2 (08:58→20:34)
[2016-07-22] MEDS: metFORMIN HCL 500 MG TAB PO SCH ×2 (08:58→20:33)
[2016-07-22] MEDS: LITHIUM CARBONATE 300 MG CAP PO SCH (08:59)
[2016-07-22] MEDS: HALOPERIDOL 2 MG TAB PO SCH ×2 (08:59→20:33)
[2016-07-22] MEDS: levOCARNitine 10% ORAL SOLN 118 ML BTL PO SCH ×3 (09:00→17:41)
[2016-07-22] MEDS: REMOVE OLD LIDOCAINE PATCH TD SCH (09:00)
--- NOTE | 2016-07-22 10:34 | HHI.PYPN ---
Subjective Remarks Patient seen and examined with counselor and also with communications designer. Chart reviewed. Case discussed with nursing staff. On my examination today, patient is in good spirits. He feels like his medications are working well and denies any side effects. Lengthy discussion with patient today regarding disposition planning. He continues to articulate a desire to live independently but is receptive to assisted living facility placement as a transition. Review of Systems Other No physical complaints today Objective Alert: Yes [place]: Person, Place Mood: Calm Affect: Euthymic Memory Intact: Comment (Not formally assessed) Hallucinations: Other (none) Delusions: No Delusion Type: Other (no delusions) Suicidal: Ideation (no SI) Homicidal: Ideation (no HI) Insight/Judgement Poor Remarks Thought processes linear Labs Labs reviewed. No new labs. Vitals/IOs Vital Signs Date Time Temp Pulse Resp B/P Pulse Ox O2 Delivery O2 Flow Rate FiO2 07/22/16 06:46 98.3 70 18 118/59 98 Assessment & Plan Problem List: (1) Schizoaffective disorder, bipolar type ICD Code: F25.0 Assessment & Plan Continue current psychiatric medications as ordered. Continue other medications and care as ordered. Justification for Cont. Inpt. Risk for decompensation Discharge Planning Placement versus [facility]. Request HC Surrog/Guard Advoc?: Yes Chetan Cuellar MD Jul 22, 2016 10:34
[2016-07-22] MEDS: IBUPROFEN 600 MG TAB PO PRN (20:10)
[2016-07-22] MEDS: LORazepam 1 MG TAB PO PRN (20:31)
[2016-07-22] MEDS: DIVALPROEX DR 500 MG TABEC PO SCH (20:31)
[2016-07-22] MEDS: MELATONIN 5 MG TAB PO SCH (20:34)
[2016-07-22] MEDS: LITHIUM CARBONATE 300 MG TAB PO SCH (20:35)
[2016-07-22] MEDS: LIDOCAINE HCL 5% PATCH TD SCH (21:00)
[2016-07-22 21:48] VITALS: BP 110/59; PULSE 79; RESP 18; TEMP 96.8; O2SAT 93
[2016-07-23] MEDS: ACETAMINOPHEN/HYDROcodone 325 MG/5 MG TAB PO PRN ×2 (02:09→06:52)
[2016-07-23 05:47] VITALS: BP 137/63; PULSE 67; RESP 18; TEMP 97.1; O2SAT 95
[2016-07-23] MEDS: INSULIN ASPART SUPPLEMENTAL SCALE SQ SCH ×4 (06:01→19:57)
[2016-07-23] MEDS: hydrOXYzine HCL 50 MG TAB PO PRN ×2 (06:51→22:15)
[2016-07-23] MEDS: ENALAPRIL MALEATE 10 MG TAB PO SCH (08:54)
[2016-07-23] MEDS: levOCARNitine 10% ORAL SOLN 118 ML BTL PO SCH ×3 (08:54→18:00)
[2016-07-23] MEDS: LITHIUM CARBONATE 300 MG CAP PO SCH (08:54)
[2016-07-23] MEDS: PANTOPRAZOLE SOD 20 MG DELAYED RELEASE TAB PO SCH (08:54)
[2016-07-23] MEDS: metFORMIN HCL 500 MG TAB PO SCH ×2 (08:55→21:07)
[2016-07-23] MEDS: HALOPERIDOL 2 MG TAB PO SCH ×2 (08:55→19:59)
[2016-07-23] MEDS: BENZTROPINE MESYLATE 1 MG TAB PO SCH ×2 (08:55→19:59)
[2016-07-23] MEDS: ESCITALOPRAM OXALATE 20 MG TAB PO SCH (08:55)
[2016-07-23] MEDS: REMOVE OLD LIDOCAINE PATCH TD SCH (09:00)
--- NOTE | 2016-07-23 17:13 | HHI.PYPN ---
Subjective Remarks Patient seen and examined with assistance of designer/writer. Chart reviewed. Case discussed with nursing staff. diplomatic interpreter/translator informs me that the patient may have been misinterpreting signs for assisted living as the symbols for "assisted" and "anus" are reportedly quite similar. She reports that she spent some time yesterday clarifying this with the patient. For me today, patient is now considerably more enthusiastic about going into an [facility]. He understands that this is a needed stepping stone on his way to achieve his goal of independent living. He reports he is doing well otherwise with no psychiatric issues to speak of. Account Executive Trainee notes that she knows of an [facility] in [place] run by a deaf couple that may have escaped our initial search, and she will get the contact info for us. Review of Systems Other No physical complaints today. Objective Alert: Yes [place]: Person, Place Mood: Calm Affect: Euthymic (remains euthymic) Memory Intact: Comment (Not formally assessed) Hallucinations: Other (No AVH) Delusions: No Delusion Type: Other (No delusional material) Suicidal: Ideation (No suicidal ideation) Homicidal: Ideation (No homicidal ideation) Insight/Judgement Poor Remarks TP seems fairly linear. Grooming and self-care are fair. Labs Labs reviewed. No new labs. Vitals/IOs Vital Signs Date Time Temp Pulse Resp B/P Pulse Ox O2 Delivery O2 Flow Rate FiO2 07/23/16 05:47 97.1 67 18 137/63 95 Assessment & Plan Problem List: (1) Schizoaffective disorder, bipolar type ICD Code: F25.0 Assessment & Plan Continue current psychotropics as ordered. Continue other medications as ordered. Continue other care as ordered. Justification for Cont. Inpt. Risk for decompensation Discharge Planning Placement versus [facility]. Possibly a new lead with the facility mentioned by the designer/writer. We will follow-up. Request HC Surrog/Guard Advoc?: Yes Chetan Cuellar MD Jul 23, 2016 17:13
[2016-07-23 18:17] VITALS: BP 101/57; PULSE 70; RESP 17; TEMP 96.7; O2SAT 96
[2016-07-23] MEDS: DIVALPROEX DR 500 MG TABEC PO SCH (19:59)
[2016-07-23] MEDS: diphenhydrAMINE HCL 50 MG CAP - HS PRN PO (20:00)
[2016-07-23] MEDS: LITHIUM CARBONATE 300 MG TAB PO SCH (20:00)
[2016-07-23] MEDS: LIDOCAINE HCL 5% PATCH TD SCH (21:00)
[2016-07-23] MEDS: MELATONIN 5 MG TAB PO SCH (21:07)
[2016-07-23] MEDS: LORazepam 1 MG TAB PO PRN (22:15)
[2016-07-24 06:13] VITALS: BP 143/68; PULSE 89; RESP 20; TEMP 98.6; O2SAT 96
[2016-07-24] MEDS: INSULIN ASPART SUPPLEMENTAL SCALE SQ SCH ×4 (06:31→20:32)
[2016-07-24] MEDS: REMOVE OLD LIDOCAINE PATCH TD SCH (09:00)
[2016-07-24] MEDS: levOCARNitine 10% ORAL SOLN 118 ML BTL PO SCH ×3 (09:21→17:37)
[2016-07-24] MEDS: LITHIUM CARBONATE 300 MG CAP PO SCH (09:21)
[2016-07-24] MEDS: metFORMIN HCL 500 MG TAB PO SCH ×2 (09:21→20:29)
[2016-07-24] MEDS: PANTOPRAZOLE SOD 20 MG DELAYED RELEASE TAB PO SCH (09:21)
[2016-07-24] MEDS: BENZTROPINE MESYLATE 1 MG TAB PO SCH ×2 (09:22→20:29)
[2016-07-24] MEDS: HALOPERIDOL 2 MG TAB PO SCH ×2 (09:22→20:28)
[2016-07-24] MEDS: ESCITALOPRAM OXALATE 20 MG TAB PO SCH (09:22)
[2016-07-24] MEDS: ENALAPRIL MALEATE 10 MG TAB PO SCH (09:22)
--- NOTE | 2016-07-24 11:59 | HHI.PYPN ---
Subjective Remarks Patient seen and examined with nursing staff. Chart reviewed. Case discussed with nursing staff who reports patient was pushing boundaries last evening when he was denied juice and debbie juanis because of blood sugar issues. On my examination today, the patient remains fixated on the juice/debbie juanis issue. I have discussed the matter with nursing staff and note that we do not routinely stock sugar-free debbie juanis. I have asked the clinical coordinator to ensure that this is done so that the patient may be provided with debbie juanis while staying within his blood sugar goals. Otherwise, patient has no issues and is in no distress. Review of Systems Other No physical complaints today Objective Alert: Yes [place]: Person, Place Mood: Calm Affect: Blunted Memory Intact: Comment (Not formally assessed) Hallucinations: Other (No AVH) Delusions: No Delusion Type: Other (no delusions) Suicidal: Ideation (no SI) Homicidal: Ideation (no HI) Insight/Judgement Poor Remarks Grooming is fair Labs Labs reviewed. No new labs. Vitals/IOs Vital Signs Date Time Temp Pulse Resp B/P Pulse Ox O2 Delivery O2 Flow Rate FiO2 07/24/16 06:13 98.6 89 20 143/68 96 Assessment & Plan Problem List: (1) Schizoaffective disorder, bipolar type ICD Code: F25.0 Assessment & Plan Continue current psychiatric medications as ordered. Continue other medications and care as ordered. Justification for Cont. Inpt. Risk for decompensation in a lower level of care. Discharge Planning Placement versus [facility]. Request HC Surrog/Guard Advoc?: Yes Chetan Cuellar MD Jul 24, 2016 11:59
[2016-07-24 19:39] VITALS: BP 113/60; PULSE 60; RESP 18; TEMP 98.6; O2SAT 97
[2016-07-24] MEDS: LITHIUM CARBONATE 300 MG TAB PO SCH (20:28)
[2016-07-24] MEDS: MELATONIN 5 MG TAB PO SCH (20:29)
[2016-07-24] MEDS: DIVALPROEX DR 500 MG TABEC PO SCH (20:30)
[2016-07-24] MEDS: LIDOCAINE HCL 5% PATCH TD SCH (21:13)
[2016-07-25 05:24] VITALS: BP 118/64; PULSE 60; RESP 18; TEMP 97; O2SAT 95
[2016-07-25] MEDS: INSULIN ASPART SUPPLEMENTAL SCALE SQ SCH ×4 (06:50→20:33)
[2016-07-25] MEDS: levOCARNitine 10% ORAL SOLN 118 ML BTL PO SCH ×3 (09:00→17:12)
[2016-07-25] MEDS: REMOVE OLD LIDOCAINE PATCH TD SCH (09:00)
[2016-07-25] MEDS: ESCITALOPRAM OXALATE 20 MG TAB PO SCH (09:06)
[2016-07-25] MEDS: PANTOPRAZOLE SOD 20 MG DELAYED RELEASE TAB PO SCH (09:06)
[2016-07-25] MEDS: BENZTROPINE MESYLATE 1 MG TAB PO SCH ×2 (09:06→20:32)
[2016-07-25] MEDS: ENALAPRIL MALEATE 10 MG TAB PO SCH (09:07)
[2016-07-25] MEDS: HALOPERIDOL 2 MG TAB PO SCH ×2 (09:07→20:31)
[2016-07-25] MEDS: metFORMIN HCL 500 MG TAB PO SCH ×2 (09:07→20:31)
[2016-07-25] MEDS: LITHIUM CARBONATE 300 MG CAP PO SCH (09:08)
--- NOTE | 2016-07-25 12:13 | HHI.PYPN ---
Subjective Remarks Pt seen and discussed with staff. Pt reports that he is doing well on current medications and denies side effects. No aggression or agitation. He reports that mood is good and he denies SI/HI. Objective Alert: Yes [place]: Person, Place Mood: Calm Affect: Blunted Memory Intact: Comment (Not formally assessed) Hallucinations: Other (No AVH) Delusions: No Delusion Type: Other (no delusions) Suicidal: Ideation (no SI) Homicidal: Ideation (no HI) Insight/Judgement poor Vitals/IOs Vital Signs Date Time Temp Pulse Resp B/P Pulse Ox O2 Delivery O2 Flow Rate FiO2 07/25/16 05:24 97.0 60 18 118/64 95 Assessment & Plan Problem List: (1) Schizoaffective disorder, bipolar type ICD Code: F25.0 Assessment & Plan Continue current tx plan.Estimated LOS: days Justification for Cont. Inpt. risk of decompensation Request HC Surrog/Guard Advoc?: Yes Marychuy Yoo MD Jul 25, 2016 12:13
[2016-07-25 19:38] VITALS: BP 133/64; PULSE 75; RESP 18; TEMP 99; O2SAT 95
[2016-07-25] MEDS: ACETAMINOPHEN/HYDROcodone 325 MG/5 MG TAB PO PRN (19:55)
[2016-07-25] MEDS: LITHIUM CARBONATE 300 MG TAB PO SCH (20:31)
[2016-07-25] MEDS: DIVALPROEX DR 500 MG TABEC PO SCH (20:32)
[2016-07-25] MEDS: MELATONIN 5 MG TAB PO SCH (20:32)
[2016-07-25] MEDS: LIDOCAINE HCL 5% PATCH TD SCH (21:00)
[2016-07-25] MEDS: IBUPROFEN 600 MG TAB PO PRN (21:36)
[2016-07-25] MEDS: hydrOXYzine HCL 50 MG TAB PO PRN (21:36)
[2016-07-26] MEDS: ACETAMINOPHEN/HYDROcodone 325 MG/5 MG TAB PO PRN ×3 (01:37→13:44)
[2016-07-26 05:19] VITALS: BP 130/65; PULSE 72; RESP 16; TEMP 97.7
[2016-07-26] MEDS: INSULIN ASPART SUPPLEMENTAL SCALE SQ SCH ×4 (06:45→20:13)
[2016-07-26] MEDS: REMOVE OLD LIDOCAINE PATCH TD SCH (09:00)
[2016-07-26 09:41] VITALS: BP 130/65; PULSE 72; RESP 16; TEMP 97.7; O2SAT 97
[2016-07-26] MEDS: metFORMIN HCL 500 MG TAB PO SCH ×2 (09:52→20:12)
[2016-07-26] MEDS: ESCITALOPRAM OXALATE 20 MG TAB PO SCH (09:53)
[2016-07-26] MEDS: ENALAPRIL MALEATE 10 MG TAB PO SCH (09:53)
[2016-07-26] MEDS: PANTOPRAZOLE SOD 20 MG DELAYED RELEASE TAB PO SCH (09:53)
[2016-07-26] MEDS: BENZTROPINE MESYLATE 1 MG TAB PO SCH ×2 (09:53→20:12)
[2016-07-26] MEDS: HALOPERIDOL 2 MG TAB PO SCH ×2 (09:53→20:12)
[2016-07-26] MEDS: levOCARNitine 10% ORAL SOLN 118 ML BTL PO SCH ×3 (09:54→18:00)
[2016-07-26] MEDS: LITHIUM CARBONATE 300 MG CAP PO SCH (09:54)
--- NOTE | 2016-07-26 14:16 | HHI.PYPN ---
Subjective Remarks Pt seen and discussed with staff. Pt reports that he is feeling well and is focused on discharge to [facility]. He is compliant with treatment. No medication side effects. No disruptive behavior. Objective Alert: Yes [place]: Person, Place Mood: Calm Affect: Restricted Memory Intact: Comment (Not formally assessed) Hallucinations: Other (No AVH) Delusions: No Delusion Type: Other (no delusions) Suicidal: Ideation (no SI) Homicidal: Ideation (no HI) Insight/Judgement limited Vitals/IOs Vital Signs Date Time Temp Pulse Resp B/P Pulse Ox O2 Delivery O2 Flow Rate FiO2 07/26/16 09:41 97.7 72 16 130/65 97 Assessment & Plan Problem List: (1) Schizoaffective disorder, bipolar type ICD Code: F25.0 Assessment & Plan Continue current tx plan. Estimated LOS: days Justification for Cont. Inpt. risk of decompensation Request HC Surrog/Guard Advoc?: Yes Marychuy Yoo MD Jul 26, 2016 14:16
[2016-07-26 19:19] VITALS: BP 142/65; PULSE 60; RESP 16; TEMP 97.2; O2SAT 98
[2016-07-26] MEDS: MELATONIN 5 MG TAB PO SCH (20:12)
[2016-07-26] MEDS: LITHIUM CARBONATE 300 MG TAB PO SCH (20:12)
[2016-07-26] MEDS: DIVALPROEX DR 500 MG TABEC PO SCH (20:12)
[2016-07-26] MEDS: LIDOCAINE HCL 5% PATCH TD SCH (20:16)
[2016-07-27 06:01] VITALS: BP 143/72; PULSE 74; RESP 18; TEMP 97.4; O2SAT 98
[2016-07-27] MEDS: INSULIN ASPART SUPPLEMENTAL SCALE SQ SCH ×4 (06:22→20:33)
[2016-07-27] MEDS: BENZTROPINE MESYLATE 1 MG TAB PO SCH ×2 (08:37→20:27)
[2016-07-27] MEDS: LITHIUM CARBONATE 300 MG CAP PO SCH (08:37)
[2016-07-27] MEDS: HALOPERIDOL 2 MG TAB PO SCH ×2 (08:38→20:27)
[2016-07-27] MEDS: ENALAPRIL MALEATE 10 MG TAB PO SCH (08:38)
[2016-07-27] MEDS: ESCITALOPRAM OXALATE 20 MG TAB PO SCH (08:38)
[2016-07-27] MEDS: PANTOPRAZOLE SOD 20 MG DELAYED RELEASE TAB PO SCH (08:38)
[2016-07-27] MEDS: metFORMIN HCL 500 MG TAB PO SCH ×2 (08:38→20:26)
[2016-07-27] MEDS: levOCARNitine 10% ORAL SOLN 118 ML BTL PO SCH ×3 (08:39→17:31)
[2016-07-27] MEDS: REMOVE OLD LIDOCAINE PATCH TD SCH (09:00)
--- NOTE | 2016-07-27 12:05 | HHI.PYPN ---
Subjective Remarks Patient seen and examined With counselor and graphic design professor. Chart reviewed. Case discussed with nursing staff who reports patient had a visit with his sister over the weekend. He was provided with some diet soda as we had discussed, but he has some trouble controlling his intake and would drink a whole 2 L bottle if left to his own devices. On my examination today, the patient complements his nurse saying that she is taking very good care of him. He wants independent living, and we discuss that the plan is for assisted living as a transition hopefully eventually to independent living. He denies feeling depressed. Denies audiovisual hallucinations. Denies side effects from medications, and there is no evident tremor on examination today. Review of Systems ROS Limitations: Poor Historian Other No physical complaints today Objective Alert: Yes [place]: Person, Place Mood: Calm Affect: Euthymic Memory Intact: Comment (Not formally assessed) Hallucinations: Other (No AVH) Delusions: No Delusion Type: Other (no delusional material) Suicidal: Ideation (no SI) Homicidal: Ideation (no HI) Insight/Judgement Poor Remarks No motoric abnormalities noted Labs Labs reviewed. No new labs. Vitals/IOs Vital Signs Date Time Temp Pulse Resp B/P Pulse Ox O2 Delivery O2 Flow Rate FiO2 07/27/16 06:01 97.4 74 18 143/72 98 Assessment & Plan Problem List: (1) Schizoaffective disorder, bipolar type ICD Code: F25.0 Assessment & Plan Patient appears to be doing well from a psychiatric standpoint. Continue current medications and care as ordered. Justification for Cont. Inpt. Risk for decompensation. Discharge Planning Placement versus state psychiatric hospitalization. Patient's nurse has been able to find some assisted living facilities that specialize in the care of the hard of hearing. Request HC Surrog/Guard Advoc?: Yes Chetan Cuellar MD Jul 27, 2016 12:05
[2016-07-27] MEDS: DIVALPROEX DR 500 MG TABEC PO SCH (20:25)
[2016-07-27] MEDS: LIDOCAINE HCL 5% PATCH TD SCH (20:25)
[2016-07-27] MEDS: LORazepam 1 MG TAB PO PRN (20:26)
[2016-07-27] MEDS: LITHIUM CARBONATE 300 MG TAB PO SCH (20:26)
[2016-07-27] MEDS: ACETAMINOPHEN/HYDROcodone 325 MG/5 MG TAB PO PRN (20:26)
[2016-07-27] MEDS: diphenhydrAMINE HCL 50 MG CAP - HS PRN PO (20:26)
[2016-07-27] MEDS: MELATONIN 5 MG TAB PO SCH (20:27)
[2016-07-27 21:53] VITALS: BP 133/51; PULSE 75; RESP 18; TEMP 98.1; O2SAT 98
[2016-07-28 05:10] VITALS: BP 128/61; PULSE 72; RESP 17; TEMP 98.2; O2SAT 93
[2016-07-28] MEDS: INSULIN ASPART SUPPLEMENTAL SCALE SQ SCH ×4 (06:08→20:27)
[2016-07-28] MEDS: levOCARNitine 10% ORAL SOLN 118 ML BTL PO SCH ×3 (09:00→18:00)
[2016-07-28] MEDS: REMOVE OLD LIDOCAINE PATCH TD SCH (09:00)
--- NOTE | 2016-07-28 09:16 | HHI.PYPN ---
Subjective Remarks Patient seen and examined in treatment team. Chart reviewed. Case discussed in treatment team with nurse, counselor, and OT. Also present was algorithm design engineer. On my examination today, patient is fixated on pursuing independent living. Treatment team reinforces the need for assisted living at least initially, with hopeful eventual transition to some form of independent living. No issues with mood or psychosis at this time. No side effects from meds. Review of Systems Other No physical complaints today Objective Alert: Yes [place]: Person, Place Mood: Calm Affect: Blunted Memory Intact: Comment (Not formally assessed) Hallucinations: Other (none) Delusions: No Delusion Type: Other (no delusions) Suicidal: Ideation (no SI) Homicidal: Ideation (no HI) Insight/Judgement Poor Remarks No motoric abnormalities noted today Labs Labs reviewed. No new labs. Vitals/IOs Vital Signs Date Time Temp Pulse Resp B/P Pulse Ox O2 Delivery O2 Flow Rate FiO2 07/28/16 05:10 98.2 72 17 128/61 93 Assessment & Plan Problem List: (1) Schizoaffective disorder, bipolar type ICD Code: F25.0 Assessment & Plan Continue current psychiatric medications as ordered. Continue other medications as ordered. Continue other care as ordered. Justification for Cont. Inpt. Risk for decompensation Discharge Planning Placement versus state psychiatric hospital. Case discussed with counselor. Request HC Surrog/Guard Advoc?: Yes Chetan Cuellar MD Jul 28, 2016 09:16
[2016-07-28] MEDS: LITHIUM CARBONATE 300 MG CAP PO SCH (09:51)
[2016-07-28] MEDS: metFORMIN HCL 500 MG TAB PO SCH ×2 (09:51→20:17)
[2016-07-28] MEDS: ENALAPRIL MALEATE 10 MG TAB PO SCH (09:51)
[2016-07-28] MEDS: BENZTROPINE MESYLATE 1 MG TAB PO SCH ×2 (09:51→20:17)
[2016-07-28] MEDS: HALOPERIDOL 2 MG TAB PO SCH ×2 (09:51→20:27)
[2016-07-28] MEDS: PANTOPRAZOLE SOD 20 MG DELAYED RELEASE TAB PO SCH (09:54)
[2016-07-28] MEDS: ESCITALOPRAM OXALATE 20 MG TAB PO SCH (09:54)
[2016-07-28] MEDS: DIVALPROEX DR 500 MG TABEC PO SCH (20:16)
[2016-07-28] MEDS: MELATONIN 5 MG TAB PO SCH (20:16)
[2016-07-28] MEDS: LITHIUM CARBONATE 300 MG TAB PO SCH (20:17)
[2016-07-28] MEDS: LIDOCAINE HCL 5% PATCH TD SCH (20:50)
[2016-07-28 21:32] VITALS: BP 138/63; PULSE 75; RESP 18; TEMP 97.5; O2SAT 96
[2016-07-29 06:09] VITALS: BP 124/67; PULSE 87; RESP 17; TEMP 98.7; O2SAT 94
[2016-07-29] MEDS: INSULIN ASPART SUPPLEMENTAL SCALE SQ SCH ×4 (06:30→21:00)
[2016-07-29 06:36] VITALS: BP 124/67; PULSE 87; RESP 17; TEMP 98.7; O2SAT 94
[2016-07-29] MEDS: REMOVE OLD LIDOCAINE PATCH TD SCH (09:00)
[2016-07-29] MEDS: levOCARNitine 10% ORAL SOLN 118 ML BTL PO SCH ×3 (09:00→18:00)
[2016-07-29] MEDS: metFORMIN HCL 500 MG TAB PO SCH ×2 (09:15→20:25)
[2016-07-29] MEDS: LITHIUM CARBONATE 300 MG CAP PO SCH (09:15)
[2016-07-29] MEDS: LORazepam 1 MG TAB PO PRN (09:16)
[2016-07-29] MEDS: HALOPERIDOL 2 MG TAB PO SCH ×2 (09:16→20:25)
[2016-07-29] MEDS: BENZTROPINE MESYLATE 1 MG TAB PO SCH ×2 (09:16→20:27)
[2016-07-29] MEDS: ENALAPRIL MALEATE 10 MG TAB PO SCH (09:16)
[2016-07-29] MEDS: PANTOPRAZOLE SOD 20 MG DELAYED RELEASE TAB PO SCH (09:16)
[2016-07-29] MEDS: ACETAMINOPHEN/HYDROcodone 325 MG/5 MG TAB PO PRN ×2 (09:17→19:36)
[2016-07-29] MEDS: ESCITALOPRAM OXALATE 20 MG TAB PO SCH (09:17)
--- NOTE | 2016-07-29 11:42 | HHI.PYPN ---
Subjective Remarks Patient seen and examined with counselor in alarm signal operator. Chart reviewed. Case discussed with nursing staff who reports patient is becoming more and more discharge focused. On my examination today, the patient is calm and pleasant. He says that his medications seem about right. His main goal remains independent living and we reinforced the interval step of assisted living prior to full independent living. No side effects from medications. Review of Systems ROS Limitations: Poor Historian Other No somatic complaints today Objective Alert: Yes [place]: Person, Place Mood: Calm (remains calm) Affect: Blunted Memory Intact: Comment (not assessed today) Hallucinations: Other (none) Delusions: No Delusion Type: Other (no delusional material) Suicidal: Ideation (no SI) Homicidal: Ideation (no HI) Insight/Judgement Poor Remarks Thought processes fairly linear Labs Labs reviewed. No new labs. Vitals/IOs Vital Signs Date Time Temp Pulse Resp B/P Pulse Ox O2 Delivery O2 Flow Rate FiO2 07/29/16 06:36 98.7 87 17 124/67 94 Assessment & Plan Problem List: (1) Schizoaffective disorder, bipolar type ICD Code: F25.0 Assessment & Plan Continue current psychotropics as ordered. Continue other medications and care as ordered. Justification for Cont. Inpt. Risk for decompensation Discharge Planning Placement versus [facility] psychiatric [facility] Request HC Surrog/Guard Advoc?: Yes Chetan Cuellar MD Jul 29, 2016 11:42
[2016-07-29 19:28] VITALS: BP 123/61; PULSE 75; RESP 16; TEMP 98.5; O2SAT 95
[2016-07-29] MEDS: DIVALPROEX DR 500 MG TABEC PO SCH (20:26)
[2016-07-29] MEDS: LITHIUM CARBONATE 300 MG TAB PO SCH (20:27)
[2016-07-29] MEDS: MELATONIN 5 MG TAB PO SCH (20:28)
[2016-07-29] MEDS: LIDOCAINE HCL 5% PATCH TD SCH (21:00)
[2016-07-30] MEDS: ACETAMINOPHEN/HYDROcodone 325 MG/5 MG TAB PO PRN ×2 (01:11→06:48)
[2016-07-30] MEDS: hydrOXYzine HCL 50 MG TAB PO PRN (02:37)
[2016-07-30] MEDS: LORazepam 1 MG TAB PO PRN (02:38)
[2016-07-30 05:15] VITALS: BP 145/66; PULSE 70; RESP 16; TEMP 98.3; O2SAT 96
[2016-07-30 06:22] VITALS: BP 145/66; PULSE 70; RESP 16; TEMP 98.3
[2016-07-30] MEDS: INSULIN ASPART SUPPLEMENTAL SCALE SQ SCH ×4 (07:00→21:59)
[2016-07-30] MEDS: LITHIUM CARBONATE 300 MG CAP PO SCH (07:53)
[2016-07-30] MEDS: ESCITALOPRAM OXALATE 20 MG TAB PO SCH (07:53)
[2016-07-30] MEDS: PANTOPRAZOLE SOD 20 MG DELAYED RELEASE TAB PO SCH (07:53)
[2016-07-30] MEDS: metFORMIN HCL 500 MG TAB PO SCH ×2 (07:53→21:57)
[2016-07-30] MEDS: BENZTROPINE MESYLATE 1 MG TAB PO SCH ×2 (07:54→21:57)
[2016-07-30] MEDS: ENALAPRIL MALEATE 10 MG TAB PO SCH (07:54)
[2016-07-30] MEDS: levOCARNitine 10% ORAL SOLN 118 ML BTL PO SCH ×3 (07:55→18:00)
[2016-07-30] MEDS: HALOPERIDOL 2 MG TAB PO SCH ×2 (09:00→21:58)
[2016-07-30] MEDS: REMOVE OLD LIDOCAINE PATCH TD SCH (09:00)
--- NOTE | 2016-07-30 10:31 | HHI.PYPN ---
Subjective Remarks Patient seen and examined with counselor. language interpreter also present. Chart reviewed and case discussed with nursing staff. On my examination today, the patient has no particular complaints. He does wish that we could simply discharge him to independent living. We discuss again the issues with this discharge plan. No side effects from medications. Review of Systems Other No somatic complaints today. Objective Alert: Yes [place]: Person, Place Mood: Calm Affect: Blunted Memory Intact: Comment (Not formally assessed today) Hallucinations: Other (no AVH) Delusions: No Delusion Type: Other (no delusions.) Suicidal: Ideation (No suicidal ideation) Homicidal: Ideation (No homicidal ideation) Insight/Judgement Poor Labs Labs reviewed. No new labs. Vitals/IOs Vital Signs Date Time Temp Pulse Resp B/P Pulse Ox O2 Delivery O2 Flow Rate FiO2 07/30/16 06:22 98.3 70 16 145/66 07/30/16 05:15 96 Assessment & Plan Problem List: (1) Schizoaffective disorder, bipolar type ICD Code: F25.0 Assessment & Plan Continue current psychiatric medications as ordered. Check an updated set of basic labs. Continue other medications and care as ordered. Justification for Cont. Inpt. Risk for decompensation. Discharge Planning Placement versus state hospitalization. Request HC Surrog/Guard Advoc?: Yes Chetan Cuellar MD Jul 30, 2016 10:31
[2016-07-30 20:30] VITALS: BP 123/64; PULSE 97; RESP 17; TEMP 98.5; O2SAT 97
[2016-07-30 20:31] VITALS: TEMP 88.3
[2016-07-30] MEDS: LIDOCAINE HCL 5% PATCH TD SCH (21:00)
[2016-07-30] MEDS: LITHIUM CARBONATE 300 MG TAB PO SCH (21:57)
[2016-07-30] MEDS: DIVALPROEX DR 500 MG TABEC PO SCH (21:57)
[2016-07-30] MEDS: MELATONIN 5 MG TAB PO SCH (21:57)
[2016-07-31 06:21] VITALS: BP 133/64; PULSE 74; RESP 18; TEMP 98.4; O2SAT 95
[2016-07-31] MEDS: INSULIN ASPART SUPPLEMENTAL SCALE SQ SCH ×4 (06:41→21:00)
[2016-07-31 07:52] LABS: AUTOMATED NEUTROPHIL # 8.2 TH/MM3 (1.8-7.7); BASOPHIL # 0.1 TH/MM3 (0-0.2); BASOPHIL % 1.1 % (0.0-2.0); EOSINOPHIL # 0.6 TH/MM3 (0-0.4); EOSINOPHIL % 4.1 % (0.0-4.0); HEMATOCRIT 33.2 % (39.0-51.0); HEMO FLAGS DIFF FINAL; LYMPH % 25.6 % (9.0-44.0); LYMPHOCYTE # 3.5 TH/MM3 (1.0-4.8); MEAN CELL VOLUME 83.4 FL (80.0-100.0); MEAN CORPUSCULAR HEMOGLOBIN 27.5 PG (27.0-34.0); MONO % 8.5 % (0.0-8.0); NEUT % 60.7 % (16.0-70.0); PLATELET COUNT 200 TH/MM3 (150-450); RED BLOOD COUNT 3.98 MIL/MM3 (4.50-5.90); RED CELL DISTRIBUTION WIDTH 13.9 % (11.6-17.2); WHITE BLOOD COUNT 13.5 TH/MM3 (4.0-11.0)
[2016-07-31 08:15] LABS: ALT (GPT) 41 U/L (12-78); ANION GAP 10 MEQ/L (5-15); AST (GOT) 21 U/L (15-37); BICARBONATE 23.4 MEQ/L (21.0-32.0); BLOOD UREA NITROGEN 20 MG/DL (7-18); CHLORIDE 102 MEQ/L (98-107); GLOMERULAR FILTRATION RATE 55 ML/MIN (>89); POTASSIUM 4.8 MEQ/L (3.5-5.1); SODIUM (NA) 135 MEQ/L (136-145)
[2016-07-31 08:17] LABS: ALKALINE PHOSPHATASE 77 U/L (45-117); TOTAL BILIRUBIN ADULT 0.3 MG/DL (0.2-1.0)
[2016-07-31] MEDS: levOCARNitine 10% ORAL SOLN 118 ML BTL PO SCH ×3 (08:39→17:50)
[2016-07-31] MEDS: ENALAPRIL MALEATE 10 MG TAB PO SCH (08:40)
[2016-07-31] MEDS: metFORMIN HCL 500 MG TAB PO SCH ×2 (08:40→21:36)
[2016-07-31] MEDS: ESCITALOPRAM OXALATE 20 MG TAB PO SCH (08:40)
[2016-07-31] MEDS: LITHIUM CARBONATE 300 MG CAP PO SCH (08:40)
[2016-07-31] MEDS: HALOPERIDOL 2 MG TAB PO SCH (08:40)
[2016-07-31] MEDS: BENZTROPINE MESYLATE 1 MG TAB PO SCH ×2 (08:41→21:37)
[2016-07-31] MEDS: PANTOPRAZOLE SOD 20 MG DELAYED RELEASE TAB PO SCH (08:41)
[2016-07-31] MEDS: REMOVE OLD LIDOCAINE PATCH TD SCH (09:00)
--- NOTE | 2016-07-31 10:14 | HHI.PYPN ---
Subjective Remarks Patient seen and examined with counselor. tape sewing machine operator was also present. Chart reviewed. Case discussed with nursing staff. On my examination today, patient seems to be experiencing recrudescence of his delusions regarding family in [place]. He says that he has a son, age 28 who works for the [employer] and who is coming to visit him from [place]. He also notes that he is a grandfather with 14 grandchildren. Otherwise, the patient has no particular concerns and says that he is "quiet, not doing too much." Denies side effects from current medications. Review of Systems ROS Limitations: Poor Historian Other No physical complaints today Objective Alert: Yes [place]: Person, Place Mood: Calm Affect: Euthymic Memory Intact: Comment (Not formally assessed today) Hallucinations: Other (No AVH) Delusions: Yes Delusion Type: Paranoid Suicidal: Ideation (No SI) Homicidal: Ideation (No HI) Insight/Judgement Poor Remarks Thought processes fairly linear. No motoric abnormalities noted. Labs Test 07/31/16 07:25 White Blood Count 13.5 TH/MM3 Red Blood Count 3.98 MIL/MM3 Hemoglobin 11.0 GM/DL Hematocrit 33.2 % Mean Corpuscular Volume 83.4 FL Mean Corpuscular Hemoglobin 27.5 PG Mean Corpuscular Hemoglobin 33.0 % Concent Red Cell Distribution Width 13.9 % Platelet Count 200 TH/MM3 Mean Platelet Volume 8.2 FL Neutrophils (%) (Auto) 60.7 % Lymphocytes (%) (Auto) 25.6 % Monocytes (%) (Auto) 8.5 % Eosinophils (%) (Auto) 4.1 % Basophils (%) (Auto) 1.1 % Neutrophils # (Auto) 8.2 TH/MM3 Lymphocytes # (Auto) 3.5 TH/MM3 Monocytes # (Auto) 1.2 TH/MM3 Eosinophils # (Auto) 0.6 TH/MM3 Basophils # (Auto) 0.1 TH/MM3 CBC Comment DIFF FINAL Differential Comment Sodium Level 135 MEQ/L Potassium Level 4.8 MEQ/L Chloride Level 102 MEQ/L Carbon Dioxide Level 23.4 MEQ/L Anion Gap 10 MEQ/L Blood Urea Nitrogen 20 MG/DL Creatinine 1.34 MG/DL Estimat Glomerular Filtration 55 ML/MIN Rate Random Glucose 165 MG/DL Calcium Level 9.0 MG/DL Total Bilirubin 0.3 MG/DL Aspartate Amino Transf 21 U/L (AST/SGOT) Alanine Aminotransferase 41 U/L (ALT/SGPT) Alkaline Phosphatase 77 U/L Ammonia 20 MCMOL/L Total Protein 7.5 GM/DL Albumin 3.2 GM/DL Valproic Acid (Depakene) Level 89 MCG/ML [place] Level 0.9 MEQ/L Labs reviewed. Ongoing mild leukocytosis, perhaps a benign neutrophilia related to lithium treatment as there is no evidence presently of infection. Anemia is stable. GFR somewhat decreased. Depakote and lithium level are within their respective therapeutic ranges. Vitals/IOs Vital Signs Date Time Temp Pulse Resp B/P Pulse Ox O2 Delivery O2 Flow Rate FiO2 07/31/16 06:21 98.4 74 18 133/64 95 Assessment & Plan Problem List: (1) Schizoaffective disorder, bipolar type ICD Code: F25.0 Assessment & Plan Patient with some reemergence of his paranoid delusions. Thought process is linear and there is no evidence of a delirium that might explain both the leukocytosis and the paranoia. I will gently titrate his Haldol. I will encourage hydration and recheck a BMP after the weekend to address his decreased GFR. Continue other medications and care as ordered. Justification for Cont. Inpt. Impairments in reality testing. Risk for decompensation. Discharge Planning Placement versus state psychiatric hospitalization Request HC Surrog/Guard Advoc?: Yes Chetan Cuellar MD Jul 31, 2016 10:14
[2016-07-31 20:02] VITALS: BP 140/65; PULSE 75; RESP 18; TEMP 97.5; O2SAT 98
[2016-07-31] MEDS: LIDOCAINE HCL 5% PATCH TD SCH (21:00)
[2016-07-31] MEDS: DIVALPROEX DR 500 MG TABEC PO SCH (21:35)
[2016-07-31] MEDS: HALOPERIDOL 5 MG TAB PO SCH (21:36)
[2016-07-31] MEDS: MELATONIN 5 MG TAB PO SCH (21:36)
[2016-07-31] MEDS: LITHIUM CARBONATE 300 MG TAB PO SCH (21:36)
[2016-08-01 06:19] VITALS: BP 131/61; PULSE 76; RESP 18; TEMP 99.5; O2SAT 94
[2016-08-01] MEDS: INSULIN ASPART SUPPLEMENTAL SCALE SQ SCH ×4 (06:27→21:00)
[2016-08-01] MEDS: ESCITALOPRAM OXALATE 20 MG TAB PO SCH (08:19)
[2016-08-01] MEDS: PANTOPRAZOLE SOD 20 MG DELAYED RELEASE TAB PO SCH (08:19)
[2016-08-01] MEDS: BENZTROPINE MESYLATE 1 MG TAB PO SCH ×2 (08:20→20:39)
[2016-08-01] MEDS: HALOPERIDOL 5 MG TAB PO SCH ×2 (08:20→20:40)
[2016-08-01] MEDS: LITHIUM CARBONATE 300 MG CAP PO SCH (08:21)
[2016-08-01] MEDS: ENALAPRIL MALEATE 10 MG TAB PO SCH (08:21)
[2016-08-01] MEDS: metFORMIN HCL 500 MG TAB PO SCH ×2 (08:21→20:40)
[2016-08-01] MEDS: REMOVE OLD LIDOCAINE PATCH TD SCH (08:23)
[2016-08-01] MEDS: levOCARNitine 10% ORAL SOLN 118 ML BTL PO SCH ×3 (08:30→18:00)
--- NOTE | 2016-08-01 16:13 | HHI.PYPN ---
Subjective Remarks Patient was seen and case discussed with nursing. Patient is interviewed with certified court/medical interpreter. She denies auditory visual hallucinations. He has no bizarre delusions such as that [employer] or numerous grandchildren. Denies suicidal ideations thought intent or plan. Perseverative on where he will be discharged. Objective Alert: Yes [place]: Person, Place Mood: Calm Affect: Euthymic Memory Intact: Comment (Not formally assessed today) Hallucinations: Other (No AVH) Delusions: Yes Delusion Type: Paranoid Suicidal: Ideation (No SI) Homicidal: Ideation (No HI) Insight/Judgement Poor Vitals/IOs Vital Signs Date Time Temp Pulse Resp B/P Pulse Ox O2 Delivery O2 Flow Rate FiO2 08/01/16 06:19 99.5 76 18 131/61 94 Assessment & Plan Problem List: (1) Schizoaffective disorder, bipolar type ICD Code: F25.0 Assessment & Plan Continue current treatment plan Justification for Cont. Inpt. Patient will decompensate in a less restrictive setting Request HC Surrog/Guard Advoc?: Yes London Fontaine DO Aug 01, 2016 16:13
[2016-08-01] MEDS: ACETAMINOPHEN/HYDROcodone 325 MG/5 MG TAB PO PRN (19:34)
[2016-08-01 19:38] VITALS: BP 118/59; PULSE 71; RESP 18; TEMP 98.1; O2SAT 92
[2016-08-01] MEDS: LORazepam 1 MG TAB PO PRN (20:37)
[2016-08-01] MEDS: MELATONIN 5 MG TAB PO SCH (20:39)
[2016-08-01] MEDS: DIVALPROEX DR 500 MG TABEC PO SCH (20:39)
[2016-08-01] MEDS: diphenhydrAMINE HCL 50 MG CAP - HS PRN PO (20:39)
[2016-08-01] MEDS: LITHIUM CARBONATE 300 MG TAB PO SCH (20:40)
[2016-08-01] MEDS: LIDOCAINE HCL 5% PATCH TD SCH (21:00)
[2016-08-02] MEDS: ACETAMINOPHEN/HYDROcodone 325 MG/5 MG TAB PO PRN ×3 (01:00→20:54)
[2016-08-02 05:48] VITALS: BP 136/66; PULSE 73; RESP 18; TEMP 97.3; O2SAT 96
[2016-08-02] MEDS: INSULIN ASPART SUPPLEMENTAL SCALE SQ SCH ×4 (06:43→20:58)
[2016-08-02] MEDS: ENALAPRIL MALEATE 10 MG TAB PO SCH (08:43)
[2016-08-02] MEDS: metFORMIN HCL 500 MG TAB PO SCH ×2 (08:43→20:51)
[2016-08-02] MEDS: BENZTROPINE MESYLATE 1 MG TAB PO SCH ×2 (08:43→20:52)
[2016-08-02] MEDS: LITHIUM CARBONATE 300 MG CAP PO SCH (08:44)
[2016-08-02] MEDS: PANTOPRAZOLE SOD 20 MG DELAYED RELEASE TAB PO SCH (08:44)
[2016-08-02] MEDS: HALOPERIDOL 5 MG TAB PO SCH ×2 (08:44→20:52)
[2016-08-02] MEDS: ESCITALOPRAM OXALATE 20 MG TAB PO SCH (08:44)
[2016-08-02] MEDS: levOCARNitine 10% ORAL SOLN 118 ML BTL PO SCH ×3 (08:45→18:00)
[2016-08-02] MEDS: REMOVE OLD LIDOCAINE PATCH TD SCH (09:00)
--- NOTE | 2016-08-02 13:33 | HHI.PYPN ---
Subjective Remarks Patient was seen and case discussed with nursing. Patient is pleasant and cooperative with exam. Compliant with his medications. Behaving well oriented. Continues to be perseverative about discharge. Denies auditory or visual hallucinations. Denies suicidal ideations intent or plan Objective Alert: Yes [place]: Person, Place Mood: Calm Affect: Euthymic Memory Intact: Comment (Not formally assessed today) Hallucinations: Other (No AVH) Delusions: Yes Delusion Type: Paranoid Suicidal: Ideation (No SI) Homicidal: Ideation (No HI) Insight/Judgement Poor Vitals/IOs Vital Signs Date Time Temp Pulse Resp B/P Pulse Ox O2 Delivery O2 Flow Rate FiO2 08/02/16 05:48 97.3 73 18 136/66 96 Assessment & Plan Problem List: (1) Schizoaffective disorder, bipolar type ICD Code: F25.0 Assessment & Plan Continue current treatment plan Justification for Cont. Inpt. Patient will decompensate in a less restrictive setting Request HC Surrog/Guard Advoc?: Yes London Fontaine DO Aug 02, 2016 13:33
[2016-08-02 19:43] VITALS: BP 80/45; PULSE 62; RESP 18; TEMP 97.4; O2SAT 93
[2016-08-02 20:25] VITALS: BP 129/58; PULSE 69
[2016-08-02 20:50] VITALS: BP 129/68; PULSE 69
[2016-08-02] MEDS: MELATONIN 5 MG TAB PO SCH (20:51)
[2016-08-02] MEDS: DIVALPROEX DR 500 MG TABEC PO SCH (20:51)
[2016-08-02] MEDS: LORazepam 1 MG TAB PO PRN (20:51)
[2016-08-02] MEDS: diphenhydrAMINE HCL 50 MG CAP - HS PRN PO (20:51)
[2016-08-02] MEDS: LITHIUM CARBONATE 300 MG TAB PO SCH (20:52)
[2016-08-02] MEDS: LIDOCAINE HCL 5% PATCH TD SCH (20:54)
[2016-08-03 05:46] VITALS: BP 135/66; PULSE 17; RESP 17; TEMP 98; O2SAT 94
[2016-08-03] MEDS: INSULIN ASPART SUPPLEMENTAL SCALE SQ SCH ×4 (07:00→20:01)
[2016-08-03] MEDS: REMOVE OLD LIDOCAINE PATCH TD SCH (09:00)
[2016-08-03 09:43] LABS: BICARBONATE 27.1 MEQ/L (21.0-32.0); POTASSIUM 4.7 MEQ/L (3.5-5.1)
[2016-08-03] MEDS: HALOPERIDOL 5 MG TAB PO SCH ×2 (09:46→20:02)
[2016-08-03] MEDS: LITHIUM CARBONATE 300 MG CAP PO SCH (09:47)
[2016-08-03] MEDS: metFORMIN HCL 500 MG TAB PO SCH ×2 (09:48→20:03)
[2016-08-03] MEDS: ENALAPRIL MALEATE 10 MG TAB PO SCH (09:48)
[2016-08-03] MEDS: BENZTROPINE MESYLATE 1 MG TAB PO SCH ×2 (09:48→20:03)
[2016-08-03] MEDS: ESCITALOPRAM OXALATE 20 MG TAB PO SCH (09:49)
[2016-08-03] MEDS: levOCARNitine 10% ORAL SOLN 118 ML BTL PO SCH ×3 (09:49→17:16)
[2016-08-03] MEDS: PANTOPRAZOLE SOD 20 MG DELAYED RELEASE TAB PO SCH (09:49)
--- NOTE | 2016-08-03 16:33 | HHI.PYPN ---
Subjective Remarks Patient seen and examined with audio visual design engineer. Chart reviewed. Case discussed with nursing staff. On my examination today, patient has been moved to the lower acuity 2600 unit. He is in good spirits and relates that he feels with the medication adjustment made before the weekend. He remains perseverative on discharge and I once again reinforced the plan for hopeful assisted living placement with the ultimate goal of independent living. He seems to understand this. No side effects from medications. Review of Systems Other No somatic complaints Objective Alert: Yes [place]: Person, Place Mood: Calm Affect: Euthymic Memory Intact: Comment (Not formally assessed today) Hallucinations: Other (no audiovisual hallucinations) Delusions: No Delusion Type: Other (no evidence of ongoing delusional material) Suicidal: Ideation (no suicidal ideation) Homicidal: Ideation (no homicidal ideation) Insight/Judgement Poor Remarks No abnormal motor movements noted Labs Test 08/03/16 07:58 Sodium Level 136 MEQ/L Potassium Level 4.7 MEQ/L Chloride Level 103 MEQ/L Carbon Dioxide Level 27.1 MEQ/L Anion Gap 6 MEQ/L Blood Urea Nitrogen 26 MG/DL Creatinine 1.35 MG/DL Estimat Glomerular Filtration 54 ML/MIN Rate Random Glucose 92 MG/DL Calcium Level 9.2 MG/DL Labs reviewed. Renal function stable. Electrolytes within normal limits. Vitals/IOs Vital Signs Date Time Temp Pulse Resp B/P Pulse Ox O2 Delivery O2 Flow Rate FiO2 08/03/16 05:46 98.0 17 17 135/66 94 Assessment & Plan Problem List: (1) Schizoaffective disorder, bipolar type ICD Code: F25.0 Assessment & Plan Continue current psychotropics as ordered including the Haldol. Continue other medications and care as ordered. Justification for Cont. Inpt. Risk for decompensation in a lower level of care. [facility] Request HC Surrog/Guard Advoc?: Yes Chetan Cuellar MD Aug 03, 2016 16:33
[2016-08-03] MEDS: LITHIUM CARBONATE 300 MG TAB PO SCH (20:02)
[2016-08-03] MEDS: LORazepam 1 MG TAB PO PRN (20:02)
[2016-08-03] MEDS: DIVALPROEX DR 500 MG TABEC PO SCH (20:03)
[2016-08-03] MEDS: MELATONIN 5 MG TAB PO SCH (20:03)
[2016-08-03] MEDS: LIDOCAINE HCL 5% PATCH TD SCH (20:03)
[2016-08-03 20:30] VITALS: BP 127/62; PULSE 72; RESP 16; TEMP 98; O2SAT 98
[2016-08-04] MEDS: INSULIN ASPART SUPPLEMENTAL SCALE SQ SCH ×4 (06:00→20:53)
[2016-08-04 06:25] VITALS: BP 112/57; PULSE 59; RESP 18; TEMP 98.2; O2SAT 99
[2016-08-04] MEDS: REMOVE OLD LIDOCAINE PATCH TD SCH (09:00)
[2016-08-04] MEDS: levOCARNitine 10% ORAL SOLN 118 ML BTL PO SCH ×3 (09:16→18:00)
[2016-08-04] MEDS: PANTOPRAZOLE SOD 20 MG DELAYED RELEASE TAB PO SCH (09:17)
[2016-08-04] MEDS: LITHIUM CARBONATE 300 MG CAP PO SCH (09:18)
[2016-08-04] MEDS: metFORMIN HCL 500 MG TAB PO SCH ×2 (09:18→20:20)
[2016-08-04] MEDS: ESCITALOPRAM OXALATE 20 MG TAB PO SCH (09:18)
[2016-08-04] MEDS: HALOPERIDOL 5 MG TAB PO SCH ×2 (09:18→20:20)
[2016-08-04] MEDS: BENZTROPINE MESYLATE 1 MG TAB PO SCH ×2 (09:19→20:20)
[2016-08-04] MEDS: ENALAPRIL MALEATE 10 MG TAB PO SCH (09:20)
--- NOTE | 2016-08-04 14:15 | HHI.PYPN ---
Subjective Remarks Patient seen and examined with counselor. Patient was examined today with computer-based signal and communications maintainer. Chart reviewed. Case discussed with counselor and nursing staff in treatment team. On my examination today, patient is in good spirits. He denies side effects from medications. No delusional material. No other issues noted. Review of Systems Other No somatic complaints today Objective Alert: Yes [place]: Person, Place Mood: Calm Affect: Euthymic (remains fairly euthymic) Memory Intact: Comment (Not formally assessed today) Hallucinations: Other (no AVH) Delusions: No Delusion Type: Other (no delusions) Suicidal: Ideation (no suicidal ideation) Homicidal: Ideation (no homicidal ideation) Insight/Judgement Poor Remarks No abnormal motor movements noted Labs Labs reviewed. No new labs. Vitals/IOs Vital Signs Date Time Temp Pulse Resp B/P Pulse Ox O2 Delivery O2 Flow Rate FiO2 08/04/16 06:25 98.2 59 18 112/57 99 Assessment & Plan Problem List: (1) Schizoaffective disorder, bipolar type ICD Code: F25.0 Assessment & Plan Continue current psychiatric medications as ordered. Continue other medications and care as ordered. Justification for Cont. Inpt. Risk for decompensation in a lower level of care. Discharge Planning Placement versus state psychiatric hospital. Request HC Surrog/Guard Advoc?: Yes Chetan Cuellar MD Aug 04, 2016 14:15
[2016-08-04] MEDS: MELATONIN 5 MG TAB PO SCH (20:20)
[2016-08-04] MEDS: LITHIUM CARBONATE 300 MG TAB PO SCH (20:20)
[2016-08-04] MEDS: DIVALPROEX DR 500 MG TABEC PO SCH (20:20)
[2016-08-04] MEDS: LIDOCAINE HCL 5% PATCH TD SCH (20:53)
[2016-08-05 06:05] VITALS: BP 104/55; PULSE 83; RESP 18; TEMP 98; O2SAT 98
[2016-08-05] MEDS: INSULIN ASPART SUPPLEMENTAL SCALE SQ SCH ×4 (06:42→20:51)
[2016-08-05] MEDS: levOCARNitine 10% ORAL SOLN 118 ML BTL PO SCH ×3 (09:00→17:55)
[2016-08-05] MEDS: REMOVE OLD LIDOCAINE PATCH TD SCH (09:00)
[2016-08-05] MEDS: ESCITALOPRAM OXALATE 20 MG TAB PO SCH (09:21)
[2016-08-05] MEDS: metFORMIN HCL 500 MG TAB PO SCH ×2 (09:21→20:50)
[2016-08-05] MEDS: BENZTROPINE MESYLATE 1 MG TAB PO SCH ×2 (09:22→20:51)
[2016-08-05] MEDS: LITHIUM CARBONATE 300 MG CAP PO SCH (09:22)
[2016-08-05] MEDS: HALOPERIDOL 5 MG TAB PO SCH ×2 (09:22→20:51)
[2016-08-05] MEDS: ENALAPRIL MALEATE 10 MG TAB PO SCH (09:22)
[2016-08-05] MEDS: PANTOPRAZOLE SOD 20 MG DELAYED RELEASE TAB PO SCH (09:22)
--- NOTE | 2016-08-05 11:50 | HHI.PYPN ---
Subjective Remarks Patient seen and examined with nursing and visual design lead. Chart reviewed. Case discussed with nursing staff. On my examination today, patient is in good spirits. He does complain of a little bit of dry mouth but otherwise denies side effects from medications. He is looking forward to ice cream social on Wednesday. We review the discharge plan. No evidence of psychosis or mood instability. No other issues noted. Review of Systems Other Besides dry mouth, no somatic complaints. Objective Alert: Yes [place]: Person, Place (at least) Mood: Calm Affect: Euthymic Memory Intact: Comment (Not formally assessed today) Hallucinations: Other (none) Delusions: No Delusion Type: Other (no delusional material) Suicidal: Ideation (no suicidal ideation) Homicidal: Ideation (no homicidal ideation) Insight/Judgement Poor Remarks No abnormal motor movements noted Labs Labs reviewed. Vitals/IOs Vital Signs Date Time Temp Pulse Resp B/P Pulse Ox O2 Delivery O2 Flow Rate FiO2 08/05/16 06:05 98.0 83 18 104/55 98 Assessment & Plan Problem List: (1) Schizoaffective disorder, bipolar type ICD Code: F25.0 Assessment & Plan Continue current psychiatric medications as ordered. Encouraged hydration for dry mouth. Continue other care as ordered. Justification for Cont. Inpt. High risk for decompensation in a lower level of care. Discharge Planning Placement versus state psychiatric hospitalization Request HC Surrog/Guard Advoc?: Yes Chetan Cuellar MD Aug 05, 2016 11:50
[2016-08-05 18:43] VITALS: BP 104/59; PULSE 63; RESP 16; TEMP 97.7; O2SAT 97
[2016-08-05] MEDS: LITHIUM CARBONATE 300 MG TAB PO SCH (20:50)
[2016-08-05] MEDS: MELATONIN 5 MG TAB PO SCH (20:50)
[2016-08-05] MEDS: DIVALPROEX DR 500 MG TABEC PO SCH (20:51)
[2016-08-05] MEDS: LIDOCAINE HCL 5% PATCH TD SCH (20:52)
[2016-08-05] MEDS: IBUPROFEN 600 MG TAB PO PRN (23:14)
[2016-08-05] MEDS: diphenhydrAMINE HCL 50 MG CAP - HS PRN PO (23:15)
[2016-08-06 04:54] VITALS: BP 99/55; PULSE 57; RESP 18; TEMP 97.9; O2SAT 94
[2016-08-06] MEDS: INSULIN ASPART SUPPLEMENTAL SCALE SQ SCH ×4 (07:00→20:28)
[2016-08-06] MEDS: PANTOPRAZOLE SOD 20 MG DELAYED RELEASE TAB PO SCH (08:14)
[2016-08-06] MEDS: BENZTROPINE MESYLATE 1 MG TAB PO SCH ×2 (08:14→20:16)
[2016-08-06] MEDS: ESCITALOPRAM OXALATE 20 MG TAB PO SCH (08:14)
[2016-08-06] MEDS: levOCARNitine 10% ORAL SOLN 118 ML BTL PO SCH ×3 (08:14→17:10)
[2016-08-06] MEDS: HALOPERIDOL 5 MG TAB PO SCH ×2 (08:14→20:20)
[2016-08-06] MEDS: ENALAPRIL MALEATE 10 MG TAB PO SCH (08:14)
[2016-08-06] MEDS: LITHIUM CARBONATE 300 MG CAP PO SCH (08:14)
[2016-08-06] MEDS: metFORMIN HCL 500 MG TAB PO SCH ×2 (08:41→20:15)
[2016-08-06] MEDS: REMOVE OLD LIDOCAINE PATCH TD SCH (08:46)
[2016-08-06 08:48] VITALS: BP 135/62; PULSE 66
--- NOTE | 2016-08-06 14:52 | HHI.PYPN ---
Subjective Remarks Patient seen and examined with computer-based and later with live signal person. Chart reviewed. Case discussed with nursing staff. No behavioral issues overnight. On my examination today, patient is in good spirits. No reported side effects from medications. No mood or psychotic symptoms evident. We reviewed discharge planning. Review of Systems Other No somatic complaints today Objective Alert: Yes [place]: Person, Place (at least) Mood: Calm Affect: Euthymic Memory Intact: Comment (Not formally assessed today) Hallucinations: Other (no AVH) Delusions: No Delusion Type: Other (no delusional material) Suicidal: Ideation (no SI) Homicidal: Ideation (no HI) Insight/Judgement Poor Remarks Thought process somewhat perseverative Labs Labs reviewed Vitals/IOs Vital Signs Date Time Temp Pulse Resp B/P Pulse Ox O2 Delivery O2 Flow Rate FiO2 08/06/16 08:48 66 135/62 08/06/16 04:54 97.9 18 94 Assessment & Plan Problem List: (1) Schizoaffective disorder, bipolar type ICD Code: F25.0 Assessment & Plan Continue current psychiatric medications as ordered. Continue other medications and care as ordered. Justification for Cont. Inpt. Risk for decompensation in a lower level of care. Discharge Planning Placement versus [facility]. Case discussed with counselor. Request HC Surrog/Guard Advoc?: Yes Chetan Cuellar MD Aug 06, 2016 14:52
[2016-08-06 18:12] VITALS: BP 109/58; PULSE 68; RESP 18; TEMP 98.1; O2SAT 96
[2016-08-06] MEDS: DIVALPROEX DR 500 MG TABEC PO SCH (20:14)
[2016-08-06] MEDS: LITHIUM CARBONATE 300 MG TAB PO SCH (20:17)
[2016-08-06] MEDS: MELATONIN 5 MG TAB PO SCH (20:17)
[2016-08-06] MEDS: IBUPROFEN 600 MG TAB PO PRN (20:17)
[2016-08-06] MEDS: LIDOCAINE HCL 5% PATCH TD SCH (20:21)
[2016-08-07 04:50] VITALS: BP 99/54; PULSE 59; RESP 16; TEMP 97.6; O2SAT 97
[2016-08-07] MEDS: INSULIN ASPART SUPPLEMENTAL SCALE SQ SCH ×4 (06:24→20:45)
[2016-08-07] MEDS: REMOVE OLD LIDOCAINE PATCH TD SCH (09:00)
[2016-08-07] MEDS: ENALAPRIL MALEATE 10 MG TAB PO SCH (09:24)
[2016-08-07] MEDS: metFORMIN HCL 500 MG TAB PO SCH ×2 (09:24→20:43)
[2016-08-07] MEDS: LITHIUM CARBONATE 300 MG CAP PO SCH (09:24)
[2016-08-07] MEDS: levOCARNitine 10% ORAL SOLN 118 ML BTL PO SCH ×3 (09:25→17:56)
[2016-08-07] MEDS: HALOPERIDOL 5 MG TAB PO SCH ×2 (09:25→20:44)
[2016-08-07] MEDS: BENZTROPINE MESYLATE 1 MG TAB PO SCH ×2 (09:25→20:44)
[2016-08-07] MEDS: ESCITALOPRAM OXALATE 20 MG TAB PO SCH (09:25)
[2016-08-07] MEDS: PANTOPRAZOLE SOD 20 MG DELAYED RELEASE TAB PO SCH (09:25)
--- NOTE | 2016-08-07 10:55 | HHI.PYPN ---
Subjective Remarks Patient seen and examined with refractory furnace designer. Chart reviewed. Case discussed with nursing staff. On my examination today, the patient is in good spirits. He says that he feels like his medications are working well. He denies side effects from medications. No SI or HI voiced. No other complaints. Review of Systems Other No physical complaints today Objective Alert: Yes [place]: Person, Place Mood: Calm Affect: Euthymic (remains euthymic) Memory Intact: Comment (seems at least fair on clinical exam) Hallucinations: Other (no AVH) Delusions: No Delusion Type: Other (no delusions) Suicidal: Ideation (no SI) Homicidal: Ideation (no HI) Insight/Judgement Poor Remarks Thought processes linear Labs Labs reviewed. No new labs. Vitals/IOs Vital Signs Date Time Temp Pulse Resp B/P Pulse Ox O2 Delivery O2 Flow Rate FiO2 08/07/16 04:50 97.6 59 16 99/54 97 Assessment & Plan Problem List: (1) Schizoaffective disorder, bipolar type ICD Code: F25.0 Assessment & Plan Continue current psychiatric medications as ordered and continue other medications and care as ordered. Justification for Cont. Inpt. Risk for decompensation in a lower level of care. Discharge Planning Placement versus state psychiatric hospitalization Request HC Surrog/Guard Advoc?: Yes Chetan Cuellar MD Aug 07, 2016 10:55
[2016-08-07] MEDS: ACETAMINOPHEN/HYDROcodone 325 MG/5 MG TAB PO PRN ×2 (12:31→13:42)
[2016-08-07 18:39] VITALS: BP 129/68; PULSE 70; RESP 18; TEMP 98.3; O2SAT 97
[2016-08-07] MEDS: DIVALPROEX DR 500 MG TABEC PO SCH (20:43)
[2016-08-07] MEDS: LITHIUM CARBONATE 300 MG TAB PO SCH (20:44)
[2016-08-07] MEDS: MELATONIN 5 MG TAB PO SCH (20:45)
[2016-08-07] MEDS: LIDOCAINE HCL 5% PATCH TD SCH (20:46)
[2016-08-08 05:35] VITALS: BP 103/56; PULSE 65; RESP 17; TEMP 98.2; O2SAT 98
[2016-08-08 06:23] VITALS: BP 85/50; PULSE 65; RESP 17; TEMP 98.2; O2SAT 98
[2016-08-08 06:25] VITALS: BP 103/56
[2016-08-08] MEDS: INSULIN ASPART SUPPLEMENTAL SCALE SQ SCH ×4 (06:37→20:31)
[2016-08-08] MEDS: REMOVE OLD LIDOCAINE PATCH TD SCH (09:00)
[2016-08-08] MEDS: LITHIUM CARBONATE 300 MG CAP PO SCH (09:52)
[2016-08-08] MEDS: BENZTROPINE MESYLATE 1 MG TAB PO SCH ×2 (09:52→20:27)
[2016-08-08] MEDS: HALOPERIDOL 5 MG TAB PO SCH ×2 (09:52→20:27)
[2016-08-08] MEDS: ESCITALOPRAM OXALATE 20 MG TAB PO SCH (09:52)
[2016-08-08] MEDS: ENALAPRIL MALEATE 10 MG TAB PO SCH (09:52)
[2016-08-08] MEDS: metFORMIN HCL 500 MG TAB PO SCH ×2 (09:52→20:27)
[2016-08-08] MEDS: PANTOPRAZOLE SOD 20 MG DELAYED RELEASE TAB PO SCH (09:52)
[2016-08-08] MEDS: levOCARNitine 10% ORAL SOLN 118 ML BTL PO SCH ×3 (09:54→18:44)
--- NOTE | 2016-08-08 14:00 | HHI.PYPN ---
Subjective Remarks Pt seen and discussed with staff. He has been compliant with treatment and medications. No behavioral problems on unit. No SI/HI. He denies pain or discomfort. Objective Alert: Yes [place]: Person, Place Mood: Calm Affect: Euthymic (remains euthymic) Memory Intact: Comment (seems at least fair on clinical exam) Hallucinations: Other (no AVH) Delusions: No Delusion Type: Other (no delusions) Suicidal: Ideation (no SI) Homicidal: Ideation (no HI) Insight/Judgement poor Vitals/IOs Vital Signs Date Time Temp Pulse Resp B/P Pulse Ox O2 Delivery O2 Flow Rate FiO2 08/08/16 06:25 103/56 08/08/16 06:23 98.2 65 17 98 Intake and Output 08/07/16 08/07/16 08/08/16 08:00 16:00 00:00 Intake Total 480 ml Balance 480 ml Assessment & Plan Problem List: (1) Schizoaffective disorder, bipolar type ICD Code: F25.0 Assessment & Plan Continue current tx plan. Estimated LOS: days Justification for Cont. Inpt. risk of decompensation. Request HC Surrog/Guard Advoc?: Yes Marychuy Yoo MD Aug 08, 2016 14:00
[2016-08-08 18:40] VITALS: BP 122/61; PULSE 67; RESP 18; TEMP 98.7; O2SAT 97
[2016-08-08] MEDS: MELATONIN 5 MG TAB PO SCH (20:27)
[2016-08-08] MEDS: DIVALPROEX DR 500 MG TABEC PO SCH (20:27)
[2016-08-08] MEDS: LITHIUM CARBONATE 300 MG TAB PO SCH (20:28)
[2016-08-08] MEDS: LIDOCAINE HCL 5% PATCH TD SCH (20:32)
[2016-08-09 05:21] VITALS: BP 105/61; PULSE 60; RESP 16; TEMP 97.8
[2016-08-09] MEDS: REMOVE OLD LIDOCAINE PATCH TD SCH (09:00)
[2016-08-09] MEDS: LITHIUM CARBONATE 300 MG CAP PO SCH (09:20)
[2016-08-09] MEDS: PANTOPRAZOLE SOD 20 MG DELAYED RELEASE TAB PO SCH (09:20)
[2016-08-09] MEDS: ESCITALOPRAM OXALATE 20 MG TAB PO SCH (09:20)
[2016-08-09] MEDS: HALOPERIDOL 5 MG TAB PO SCH ×2 (09:20→20:37)
[2016-08-09] MEDS: ENALAPRIL MALEATE 10 MG TAB PO SCH (09:20)
[2016-08-09] MEDS: levOCARNitine 10% ORAL SOLN 118 ML BTL PO SCH ×3 (09:21→18:00)
[2016-08-09] MEDS: BENZTROPINE MESYLATE 1 MG TAB PO SCH ×2 (09:21→20:37)
[2016-08-09] MEDS: metFORMIN HCL 500 MG TAB PO SCH ×2 (09:21→20:37)
[2016-08-09] MEDS: INSULIN ASPART SUPPLEMENTAL SCALE SQ SCH ×3 (11:00→20:40)
--- NOTE | 2016-08-09 15:41 | HHI.PYPN ---
Subjective Remarks Pt seen and discussed with staff. Pt has been calm and cooperative today. Compliant with medications. No SI/HI. He has been out in milieu more today. Objective Alert: Yes [place]: Person, Place Mood: Calm Affect: Euthymic (remains euthymic) Memory Intact: Comment (seems at least fair on clinical exam) Hallucinations: Other (no AVH) Delusions: No Delusion Type: Other (no delusions) Suicidal: Ideation (no SI) Homicidal: Ideation (no HI) Insight/Judgement limited Vitals/IOs Vital Signs Date Time Temp Pulse Resp B/P Pulse Ox O2 Delivery O2 Flow Rate FiO2 08/09/16 05:21 97.8 60 16 105/61 08/08/16 18:40 97 Assessment & Plan Problem List: (1) Schizoaffective disorder, bipolar type ICD Code: F25.0 Assessment & Plan Continue current tx plan. Estimated LOS: days Justification for Cont. Inpt. risk of decompensation Request HC Surrog/Guard Advoc?: Yes Marychuy Yoo MD Aug 09, 2016 15:41
[2016-08-09 18:15] VITALS: BP 113/58; PULSE 66; RESP 18; TEMP 98.4; O2SAT 97
[2016-08-09] MEDS: MELATONIN 5 MG TAB PO SCH (20:37)
[2016-08-09] MEDS: LITHIUM CARBONATE 300 MG TAB PO SCH (20:37)
[2016-08-09] MEDS: DIVALPROEX DR 500 MG TABEC PO SCH (20:37)
[2016-08-09] MEDS: LIDOCAINE HCL 5% PATCH TD SCH (20:41)
[2016-08-09] MEDS: diphenhydrAMINE HCL 50 MG CAP - HS PRN PO (22:41)
[2016-08-10 05:51] VITALS: BP 118/63; PULSE 68; TEMP 98; O2SAT 97
[2016-08-10] MEDS: INSULIN ASPART SUPPLEMENTAL SCALE SQ SCH ×4 (06:19→20:22)
[2016-08-10] MEDS: PANTOPRAZOLE SOD 20 MG DELAYED RELEASE TAB PO SCH (08:33)
[2016-08-10] MEDS: BENZTROPINE MESYLATE 1 MG TAB PO SCH ×2 (08:33→20:23)
[2016-08-10] MEDS: ESCITALOPRAM OXALATE 20 MG TAB PO SCH (08:33)
[2016-08-10] MEDS: LITHIUM CARBONATE 300 MG CAP PO SCH (08:34)
[2016-08-10] MEDS: ENALAPRIL MALEATE 10 MG TAB PO SCH (08:34)
[2016-08-10] MEDS: HALOPERIDOL 5 MG TAB PO SCH ×2 (08:34→20:24)
[2016-08-10] MEDS: metFORMIN HCL 500 MG TAB PO SCH ×2 (08:34→20:23)
[2016-08-10] MEDS: levOCARNitine 10% ORAL SOLN 118 ML BTL PO SCH ×3 (08:35→17:47)
[2016-08-10] MEDS: REMOVE OLD LIDOCAINE PATCH TD SCH (09:00)
--- NOTE | 2016-08-10 14:40 | HHI.PYPN ---
Subjective Remarks Patient seen and examined with counselor and solution design engineer. Chart reviewed. Case discussed with nursing staff reports patient has been no behavioral problem. Counselor informs me that a facility has expressed interest in taking on the patient's case and he might be able to be discharged there as early as tomorrow. Patient's sister is going to evaluate the facility today. On my examination today, the patient is in good spirits. I can elicit no mood or psychotic symptoms. He denies side effects from medications. He is pleased to hear that placement might be imminent and is looking forward to leaving the hospital soon. Review of Systems Other No somatic complaints today Objective Alert: Yes [place]: Person, Place Mood: Calm Affect: Euthymic Memory Intact: Comment (remains at least fair on clinical examination) Hallucinations: Other (no AVH) Delusions: No Delusion Type: Other (no delusions) Suicidal: Ideation (no suicidal ideation) Homicidal: Ideation (no homicidal ideation) Insight/Judgement Poor Remarks Thought process linear. Labs Labs reviewed. No new labs. Vitals/IOs Vital Signs Date Time Temp Pulse Resp B/P Pulse Ox O2 Delivery O2 Flow Rate FiO2 08/10/16 05:51 98.0 68 118/63 97 08/09/16 18:15 18 Assessment & Plan Problem List: (1) Schizoaffective disorder, bipolar type ICD Code: F25.0 Assessment & Plan Continue current psychiatric medications as ordered. Continue other care as ordered. Justification for Cont. Inpt. High risk for decompensation in a lower level of care Discharge Planning Possible disposition to assisted living facility tomorrow. Request HC Surrog/Guard Advoc?: Yes Chetan Cuellar MD Aug 10, 2016 14:40
[2016-08-10 17:09] VITALS: BP 111/60; PULSE 65; RESP 18; TEMP 98.2; O2SAT 97
[2016-08-10] MEDS: MELATONIN 5 MG TAB PO SCH (20:23)
[2016-08-10] MEDS: LITHIUM CARBONATE 300 MG TAB PO SCH (20:24)
[2016-08-10] MEDS: DIVALPROEX DR 500 MG TABEC PO SCH (20:24)
[2016-08-10] MEDS: LIDOCAINE HCL 5% PATCH TD SCH ×2 (21:00→21:14)
[2016-08-10] MEDS: IBUPROFEN 600 MG TAB PO PRN (21:14)
[2016-08-11 05:31] VITALS: BP 95/53; PULSE 60; RESP 17; TEMP 97.5; O2SAT 97
[2016-08-11] MEDS: INSULIN ASPART SUPPLEMENTAL SCALE SQ SCH ×4 (06:16→20:56)
[2016-08-11] MEDS: metFORMIN HCL 500 MG TAB PO SCH ×2 (08:58→20:40)
[2016-08-11] MEDS: ESCITALOPRAM OXALATE 20 MG TAB PO SCH (08:58)
[2016-08-11] MEDS: LITHIUM CARBONATE 300 MG CAP PO SCH (08:58)
[2016-08-11] MEDS: HALOPERIDOL 5 MG TAB PO SCH ×2 (08:58→20:40)
[2016-08-11] MEDS: BENZTROPINE MESYLATE 1 MG TAB PO SCH ×2 (08:58→20:40)
[2016-08-11] MEDS: PANTOPRAZOLE SOD 20 MG DELAYED RELEASE TAB PO SCH (08:58)
[2016-08-11 09:00] VITALS: BP 113/69; PULSE 67; RESP 17; TEMP 96.9; O2SAT 96
[2016-08-11] MEDS: levOCARNitine 10% ORAL SOLN 118 ML BTL PO SCH ×3 (09:00→17:48)
[2016-08-11] MEDS: REMOVE OLD LIDOCAINE PATCH TD SCH (09:00)
[2016-08-11] MEDS: ENALAPRIL MALEATE 10 MG TAB PO SCH (09:00)
--- NOTE | 2016-08-11 14:37 | HHI.PYPN ---
Subjective Remarks Patient seen and examined with hardware designer. Chart reviewed. Case discussed with counselor and nursing staff in treatment team. On my examination today, patient is in good spirits. He has no symptoms of mood disorder or psychosis. He is hopeful for discharge soon to assisted living facility. Counselor informs me that patient's sister is evaluating a facility today for possible discharge tomorrow. No side effects from medications. Review of Systems Other No physical complaints today Objective Alert: Yes [place]: Person, Place Mood: Calm Affect: Euthymic Memory Intact: Comment (not formally assessed today) Hallucinations: Other (no AVH) Delusions: No Delusion Type: Other (no delusional material) Suicidal: Ideation (no suicidal ideation) Homicidal: Ideation (no homicidal ideation) Insight/Judgement Poor Remarks Thought process linear. Labs Labs reviewed. No new labs. Vitals/IOs Vital Signs Date Time Temp Pulse Resp B/P Pulse Ox O2 Delivery O2 Flow Rate FiO2 08/11/16 09:00 96.9 67 17 113/69 96 Assessment & Plan Problem List: (1) Schizoaffective disorder, bipolar type ICD Code: F25.0 Assessment & Plan Continue current psychotropics as ordered. Continue other medications and care as ordered. Justification for Cont. Inpt. Risk for decompensation Discharge Planning Anticipate discharged to assisted living tomorrow. Counselor has updated me and informs me that this facility meets with sister's approval. Arrangements will be made to ensure that a hardware designer is present to ease the transition. Counselor also informs me that database administrator of the assisted living will speak with the patient on arrival with a hardware designer to reinforce behavioral expectations there. We will plan to discharge the patient tomorrow to assisted living. Request HC Surrog/Guard Advoc?: Yes Chetan Cuellar MD Aug 11, 2016 14:37
[2016-08-11 20:38] VITALS: BP 122/65; PULSE 74; RESP 17; TEMP 98.4; O2SAT 94
[2016-08-11] MEDS: LITHIUM CARBONATE 300 MG TAB PO SCH (20:38)
[2016-08-11] MEDS: MELATONIN 5 MG TAB PO SCH (20:40)
[2016-08-11] MEDS: LIDOCAINE HCL 5% PATCH TD SCH (20:41)
[2016-08-11] MEDS: DIVALPROEX DR 500 MG TABEC PO SCH (20:41)
[2016-08-12 05:14] VITALS: BP 103/51; PULSE 67; RESP 17; TEMP 98; O2SAT 96
[2016-08-12] MEDS: INSULIN ASPART SUPPLEMENTAL SCALE SQ SCH (05:52)
[2016-08-12] MEDS: PANTOPRAZOLE SOD 20 MG DELAYED RELEASE TAB PO SCH (08:08)
[2016-08-12] MEDS: HALOPERIDOL 5 MG TAB PO SCH (08:08)
[2016-08-12] MEDS: ESCITALOPRAM OXALATE 20 MG TAB PO SCH (08:08)
[2016-08-12] MEDS: metFORMIN HCL 500 MG TAB PO SCH (08:08)
[2016-08-12] MEDS: BENZTROPINE MESYLATE 1 MG TAB PO SCH (08:08)
[2016-08-12] MEDS: ENALAPRIL MALEATE 10 MG TAB PO SCH (08:08)
[2016-08-12] MEDS: LITHIUM CARBONATE 300 MG CAP PO SCH (08:08)
[2016-08-12] MEDS: levOCARNitine 10% ORAL SOLN 118 ML BTL PO SCH (08:09)
[2016-08-12] MEDS ORDERED: HALO5TAB PO (08:12)
[2016-08-12] MEDS ORDERED: LITH300C2 PO (08:12)
[2016-08-12] MEDS ORDERED: LEXA20TA PO (08:12)
[2016-08-12] MEDS ORDERED: PANT20 PO (08:12)
[2016-08-12] MEDS ORDERED: LITH300T3 PO (08:12)
[2016-08-12] MEDS ORDERED: AMLO10 PO (08:12)
[2016-08-12] MEDS ORDERED: BENZ1TAB PO (08:12)
[2016-08-12] MEDS ORDERED: METF1000 PO (08:12)
[2016-08-12] MEDS ORDERED: DEPA500T PO (08:12)
[2016-08-12] MEDS ORDERED: MELA1TAB22 PO (08:12)
[2016-08-12] MEDS ORDERED: LEVO10%S PO (08:12)
[2016-08-12] MEDS ORDERED: ENAL20TA PO (08:12)
[2016-08-12] MEDS: REMOVE OLD LIDOCAINE PATCH TD SCH (08:12)
--- NOTE | 2016-08-12 08:13 | HHI.DS ---
Psychiatry Discharge Summary Inpatient Psychiatric care?: Yes Advance Directive: No Reason Not Provided: does not have Mental Health AdvanceDirective: No Health Care Proxy: No Admission Admission Date Jun 13, 2016 at 09:56 Admission Diagnosis: (1) Schizoaffective disorder ICD Code: F25.9 Brief History Patient is a 56-year-old white male, deaf, well-known to posterior multiple prior contacts was returned to the ED yesterday under [place] act from his [facility] after being there for only a few hours. He was seen by Dr. Silverman in consultation yesterday who recommended observation overnight and follow-up with me. It appears patient was hospitalized here 05/21/16 through 05/29/16 visit [id number], and then transferred to the medicine service 05/29/16 through visit [id number]. Patient today is seen on the [place] with multiple security staff near his room due to his violent behavior. He is demanding a live country printer apprentice which has been provided he has been aggressive towards that person also. I attempted to go into the room to speak with him through his country printer apprentice refused to speak with me turning his head away I attempted to gain eye contact with them he became more aggressive standing up and getting quite close to me in a threatening manner. He also did this with the country printer apprentice. At that time felt the patient was out of control and did not have capacity to make appropriate decisions concerning his care. Became more violent agitated necessitating him being placed in full leather restraints, given and ETO of Haldol 10 mg IM Ativan 2 mg IM and Benadryl 50 mg IM. Patient to be admitted to the 2700 unit. I will do first opinion requests a second opinion, I feel he does not of capacity I will thus ask for healthcare surrogate and guardian advocate. Patient does continue to refuse to speak with me through an country printer apprentice. Patient does have a sister who is concerned and who appears to be his power of county attorney. Patient will be admitted to the 2700 unit under my service with a intention to transfer to Dr. Chetan cuellar on Friday 06/15 Tobacco Use In Past 30 Days: No Tobacco Past 30 Days Alcohol Use: Never Hospital Course Patient was admitted to a locked, inpatient psychiatric unit. A general medical consultation was obtained. Appropriate precautions were in place throughout patient's hospital stay. Patient was seen and examined daily on the unit by psychiatry and also visited by counselor. Medications were adjusted. Patient tolerated medications well without significant side effects. Patient had improvement in his presenting psychiatric symptomatology. There was no evidence of any suicidality or homicidality on the inpatient unit. Patient's behavior improved with the benefit of psychotropic medication treatment. After considerable effort by the counselor and discharge planning team, assisted living placement was secured for the patient. On the day of discharge: Patient seen and examined with senior interior designer. Chart reviewed. Case discussed with nursing staff. No behavioral issues overnight. Patient expresses gratitude for the care that he has received here. He is looking forward to transitioning to assisted living placement. He denies any suicidal or homicidal ideation. He denies any audiovisual hallucinations. No delusional material. In particular the patient does not verbalize any delusions about family in [place]. Mood is good and there are no depressive or hypomanic/manic symptoms. He is tolerating psychotropics well without significant side effects. No physical complaints. Weighing the acute, chronic , and protective factors and based on the available evidence, I recreation establishment manager to a reasonable degree of medical certainty that the patient is at low imminent risk of harm to self or others from a mental illness and his level of function is adequate for [facility] level of care. The patient has maximized benefit from this inpatient psychiatric hospital stay. He will be discharged today to assisted living in stable condition with psychiatric follow-up as arranged by counselor. Patient is also to follow-up with primary care. Patient to return to the psychiatric emergency room for any concerning psychiatric symptoms. Results Blood Pressure 103 / 51 Vital Signs Date Time Temp Pulse Resp B/P Pulse Ox O2 Delivery O2 Flow Rate FiO2 08/12/16 05:14 98.0 67 17 103/51 96 Item Value Date Time White Blood Count 13.5 TH/MM3 H 07/31/16 0725 Hemoglobin 11.0 GM/DL L 07/31/16 07 Platelet Count 200 TH/MM3 07/31/16 0725 Sodium Level 136 MEQ/L 08/03/16 0758 Potassium Level 4.7 MEQ/L 08/03/16 0758 Chloride Level 103 MEQ/L 08/03/16 0758 Carbon Dioxide Level 27.1 MEQ/L 08/03/16 0758 Anion Gap 6 MEQ/L 08/03/16 0758 Blood Urea Nitrogen 26 MG/DL H 08/03/16 0758 Creatinine 1.35 MG/DL H 08/03/16 0758 Estimat Glomerular Filtration Rate 54 ML/MIN L 08/03/16 0758 Ammonia 20 MCMOL/L 07/31/16 0725 Valproic Acid (Depakene) Level 89 MCG/ML 07/31/16 0725 Paraje Level 0.9 MEQ/L 07/31/16 0725 Patient on lithium therapy with no signs or symptoms of infection at time of discharge. Summary of Procedures None done Imaging Last Impressions Shoulder X-Ray 07/09/16 0000 Signed Impressions: Service Date/Time: June 20:49 - CONCLUSION: Right shoulder radiographic appearance within normal limits. Sumanth Villegas MD Lumbar Spine X-Ray 07/02/16 0000 Signed Impressions: Service Date/Time: June 23:13 - CONCLUSION: 1. Moderate degenerative changes as described above. There is no evidence of acute fracture. Chetan Arias MD Pending results at discharge: No Medications # of Antipsychotic meds at D/C: 1 Approp Antipsych med options 1 - Minimum of three failed multiple trials of monotherapy. 2 - Documented plan to taper to monotherapy due to previous use of multiple meds OR cross-taper in progress at D/C. 3 - Documentation of augmentation of Clozapine. 4 - Justification other than those listed in allowable values 1-3, document here : Discharge Discharge Date: Aug 12, 2016 Discharge Diagnosis: (1) Schizoaffective disorder, bipolar type Diagnosis: [place] (stable) ICD Code: F25.0 Mental Status Exam at Disch Patient is casually dressed. He is fairly well groomed. He is awake and alert and oriented to person and hospital. He knows that he is leaving for assisted living placement today. No signs of delirium. Very mild resting hand tremor but no dystonias or dyskinesias noted. No other motoric abnormalities noted. Steady gait and station. Speech is through senior interior designer. Mood is good and affect is bright, euthymic, full and reactive. Thought process linear. No loosening of associations. No evident delusions. Denies audiovisual hallucinations. Denies suicidal or homicidal ideation. Insight and judgment are poor, likely patient's chronic condition. Pt Condition on Discharge: Stable Discharge Disposition: [facility] Discharge Instructions Diet Instructions: Diabetic Diet Activities you can perform: Weight Bearing as David Scheduled Appointment: as per counselor's notes New Medications: Benztropine (Benztropine) 1 Mg Tab 0.5 MG PO Q12HR EPS Days 30 Ref 0 TAB Haloperidol (Haloperidol) 5 Mg Tab 5 MG PO BID Mental Health Days 30 Ref 0 TAB Levocarnitine Liq (Carnitor Liq) 1 Gm/10 Ml Soln 3 ML PO TID Hyperammonemia Days 30 Ref 0 ML Paraje Carbonate (Paraje Carbonate) 300 Mg Cap 300 MG PO DAILY Mental Health Days 30 Ref 0 CAP Paraje Carbonate (Paraje Carbonate) 300 Mg Tab 150 MG PO HS Mental Health Days 30 Ref 0 TAB Melatonin (Melatonin) 5 Mg Tab 5 MG PO HS Sleep Days 30 Ref 0 TAB Pantoprazole (Protonix) 20 Mg Tab 20 MG PO DAILY Health Days 30 Ref 0 TAB Continued Medications: Amlodipine (Norvasc) 10 Mg Tab 10 MG PO DAILY Blood Pressure Management #30 Ref 0 TAB (This prescription has been renewed) Divalproex DR (Depakote DR) 500 Mg Tabdr 1500 MG PO HS Bipolar disorder Days 30 Ref 0 TAB (This prescription has been renewed) Enalapril (Enalapril) 20 Mg Tab 20 MG PO DAILY Blood Pressure Management Days 30 Ref 0 TAB (This prescription has been renewed) Escitalopram (Lexapro) 20 Mg Tab 20 MG PO DAILY Depression Control Days 30 Ref 0 TAB (This prescription has been renewed) Insulin Aspart Inj (Novolog Inj) 100 Unit/Ml Inj 1 INJECTION SQ DIRECTED Three times daily SQ sliding scale before meals. no need to HS dosing. Diabetes Days 30 INJECTION Metformin (Metformin) 1,000 Mg Tab 1000 MG PO BID With meals Blood Sugar Management Days 30 Ref 0 TAB (This prescription has been renewed) Discontinued Medications: Atorvastatin (Lipitor) 20 Mg Tab 20 MG PO HS Cholesterol Management Days 15 Ref 1 TAB Calcium Polycarbophil (Fibercon) 625 Mg Tab 625 MG PO DAILY PRN CONSTIPATION Days 30 Ref 0 TAB Clindamycin (Cleocin) 150 Mg Cap 300 MG PO Q6H dental infection Days 10 CAP Ibuprofen (Motrin Ib) 200 Mg Tab 600 MG PO Q8HR PRN PAIN Days 5 Ref 0 TAB Insulin Human Isophane-Regular 70-30 Inj (Novolin 70-30 Inj) 1,000 Unit/10 Ml Vial 14 UNITS SQ DAILY@08 diabetes Days 30 INJECTION Insulin Human Isophane-Regular 70-30 Inj (Novolin 70-30 Inj) 1,000 Unit/10 Ml Vial 13 UNITS SQ DAILY@17 Diabetes Days 30 INJECTION Lactulose Liq (Lactulose Liq) 10 Gm/15 Ml Soln 15 ML PO BID HYPERAMMONEMIA Days 30 Ref 0 ML Paraje Carbonate (Paraje Carbonate) 300 Mg Cap 300 MG PO DAILY Bipolar Disorder Days 15 Ref 1 CAP Melatonin (Melatonin) 3 Mg Tab 6 MG PO HS Insomnia Days 30 TAB [place]-3 Fatty Acids (Fish Oil 1000 mg) 1 Cap Cap 2000 MG PO DAILY hypertrigylceridemia Days 30 CAP Omeprazole (Omeprazole) 20 Mg Tab 20 MG PO DAILY prophylaxis #30 Ref 0 TAB Discharge Time > 30 minutes Discharge/Advance Care Plan Health Problems: (1) Schizoaffective disorder, bipolar type Goals to promote your health * To prevent worsening of your condition and complications * To maintain your health at the optimal level Directions to meet your goals Take your medications as prescribed Follow your dietary instruction Follow activity as directed Keep your appointments as scheduled Take your immunizations and boosters as scheduled If your symptoms worsen call your PCP, if no PCP go to Urgent Care Center or Emergency Room For 24/ questions related to your inpatient stay or results of tests pending at discharge, please contact Dr. Chetan Cuellar at Smoking is Dangerous to Your Health. Avoid second hand smoking Problem Qualifiers (1) Schizoaffective disorder: Qualified Code: F25.0 - Schizoaffective disorder, bipolar type Chetan Cuellar MD Aug 12, 2016 08:13
== END 2016-08-12 10:45 | DRG 885 ==
LOC: H270 09:56 → H260 06-16 14:00 → H270 06-24 22:55 → H260 08-03 13:42
PROVIDERS: ADMIT Psychiatry & Neurology Psychiatry; ATTEND Psychiatry & Neurology Psychiatry
DX: F25.0 Schizoaffective disorder, bipolar type (principal); M62.82 Rhabdomyolysis; E72.20 Disorder of urea cycle metabolism, unspecified; E11.9 Type 2 diabetes mellitus without complications; I10 Essential (primary) hypertension; E78.5 Hyperlipidemia, unspecified; F41.9 Anxiety disorder, unspecified; M25.511 Pain in right shoulder; H91.3 Deaf nonspeaking, not elsewhere classified; G89.29 Other chronic pain; R51 Headache; K08.89 Other specified disorders of teeth and supporting structures; M54.5 Low back pain; Z23 Encounter for immunization; Z79.4 Long term (current) use of insulin; Z79.899 Other long term (current) drug therapy
CPT/HCPCS: 72110; 73030; 80048; 80053; 80061; 80164; 80178; 81001; 82140; 82550; 82552; 82948; 83036; 83735; 85025; 90471; 90686; 99283; G0008; J1200; J1630; J1815; J2060; Q0163; Q2038

== ENCOUNTER 2016-09-07 05:54 | Emergency (ER) | payer MEDICARE, OTHER ==
[~2016-09-07] VITALS: Ht 182.9 cm; Wt 105.0 kg
[~2016-09-07 05:54] MED LIST changes: +BENZ1TAB PO; -CLIN150 PO; -FIBE625T PO; +HALO5TAB PO; -LACT10SO PO; +LEVO10%S PO; -LIPI20TA PO; +LITH300T3 PO; +MELA1TAB22 PO; -MELA3TAB PO; -MOTR200T4 PO; -NOVO7030P2 SQ; -OMEG100037 PO; -OMEP20TA PO; +PANT20 PO
[2016-09-07 05:56] VITALS: BP 130/68; PULSE 60; RESP 18; TEMP 98.5; O2SAT 97
[2016-09-07 06:20] VITALS: BP 128/89; PULSE 62; RESP 18; O2SAT 100
[2016-09-07] MEDS ORDERED: SODIUM CHLOR 0.9% 1000 ML INJ 1,000 ML IV ONE (06:30)
[2016-09-07 06:32] VITALS: O2SAT 98
[2016-09-07 06:57] LABS: AUTOMATED NEUTROPHIL # 6.7 TH/MM3 (1.8-7.7); BASOPHIL # 0.1 TH/MM3 (0-0.2); BASOPHIL % 0.8 % (0.0-2.0); EOSINOPHIL # 0.6 TH/MM3 (0-0.4); EOSINOPHIL % 4.5 % (0.0-4.0); HEMATOCRIT 35.2 % (39.0-51.0); HEMO FLAGS DIFF FINAL; LYMPH % 30.7 % (9.0-44.0); LYMPHOCYTE # 3.8 TH/MM3 (1.0-4.8); MEAN CORPUSCULAR HEMOGLOBIN 27.3 PG (27.0-34.0); MEAN CORPUSCULAR HGB CONC 33.4 % (32.0-36.0); MONO % 10.6 % (0.0-8.0); NEUT % 53.4 % (16.0-70.0); PLATELET COUNT 204 TH/MM3 (150-450); RED BLOOD COUNT 4.29 MIL/MM3 (4.50-5.90); RED CELL DISTRIBUTION WIDTH 13.8 % (11.6-17.2); WHITE BLOOD COUNT 12.5 TH/MM3 (4.0-11.0)
--- NOTE | 2016-09-07 07:03 | PD ---
HPI Chief Complaint: Seizure Time Seen by Provider: 06:26 Travel History International Travel<30 days: No Contact w/Intl Traveler<30days: No Traveled to known affect area: No History of Present Illness HPI The patient is a 56 year old male who presents to the [facility] emergency department with a history of being brought in by ambulance services after being found on the floor at his assisted living facility. The patient was noted to be shaking in a facility was concerned that the patient may have had a seizure. The patient has no prior history of seizure activity. The patient's history initially was limited due to the fact that he is deaf, however after translation was obtained by video chief technology officer, the patient's history was also limited as the patient is a poor historian and has difficulty staying on track with answering questions that are asked. The patient according to the record has a history of schizophrenia and bipolar disorder. The patient on my arrival to the room is noted to have tremulousness, however this waxes and wanes during observation and at times completely resolves. The patient has had no tongue biting. The patient has had no loss of bowel or bladder control. The patient on examination and history reports that he's had a recent cough, congestion, shortness of breath with exertion, intermittent hard stools, reported subjective fever, and dysuria. From reviewing the patient's electronic medical record, the patient was recently admitted to the psychiatric service and had his lithium and Depakote doses changed. The patient denies having any chest pain, abdominal pain, vomiting, diarrhea, headache, neck pain, one-sided weakness, facial droop, or change in mentation otherwise. [facility] Past Medical History Narrative Medical The patient's past medical history according to the electronic medical record consists of schizophrenia, bipolar disorder, diabetes mellitus, hypertension, acid reflux. Arthritis: No Asthma: No Autoimmune Disease: No Blood Disorders: No Bipolar Disorder: Yes Anxiety: Yes Depression: Yes Heart Rhythm Problems: No Cancer: No Cardiovascular Problems: No High Cholesterol: Yes Chemotherapy: No Chest Pain: No Congestive Heart Failure: No COPD: No Cerebrovascular Accident: No Diabetes: Yes Patient Takes Glucophage: No Diminished Hearing: Yes (PATIENT IS DEAF) Endocrine: Yes Gastrointestinal Disorders: No GERD: Yes Glaucoma: No Genitourinary: No Headaches: No Hepatitis: No Hiatal Hernia: No Hypertension: Yes Immune Disorder: No Implanted Vascular Access Dvce: No Kidney Stones: No Musculoskeletal: No Neurologic: No Psychiatric: Yes Reproductive: No Respiratory: No Migraines: No Myocardial Infarction: No Radiation Therapy: No Renal Failure: No Schizophrenia: Yes Seizures: No Sickle Cell Disease: No Sleep Apnea: No Thyroid Disease: No Ulcer: No Tetanus Vaccination: Unknown Influenza Vaccination: Yes Past Surgical History Narrative Surgical The patient's past surgical history is unremarkable. Abdominal Surgery: No AICD: No Arteriovenous Shunt: No Cardiac Surgery: No Ear Surgery: No Endocrine Surgery: No Eye Surgery: No Genitourinary Surgery: No Gynecologic Surgery: No Insulin Pump: No Joint Replacement: No Neurologic Surgery: No Oral Surgery: No Pacemaker: No Thoracic Surgery: No Other Surgery: No Social History Alcohol Use: Yes (OCCASSIONALLY) Tobacco Use: No Substance Use: No Allergies-Medications (Allergen,Severity, Reaction): Coded Allergies: Penicillin (Verified Allergy, Severe, unknown, 09/07/16) Purcell (Verified Allergy, Severe, unk, 09/07/16) Reported Meds & Prescriptions Reported Meds & Active Scripts Active Protonix (Pantoprazole Sodium) 20 Mg Tab 20 Mg PO DAILY 30 Days Melatonin 5 Mg Tab 5 Mg PO HS 30 Days [place] Carbonate 300 Mg Tab 150 Mg PO HS 30 Days [place] Carbonate 300 Mg Cap 300 Mg PO DAILY 30 Days Carnitor Liq (Levocarnitine) 1 Gm/10 Ml Soln 3 Ml PO TID 30 Days Haloperidol 5 Mg Tab 5 Mg PO BID 30 Days Benztropine (Benztropine Mesylate) 1 Mg Tab 0.5 Mg PO Q12HR 30 Days Lexapro (Escitalopram Oxalate) 20 Mg Tab 20 Mg PO DAILY [address] (Divalproex Sodium) 500 Mg Tabdr 1,500 Mg PO HS 30 Days Norvasc (Amlodipine Besylate) 10 Mg Tab 10 Mg PO DAILY Metformin (Metformin HCl) 1,000 Mg Tab 1,000 Mg PO BID 30 Days With meals Enalapril (Enalapril Maleate) 20 Mg Tab 20 Mg PO DAILY 30 Days Novolog Inj (Insulin Aspart) 100 Unit/Ml Inj 1 Injection SQ DIRECTED 30 Days Three times daily SQ sliding scale before meals. no need to HS dosing. Review of Systems Except as stated in HPI: all other systems reviewed are Neg General / Constitutional: No: Fever Eyes: No: Visual changes HENT: Positive: Congestion, No: Headaches Cardiovascular: Positive: Dyspnea on exertion, No: Chest Pain or Discomfort Respiratory: Positive: Cough, No: Shortness of Breath Gastrointestinal: Positive: Constipation, Changes in Bowel Habits (stools have intermittently been on), No: Nausea, Vomiting, Diarrhea, Abdominal Pain, Indigestion, Loss of Appetite Genitourinary: Positive: Dysuria, No: Urgency, Frequency Musculoskeletal: No: Pain Skin: No Rash Neurologic: Positive: Tremor, No: Weakness, Focal Abnormalities, Change in Mentation, Slurred Speech, Sensory Disturbance Psychiatric: No: Depression Endocrine: No: Polydipsia Hematologic/Lymphatic: No: Easy Bruising Physical Exam Narrative General: The patient is well-developed well-nourished male in no acute distress. The patient is deaf and video translation is available and set up at the bedside to assist with the patient's evaluation. Head and Neck exam: Head is normocephalic atraumatic. Eyes: EOMI, pupils are equal round and reactive to light. Nose: Midline septum with pink mucous membranes Mouth: Dentition unremarkable. Tacky mucus membranes. Posterior oropharynx is not erythematous. No tonsillar hypertrophy. Uvula midline. Airway patent. Neck: No palpable lymphadenopathy. No nuchal rigidity. No thyromegaly. Cardiovascular: Regular rate and rhythm without murmurs, gallops, or rubs. No pulse deficit to the extremities and simultaneous auscultation and palpation of his radial artery. Lungs: Clear to auscultation bilaterally. No wheezes, rhonchi, or rales. Abdomen: Soft, without tenderness to palpation in all 4 quadrants of the abdomen. No guarding, rebound, or rigidity. Normal bowel sounds are audible. No tenderness on palpation of McBurney's point. Extremities: No clubbing, cyanosis, or edema. 2+ pulses in all 4 extremities. No calf tenderness on palpation. Back: No spinous process tenderness to palpation. No costovertebral angle tenderness to palpation. Neurologic Exam: Cranial nerves 2-12 were intact on exam. Strength is 5/5 in all 4 extremities. No sensory deficits noted. The patient is intermittently tremulous in his upper extremities, however this waxes and wanes in severity. At times it completely resolves. Skin Exam: No rash noted. Intact skin that is warm and dry. Data Data Last Documented VS Vital Signs Date Time Temp Pulse Resp B/P Pulse Ox O2 Delivery O2 Flow Rate FiO2 09/07/16 06:32 98 Room Air 09/07/16 06:20 62 18 128/89 09/07/16 05:56 98.5 Orders Electrocardiogram (09/07/16 06:28) Complete Blood Count With Diff (09/07/16 06:28) Comprehensive Metabolic Panel (09/07/16 06:28) Creatine Kinase (Cpk) (09/07/16 06:28) Ckmb (Isoenzyme) Profile (09/07/16 06:28) Troponin I (09/07/16 06:28) B-Type Natriuretic Peptide (09/07/16 06:28) Lipase (09/07/16 06:28) Urinalysis - C+S If Indicated (09/07/16:28) Magnesium (Mg) (09/07/16 06:28) Valproic Acid (Depakene) (09/07/16 06:28) [place] (Li) (09/07/16 06:28) Beta Hydroxybutyrate (Acetone) (09/07/16 06:28) Chest, Single Ap (09/07/16 06:28) Ct Brain W/O Iv Contrast(Rout) (09/07/16 06:28) Iv Access Insert/Monitor (09/07/16:28) Ecg Monitoring (09/07/16:28) Oximetry (09/07/16 06:28) Drug Screen, Random Urine (09/07/16 06:28) Alcohol (Ethanol) (09/07/16 06:28) Salicylates (Aspirin) (09/07/16 06:28) Tylenol (Acetaminophen) (09/07/16 06:28) Sodium Chlor 0.9% 1000 Ml Inj (Ns 1000 M (09/07/16 06:30) Labs Laboratory Tests Test 09/07/16 06:30 White Blood Count 12.5 TH/MM3 Red Blood Count 4.29 MIL/MM3 Hemoglobin 11.7 GM/DL Hematocrit 35.2 % Mean Corpuscular Volume 82.0 FL Mean Corpuscular Hemoglobin 27.3 PG Mean Corpuscular Hemoglobin 33.4 % Concent Red Cell Distribution Width 13.8 % Platelet Count 204 TH/MM3 Mean Platelet Volume 8.4 FL Neutrophils (%) (Auto) 53.4 % Lymphocytes (%) (Auto) 30.7 % Monocytes (%) (Auto) 10.6 % Eosinophils (%) (Auto) 4.5 % Basophils (%) (Auto) 0.8 % Neutrophils # (Auto) 6.7 TH/MM3 Lymphocytes # (Auto) 3.8 TH/MM3 Monocytes # (Auto) 1.3 TH/MM3 Eosinophils # (Auto) 0.6 TH/MM3 Basophils # (Auto) 0.1 TH/MM3 CBC Comment DIFF FINAL Differential Comment MDM Medical Decision Making Medical Screen Exam Complete: Yes Emergency Medical Condition: Yes Medical Record Reviewed: Yes Differential Diagnosis Tremor related to lithium toxicity, versus Depakote toxicity, versus electrolyte abnormality, versus psychiatric disorder, versus intracranial abnormality Narrative Course During the course of the patients emergency department visit, the patients history, examination, and differential diagnosis were reviewed with the patient. The patient had IV access obtained and blood work sent for analysis. The patient was placed on a traffic monitor specialist with oximetry and blood pressure monitoring. An EKG was done on arrival. The patient's EKG shows a sinus bradycardia, no acute ST segment elevation. The baseline is tremulous although the patient himself is intermittently tremulous. On telemetry, the patient is noted to be in a confirmed sinus rhythm. The patient was provided normal saline 1 L IV fluid bolus as the patient's blood sugar prior to arrival was 301 and the patient has tacky mucous membranes. The patients laboratory studies and radiologic studies are pending. The patient's case was checked out to the oncoming emergency physician to disposition based on the conclusion of the patient's workup. Diagnosis Primary Impression: Tremor, coarse Sully Avendano MD Sep 07, 2016 07:02
[2016-09-07 07:09] LABS: BLOOD, URINE NEG (NEG); COMMENT (UR) CULT NOT INDICATED; CULTURE IF INDICATED CULT NOT INDICATED; GLUCOSE,URINE 300 mg/dL (NEG); KETONE, URINE NEG (NEG); NITRITE,URINE NEG (NEG); PH, URINE 5.5 (5.0-8.5); URINE COLOR LIGHT-YELLOW (YELLW/STRAW)
[2016-09-07 07:11] VITALS: BP 117/65; PULSE 66; RESP 23; TEMP 97.6; O2SAT 97
[2016-09-07 07:13] LABS: AMPHETAMINE, URINE NEG (NEG); BARBITURATES, URINE NEG (NEG); COCAINE, URINE NEG (NEG)
[2016-09-07 07:18] LABS: ANION GAP 9 MEQ/L (5-15); BICARBONATE 24.8 MEQ/L (21.0-32.0); BLOOD UREA NITROGEN 14 MG/DL (7-18); CHLORIDE 98 MEQ/L (98-107); GLOMERULAR FILTRATION RATE 61 ML/MIN (>89); POTASSIUM 4.7 MEQ/L (3.5-5.1); SODIUM (NA) 132 MEQ/L (136-145)
[2016-09-07 07:28] LABS: ALKALINE PHOSPHATASE 84 U/L (45-117); ALT (GPT) 33 U/L (12-78); AST (GOT) 16 U/L (15-37); BETA-HYDROXYBUTYRATE 0.14 MMOL/L (0.00-0.39); CREATINE KINASE 201 U/L (39-308); TOTAL BILIRUBIN ADULT 0.4 MG/DL (0.2-1.0)
--- NOTE | 2016-09-07 07:31 | RADRPT ---
EXAM DATE/TIME: 09/07/2016 07:15 [facility] COMPARISON: CHEST SINGLE AP, January 25, 2014, 0:18. INDICATIONS : Short of breath. Possible seizure/fall. MEDICAL HISTORY : None. SURGICAL HISTORY : None. ENCOUNTER: Initial ACUITY: 1 day PAIN SCORE: 0/10 LOCATION: Bilateral chest FINDINGS: Underinflated AP view of the chest demonstrates a normal-sized cardiac silhouette. No effusion, conso lidation, or pneumothorax is visualized. The bones and soft tissues demonstrate no acute finding. The re are degenerative changes of the thoracic spine. CONCLUSION: No acute cardiopulmonary abnormality is identified. Sumanth Moy MD on September 07, 2016 at 7:28 Board Certified Radiologist. This report was verified electronically.
[2016-09-07 07:32] LABS: ACETAMINOPHEN LESS THAN 2.0 MCG/ML (10.0-30.0)
[2016-09-07 07:40] LABS: CKMB 3.8 NG/ML (0.5-3.6)
--- NOTE | 2016-09-07 08:46 | RADRPT ---
EXAM DATE/TIME: 09/07/2016 08:15 [facility] COMPARISON: CT BRAIN W/O CONTRAST, February 05, 2012, 10:40. CT BRAIN W/O CONTRAST, November 24, 2014, 13:47. INDICATIONS : Altered mental status. Possible seizure. Cephalgia. RADIATION DOSE: 56.37 CTDIvol (mGy) MEDICAL HISTORY : Gastroesophageal reflux disease. Hypertension. Diabetes mellitus type 2. SURGICAL HISTORY : None. ENCOUNTER: Initial ACUITY: 1 day PAIN SCALE: 10/10 LOCATION: cranial TECHNIQUE: Multiple contiguous axial images were obtained of the head. Using automated exposure control and adj ustment of the mA and/or kV according to patient size, radiation dose was kept as low as reasonably a chievable to obtain optimal diagnostic quality images. FINDINGS: CEREBRUM: The ventricles are normal for age. No evidence of midline shift, mass lesion, hemorrhage or acute in farction. No extra-axial fluid collections are seen. POSTERIOR FOSSA: The cerebellum and brainstem are intact. The 4th ventricle is midline. The cerebellopontine angle i s unremarkable. EXTRACRANIAL: The visualized portion of the orbits is intact. SKULL: The calvaria is intact. No evidence of skull fracture. CONCLUSION: Stable brain appearance. No acute intracranial findings. Sumanth Cameron MD on September 07, 2016 at 8:43 Board Certified Radiologist. This report was verified electronically.
--- NOTE | 2016-09-07 08:55 | PD ---
Physical Exam Date Seen by Provider: Sep 07, 2016 Time Seen by Provider: 07:00 Narrative Patient seen and evaluated initially by Dr. Avendano, please see Dr. Avendano's note for further information. As per discussion with Dr. Avendano, we have agreed that this patient appears to be having tremors but the tremors are directable and seems to go away when he is talking about his issues and at rest. I have reevaluated the patient in the ER at 8:30 AM and he appears to be sleeping comfortably. Vital signs the been stable. Laboratory Tests Test 09/07/16 06:30 White Blood Count 12.5 TH/MM3 (4.0-11.0) Red Blood Count 4.29 MIL/MM3 (4.50-5.90) Hemoglobin 11.7 GM/DL (13.0-17.0) Hematocrit 35.2 % (39.0-51.0) Monocytes (%) (Auto) 10.6 % (0.0-8.0) Eosinophils (%) (Auto) 4.5 % (0.0-4.0) Monocytes # (Auto) 1.3 TH/MM3 (0-0.9) Eosinophils # (Auto) 0.6 TH/MM3 (0-0.4) Urine Glucose (UA) 300 mg/dL (NEG) Sodium Level 132 MEQ/L (136-145) Estimat Glomerular Filtration 61 ML/MIN (>89) Rate Random Glucose 222 MG/DL (74-106) Creatine Kinase MB 3.8 NG/ML (0.5-3.6) Troponin I LESS THAN 0.02 NG/ML (0.02-0.05) Albumin 3.2 GM/DL (3.4-5.0) Salicylates Level LESS THAN 1.7 MG/DL (2.8-20.0) Acetaminophen Level LESS THAN 2.0 MCG/ML (10.0-30.0) [place] Level 0.3 MEQ/L (0.5-1.5) Last [address] 09/07/16627 Signed Impressions: Service Date/Time: Wednesday, September 07, 2016 08:15 - CONCLUSION: Stable brain appearance. No acute intracranial findings. Sumanth Cameron MD Chest X-Ray 09/07/16627 Signed Impressions: Service Date/Time: Wednesday, September 07, 2016 07:15 - CONCLUSION: No acute cardiopulmonary abnormality is identified. Sumanth Moy MD Lab work and CAT scan did not show any signs of acute processes. He has some underlying leukocytosis which is unchanged from previous testing. I'm not suspecting sepsis in this case. He has no focal neurological deficits. [place] levels are unremarkable. At this point, my plan would be to release him with follow-up to primary care physician and psychiatrist at facility. Return for any worsening in symptoms as needed. The plan has been discussed with hat lacer and him and they said understanding. Data Data Last Documented VS Vital Signs Date Time Temp Pulse Resp B/P Pulse Ox O2 Delivery O2 Flow Rate FiO2 09/07/16 07:11 97.6 66 23 117/65 97 Room Air Orders Electrocardiogram (09/07/16:28) Complete Blood Count With Diff (09/07/16:28) Comprehensive Metabolic Panel (09/07/16:28) Creatine Kinase (Cpk) (09/07/16:28) Ckmb (Isoenzyme) Profile (09/07/16:28) Troponin I (09/07/16:28) B-Type Natriuretic Peptide (09/07/16:28) Lipase (09/07/16:28) Urinalysis - C+S If Indicated (09/07/16:) Magnesium (Mg) (09/07/16:28) Valproic Acid (Depakene) (09/07/16 06:28) [place] (Li) (09/07/16:28) Beta Hydroxybutyrate (Acetone) (09/07/16:28) Chest, Single Ap (09/07/16:28) Ct Brain W/O Iv Contrast(Rout) (09/07/16:28) Iv Access Insert/Monitor (09/07/16:) Ecg Monitoring (09/07/16:28) Oximetry (09/07/16:28) Drug Screen, Random Urine (09/07/16:28) Alcohol (Ethanol) (09/07/16:28) Salicylates (Aspirin) (09/07/16:28) Tylenol (Acetaminophen) (09/07/16:28) Sodium Chlor 0.9% 1000 Ml Inj (Ns 1000 M (09/07/16 06:30) CKMB (09/07/16 06:30) CKMB% (09/07/16 06:30) Labs Laboratory Tests Test 09/07/16 06:30 White Blood Count 12.5 TH/MM3 Red Blood Count 4.29 MIL/MM3 Hemoglobin 11.7 GM/DL Hematocrit 35.2 % Mean Corpuscular Volume 82.0 FL Mean Corpuscular Hemoglobin 27.3 PG Mean Corpuscular Hemoglobin 33.4 % Concent Red Cell Distribution Width 13.8 % Platelet Count 204 TH/MM3 Mean Platelet Volume 8.4 FL Neutrophils (%) (Auto) 53.4 % Lymphocytes (%) (Auto) 30.7 % Monocytes (%) (Auto) 10.6 % Eosinophils (%) (Auto) 4.5 % Basophils (%) (Auto) 0.8 % Neutrophils # (Auto) 6.7 TH/MM3 Lymphocytes # (Auto) 3.8 TH/MM3 Monocytes # (Auto) 1.3 TH/MM3 Eosinophils # (Auto) 0.6 TH/MM3 Basophils # (Auto) 0.1 TH/MM3 CBC Comment DIFF FINAL Differential Comment Urine Color LIGHT-YELLOW Urine Turbidity CLEAR Urine pH 5.5 Urine Specific [place] 1.004 Urine Protein NEG mg/dL Urine Glucose (UA) 300 mg/dL Urine Ketones NEG mg/dL Urine Occult Blood NEG Urine Nitrite NEG Urine Bilirubin NEG Urine Urobilinogen LESS THAN 2.0 MG/DL Urine Leukocyte Esterase NEG Urine RBC LESS THAN 1 /hpf Urine WBC LESS THAN 1 /hpf Microscopic Urinalysis Comment CULT NOT INDICATED Sodium Level 132 MEQ/L Potassium Level 4.7 MEQ/L Chloride Level 98 MEQ/L Carbon Dioxide Level 24.8 MEQ/L Anion Gap 9 MEQ/L Blood Urea Nitrogen 14 MG/DL Creatinine 1.23 MG/DL Estimat Glomerular Filtration 61 ML/MIN Rate Random Glucose 222 MG/DL Calcium Level 9.1 MG/DL Magnesium Level 2.0 MG/DL Total Bilirubin 0.4 MG/DL Aspartate Amino Transf 16 U/L (AST/SGOT) Alanine Aminotransferase 33 U/L (ALT/SGPT) Alkaline Phosphatase 84 U/L Total Creatine Kinase 201 U/L Creatine Kinase MB 3.8 NG/ML Troponin I LESS THAN 0.02 NG/ML B-Type Natriuretic Peptide 67 PG/ML Total Protein 7.9 GM/DL Albumin 3.2 GM/DL Lipase 218 U/L Salicylates Level LESS THAN 1.7 MG/DL Urine Opiates Screen NEG Acetaminophen Level LESS THAN 2.0 MCG/ML Urine Barbiturates Screen NEG Valproic Acid (Depakene) Level 86 MCG/ML Urine Amphetamines Screen NEG Urine Benzodiazepines Screen NEG [place] Level 0.3 MEQ/L Urine Cocaine Screen NEG Urine Cannabinoids Screen NEG Ethyl Alcohol Level LESS THAN 3 MG/DL B-Hydroxybutyrate 0.14 MMOL/L [facility] Medical Record Reviewed: Yes Supervised Visit with ABELINO: No Diagnosis Primary Impression: Tremor, coarse Disposition: 01 DISCHARGE HOME Condition: Stable Jose Darnell MD Sep 07, 2016 08:55
--- NOTE | 2016-09-07 14:25 | EKG ---
Date Performed: 09/07/2016 Time Performed: 06:44:04 PTAGE: 56 years EKG: SINUS BRADYCARDIA POSSIBLE RIGHT VENTRICULAR CONDUCTION DELAY NONSPECIFIC ST & T-WAVE ABNOR MALITY BORDERLINE ECG PREVIOUS TRACING : 01/25/2014 00.00 Compared to the previous tracing, sinus bradycardia is new DOCTOR: Merritt Ramirez Interpretating Date/Time 09/07/2016 14:24:45
== END 2016-09-07 11:05 | disposition home or self-care (01) ==
LOC: NEPE 05:54
DX: R25.1 Tremor, unspecified (principal); R30.0 Dysuria; R05 Cough; R06.02 Shortness of breath; E11.9 Type 2 diabetes mellitus without complications; I10 Essential (primary) hypertension; R94.31 Abnormal electrocardiogram [ECG] [EKG]
CPT/HCPCS: 70450; 71010; 80053; 80164; 80178; 80307; 81001; 82010; 82550; 82552; 83690; 83735; 83880; 84484; 85025; 93005; 96360; 99285; J7030

== ENCOUNTER 2017-11-22 12:50 | Observation (INO) | payer MEDICARE, OTHER ==
[2017-11-22 13:01] VITALS: BP 127/60; PULSE 95; RESP 18; TEMP 99.2; O2SAT 94
[2017-11-22] MEDS ORDERED: SODIUM CHLOR 0.9% 1000 ML INJ 1,000 ML IV ONE (14:30)
[2017-11-22] MEDS ORDERED: SODIUM CHLORIDE 0.9% FLUSH 10 ML FLUSH IVF PRN (14:30)
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
[2017-11-22 15:17] LABS: BILIRUBIN, URINE NEG (NEG); BLOOD, URINE NEG (NEG); GLUCOSE,URINE 300 mg/dL (NEG); KETONE, URINE NEG (NEG); NITRITE,URINE NEG (NEG); URINE COLOR LIGHT-YELLOW (YELLW/STRAW); URINE LEUKOCYTE ESTERASE NEG (NEG)
[2017-11-22 15:21] LABS: AUTOMATED NEUTROPHIL # 10.1 TH/MM3 (1.8-7.7); BASOPHIL # 0.1 TH/MM3 (0-0.2); BASOPHIL % 0.9 % (0.0-2.0); EOSINOPHIL # 0.3 TH/MM3 (0-0.4); HEMATOCRIT 39.2 % (39.0-51.0); HEMOGLOBIN 12.7 GM/DL (13.0-17.0); LYMPH % 19.7 % (9.0-44.0); LYMPHOCYTE # 2.9 TH/MM3 (1.0-4.8); MEAN CELL VOLUME 79.9 FL (80.0-100.0); MEAN CORPUSCULAR HGB CONC 32.5 % (32.0-36.0); MEAN PLATELET VOLUME 9.2 FL (7.0-11.0); MONO % 7.6 % (0.0-8.0); MONOCYTE # 1.1 TH/MM3 (0-0.9); NEUT % 69.8 % (16.0-70.0); PLATELET COUNT 248 TH/MM3 (150-450); RED BLOOD COUNT 4.91 MIL/MM3 (4.50-5.90); WHITE BLOOD COUNT 14.5 TH/MM3 (4.0-11.0)
[2017-11-22 15:35] LABS: ALBUMIN 3.7 GM/DL (3.4-5.0); ALT (GPT) 56 U/L (12-78); AST (GOT) 35 U/L (15-37); BICARBONATE 18.6 MEQ/L (21.0-32.0); BLOOD UREA NITROGEN 18 MG/DL (7-18); CHLORIDE 98 MEQ/L (98-107); CREATININE 1.36 MG/DL (0.60-1.30); GLOMERULAR FILTRATION RATE 54 ML/MIN (>89); GLUCOSE,RANDOM 291 MG/DL (74-106); SODIUM (NA) 131 MEQ/L (136-145)
[2017-11-22 15:36] LABS: ALKALINE PHOSPHATASE 179 U/L (45-117); TOTAL BILIRUBIN ADULT 0.3 MG/DL (0.2-1.0); TOTAL PROTEIN 8.4 GM/DL (6.4-8.2)
[2017-11-22] MEDS ORDERED: TRIA.1%T TOPICAL (16:50)
[2017-11-22] MEDS ORDERED: CIPR0.3S LEFT EAR (16:50)
[2017-11-22] MEDS ORDERED: HYDR50CA PO (16:50)
[2017-11-22] MEDS ORDERED: CLON0.1T PO (16:50)
[2017-11-22] MEDS ORDERED: HYDR-3580 PO (16:50)
[2017-11-22] MEDS ORDERED: ARTH650T6 PO (16:50)
[2017-11-22] MEDS ORDERED: DIPH25CA PO (16:50)
[2017-11-22] MEDS ORDERED: TRAZ100T10 PO (16:50)
[2017-11-22] MEDS ORDERED: MELA10TA4 PO (16:50)
[2017-11-22] MEDS ORDERED: INSU1INJ14 SQ (16:50)
[2017-11-22] MEDS ORDERED: GABA300C5 PO (16:50)
[2017-11-22] MEDS ORDERED: IBUP-232 PO (16:50)
[2017-11-22] MEDS ORDERED: LITH150C PO (16:50)
[2017-11-22] MEDS ORDERED: LIPI20TA PO (16:50)
[2017-11-22] MEDS ORDERED: WHITGEL TOPICAL (16:50)
[2017-11-22] MEDS ORDERED: TETR0.052 EACH EYE (16:50)
[2017-11-22] MEDS ORDERED: BENZ0.5T PO (16:50)
[2017-11-22] MEDS ORDERED: LITH300C2 PO (16:50)
[2017-11-22] MEDS ORDERED: LORA-474 PO (16:50)
[2017-11-22 16:58] VITALS: BP 120/60; PULSE 73; RESP 17; TEMP 98.3; O2SAT 92
--- NOTE | 2017-11-22 19:25 | PD ---
Physical Exam Time Seen by Provider: 19:25 Data Data Last Documented VS Vital Signs Date Time Temp Pulse Resp B/P (MAP) Pulse Ox O2 Delivery O2 Flow Rate FiO2 11/22/17 19:35 74 18 130/64 (86) 95 Room Air 11/22/17 16:58 98.3 Orders Orders Complete Blood Count With Diff (11/22/17 14:23) Comprehensive Metabolic Panel (11/22/17 14:23) Beta Hydroxybutyrate (Acetone) (11/22/17 14:23) Urinalysis - C+S If Indicated (11/22/17 14:23) Ecg Monitoring (11/22/17 14:23) Iv Access Insert/Monitor (11/22/17 14:23) Oximetry (11/22/17 14:23) NPO (11/22/17 14:23) Sodium Chloride 0.9% Flush (Ns Flush) (11/22/17 14:30) Sodium Chlor 0.9% 1000 Ml Inj (Ns 1000 M (11/22/17 14:30) Ct Brain W/O Iv Contrast(Rout) (11/22/17 ) Chest, Single Ap (11/22/17 ) Electrocardiogram (11/22/17 ) Diet 1800 Ada Cons Carb (11/22/17 Dinner) Admit Order (Ed Use Only) (11/22/17 20:17) [place] (Li) (11/22/17 20:15) Labs Laboratory Tests Test 11/22/17 14:30 11/22/17 14:40 Urine Color LIGHT-YELLOW Urine Turbidity CLEAR Urine pH 5.0 Urine Specific [place] 1.005 Urine Protein NEG mg/dL Urine Glucose (UA) 300 mg/dL Urine Ketones NEG mg/dL Urine Occult Blood NEG Urine Nitrite NEG Urine Bilirubin NEG Urine Urobilinogen LESS THAN 2.0 MG/DL Urine Leukocyte Esterase NEG Urine RBC LESS THAN 1 /hpf Urine WBC 1 /hpf Microscopic Urinalysis Comment CULT NOT INDICATED White Blood Count 14.5 TH/MM3 Red Blood Count 4.91 MIL/MM3 Hemoglobin 12.7 GM/DL Hematocrit 39.2 % Mean Corpuscular Volume 79.9 FL Mean Corpuscular Hemoglobin 26.0 PG Mean Corpuscular Hemoglobin Concent 32.5 % Red Cell Distribution Width 15.0 % Platelet Count 248 TH/MM3 Mean Platelet Volume 9.2 FL Neutrophils (%) (Auto) 69.8 % Lymphocytes (%) (Auto) 19.7 % Monocytes (%) (Auto) 7.6 % Eosinophils (%) (Auto) 2.0 % Basophils (%) (Auto) 0.9 % Neutrophils # (Auto) 10.1 TH/MM3 Lymphocytes # (Auto) 2.9 TH/MM3 Monocytes # (Auto) 1.1 TH/MM3 Eosinophils # (Auto) 0.3 TH/MM3 Basophils # (Auto) 0.1 TH/MM3 CBC Comment DIFF FINAL Differential Comment Blood Urea Nitrogen 18 MG/DL Creatinine 1.36 MG/DL Random Glucose 291 MG/DL Total Protein 8.4 GM/DL Albumin 3.7 GM/DL Calcium Level 9.0 MG/DL Alkaline Phosphatase 179 U/L Aspartate Amino Transf (AST/SGOT) 35 U/L Alanine Aminotransferase (ALT/SGPT) 56 U/L Total Bilirubin 0.3 MG/DL Sodium Level 131 MEQ/L Potassium Level 4.3 MEQ/L Chloride Level 98 MEQ/L Carbon Dioxide Level 18.6 MEQ/L Anion Gap 14 MEQ/L Estimat Glomerular Filtration Rate 54 ML/MIN B-Hydroxybutyrate 0.16 MMOL/L MDM Medical Record Reviewed: Yes Supervised Visit with ABELINO: No Narrative Course Please see previous providers notes for complete history of present illness. Signed out to me pending CT imaging. Briefly this is a 57-year-old male with history of CVA, bipolar disorder,schizophrenia, presents from [facility] assisted- living facility for evaluation of confusion. Throughout the day the patient has been confused according to staff and according to sister who is at bedside. Specifically the patient, who is deaf and uses sign language, was confused when signing and when writing. He was writing words that did not make any sense. This is not at all normal for him. Upon my examination the patient spells his name "Lay," believes that he is at a [facility], and believes that the year is [id number]. Usually he is able to answer these questions normally. He has had no other focal neurologic symptoms or recent illnesses. Primary care physician is Dr. Graham. CT the brain reveals no acute normalities. At this point time the plan is to admit him for further evaluation of confusion. Diagnosis Primary Impression: Confusion Admitting Information Admitting Physician Requests: Observation Bolivar Celeste Nov 22, 2017 19:25
--- NOTE | 2017-11-22 19:29 | RADRPT ---
EXAM DATE: 11/22/2017 6:40 PM EDT AGE/SEX: 57 years / Male INDICATIONS: Altered mental status. CLINICAL DATA: This is the patient's initial encounter. Patient reports that signs and symptoms have been present for 1 day and indicates a pain score of 0/10. MEDICAL/SURGICAL HISTORY: Hypertension. Diabetes. Umbilical hernia repair. RADIATION DOSE: 56.35 CTDI (mGy) COMPARISON: [facility] [place], CT BRAIN W/O CONTRAST, 09/07/2016. . TECHNIQUE: CT of the head without contrast. Using automated exposure control and adjustment of the mA and/or kV according to patient size, radiation dose was kept as low as reasonably achievable to ob tain optimal diagnostic quality images. FINDINGS: Cerebrum: The ventricles are normal for age. No evidence of midline shift, mass lesion, hemorrhage or acute infarction. No extraaxial fluid collections are seen. Posterior Fossa: The cerebellum and brainstem are intact. The 4th ventricle is midline. The cerebe llopontine angle is unremarkable. Extracranial: The visualized portion of the orbits is intact. Skull: The calvaria is intact. No evidence of skull fracture. CONCLUSION: 1. No acute intracranial abnormalities. Electronically signed by: Denny Rios MD 11/22/2017 7:27 PM EDT
[2017-11-22 19:35] VITALS: BP 130/64; PULSE 74; RESP 18; O2SAT 95
--- NOTE | 2017-11-22 20:06 | RADRPT ---
EXAM DATE: 11/22/2017 7:48 PM EDT AGE/SEX: 57 years / Male INDICATIONS: Cough. CLINICAL DATA: This is the patient's initial encounter. Patient reports that signs and symptoms have been present for 1 day and indicates a pain score of Nonresponsive. MEDICAL/SURGICAL HISTORY: . Hypertension. Diabetes. . Umbilical hernia repair. [place] [facility] [place], 09[place]. . FINDINGS: Heart size upper limits normal. Mild basilar atelectasis. No effusion. Elevated right hemidiaphragm. CONCLUSION: Elevated right hemidiaphragm. Mild basilar atelectasis. No effusion. Electronically signed by: Denny Rios MD 11/22/2017 8:05 PM EDT
[2017-11-22] MEDS ORDERED: SODIUM CHLORIDE 0.9% FLUSH 10 ML FLUSH IV FLUSH PRN ×2 (21:15→22:00)
--- NOTE | 2017-11-22 21:36 | HHI.HP ---
[facility] Service Family Medicine Primary Care Physician Jace Graham M.D. Admission Diagnosis Confusion Diagnoses: International Travel<30 Days: No Contact w/Intl Traveler<30days: No Known Affected Area: No History of Present Illness Mr. Small is a 57 y/o deaf M presenting to the ED with his sister and brother-in- law with a chief complaint of an altered mental status. As [employer] are currently unavailable, his sister assists throughout the history and exam as she is fluent in sign language. Per her report, she received multiple texts from the staff at his [facility] that he was "agitated and confused" this morning which is atypical from his baseline. She then received a report that he left the [facility] on his own and walked across the street to [place] indicating to them to call 911. He was then transported to the ED for further evaluation. Upon arriving to the ED, she states that he was altered and signing inappropriately which is "far from his normal." Initially, he complained of chest pain, and tingling in his ears, and legs. She noted that his signing was slowed and he was having difficulty coming up with words/ letters to sign. As the day progressed, and he was able to sleep she noted that he has improved approximately 50%. However, she still believes that he is not at his baseline. She has multiple concerns that the [facility] contributed to his status including "letting his blood sugar run high, altering his medications, or just not listening." She goes on to say that they have had multiple issues with the AL and that this is not the first time he has tried/left [facility] unannounced. She states that his PCP is Dr. Graham and is evaluated at the [facility] every 2 weeks. She notes no recent medication changes or other complaints the patient has had bleeding up to today. She only notes, that she was informed today that he had been sleeping an increased amount over the last 3 days. With the phlebotomist lab assistant of his sister, the patient was asked to explain what brought him to the ER. He states that he had been having chest pain over the last few days that was worse this morning. He became frustrated with the [facility] staff as he was asking for beverages to assist him with his pain, however they only supplied water. He states that his pain started to become worse and that is when he decided to leave to seek medical attention. He describes his chest pain as a "stabbing, sharp, pressure" in the middle of his chest. He does go on to state that his symptoms are worse at night when lying flat and after he eats each day. He denies any shortness of breath, diaphoresis, or nausea/ vomiting with this pain at this time. Otherwise he has no current complaints. (Abrahan Marcelino MD R2) Review of Systems ROS Limitations: Clinical Condition (Deafness/AMS), Altered Mental Status Constitutional: COMPLAINS OF: Dizziness, DENIES: Fever, Chills Endocrine: COMPLAINS OF: Polydipsia, DENIES: Polyuria Eyes: DENIES: Blurred vision, Double Vision Ears, nose, mouth, throat: COMPLAINS OF: Hearing loss, DENIES: Throat pain, Running Nose Respiratory: DENIES: Cough, Shortness of breath Cardiovascular: COMPLAINS OF: Chest pain, DENIES: Palpitations, Syncope Gastrointestinal: DENIES: Abdominal pain, Diarrhea, Nausea, Vomiting Genitourinary: DENIES: Dysuria Musculoskeletal: DENIES: Joint pain Integumentary: DENIES: Rash Hematologic/lymphatic: DENIES: Lymphadenopathy Immunologic/allergic: DENIES: Urticaria Neurologic: COMPLAINS OF: Headache Psychiatric: COMPLAINS OF: Confusion (Abrahan Marcelino MD R2) Past Family Social History Past Medical History Deafness since Anxiety Depression Bipolar disorder Schizoaffective disorder - hospitalized May 2016 HTN DM CVA - no residual deficits per family Past Surgical History None reported (Abrahan Marcelino MD R2) Allergies: Coded Allergies: penicillin G (Unverified Allergy, Severe, unknown, 11/22/17) strawberry (Unverified Allergy, Severe, unk, 11/22/17) Family History Father from [place] at 60 years Mother from small cell lung cancer Both sisters with T2DM Social History Lives at [facility] with 24 hour nursing who manage his medications. Possible girlfriend at [facility] per family. Tobacco - No reported history Alcohol - Occasional drinker, last drink was at 2017 Illicit - No reported history (Abrahan Marcelino MD R2) Physical Exam Vital Signs Vital Signs Date Time Temp Pulse Resp B/P (MAP) Pulse Ox O2 Delivery O2 Flow Rate FiO2 11/22/17 19:35 74 18 130/64 (86) 95 Room Air 11/22/17 16:58 98.3 73 17 120/60 (80) 92 Room Air 11/22/17 13:01 99.2 95 18 127/60 (82) 94 Physical Exam GENERAL: Well developed male lying in bed with sister and [id number] at the bedside. Patient communicates throughout exam and interview via sign language with sister. EYES: PERRLA. EOMI. Lids and conjunctivae reveal no gross abnormality. No scleral itcterus. ENT: NCAT. MMM. OP/OC clear. No cervical or supraclavicular LAD. NECK: Full ROM. No stiffness. No carotid bruits. Supple, no masses. Trachea midline. No thyromegaly. RESPIRATORY: CTAB, no wheezing, crackles, or increased WOB. CARDIOVASCULAR: Regular rate and rhythm with no MGR appreciated. 2+ pulses in all 4 extremities. ABDOMEN: Soft, nontender, nondistended with positive bowel sounds. No masses appreciated. EXTREMITIES: No remarkable dependent edema or varicosities. MUSCULOSKELETAL: No calf tenderness. SKIN: Essentially clear with no significant rash or lesions. Adequate skin turgor. NEUROLOGICAL: Speech-patient is deaf, but does communicate via sign language with sister. Patient becomes frustrated multiple times during interview/exam trying to sign objects/letters his sister indicates that he normally knows very well. Patient is able to maintain attention. Cranial nerves- 2 through 12 intact, except for CN 8 associated with patient's deafness.. Motor/sensory/reflexes- Face- No facial droop. No tongue deviation. RUE- 5/5 strength in all musc groups, sensation intact. Reflexes 2+. LUE- 5/5 strength in all musc groups, sensation intact. Reflexes 2+. RLE- 5/5 strength in all musc groups, sensation intact. Reflexes 2+. LLE- 5/5 strength in all musc groups, sensation intact. Reflexes 2+. Babinski-Negative Rapid alternating movements-Negative Able to name simple objects during my exam. Shot term memory intact. Able to perform heel to vickers. PSYCHIATRIC: Fair insight. No overt depression. Laboratory Laboratory Tests Test 11/22/17 14:30 11/22/17 14:40 Urine Color LIGHT-YELLOW Urine Turbidity CLEAR Urine pH 5.0 Urine Specific [place] 1.005 Urine Protein NEG Urine Glucose (UA) 300 Urine Ketones NEG Urine Occult Blood NEG Urine Nitrite NEG Urine Bilirubin NEG Urine Urobilinogen LESS THAN 2.0 Urine Leukocyte Esterase NEG Urine RBC LESS THAN 1 Urine WBC 1 Microscopic Urinalysis Comment CULT NOT INDICATED White Blood Count 14.5 Red Blood Count 4.91 Hemoglobin 12.7 Hematocrit 39.2 Mean Corpuscular Volume 79.9 Mean Corpuscular Hemoglobin 26.0 Mean Corpuscular Hemoglobin Concent 32.5 Red Cell Distribution Width 15.0 Platelet Count 248 Mean Platelet Volume 9.2 Neutrophils (%) (Auto) 69.8 Lymphocytes (%) (Auto) 19.7 Monocytes (%) (Auto) 7.6 Eosinophils (%) (Auto) 2.0 Basophils (%) (Auto) 0.9 Neutrophils # (Auto) 10.1 Lymphocytes # (Auto) 2.9 Monocytes # (Auto) 1.1 Eosinophils # (Auto) 0.3 Basophils # (Auto) 0.1 CBC Comment DIFF FINAL Differential Comment Blood Urea Nitrogen 18 Creatinine 1.36 Random Glucose 291 Total Protein 8.4 Albumin 3.7 Calcium Level 9.0 Alkaline Phosphatase 179 Aspartate Amino Transf (AST/SGOT) 35 Alanine Aminotransferase (ALT/SGPT) 56 Total Bilirubin 0.3 Sodium Level 131 Potassium Level 4.3 Chloride Level 98 Carbon Dioxide Level 18.6 Anion Gap 14 Estimat Glomerular Filtration Rate 54 B-Hydroxybutyrate 0.16 (Abrahan Marcelino MD R2) Result Diagram: 11/22/17 1440 11/22/17 1440 Imaging Last [address] 11/22/17 0000 Signed Impressions: CONCLUSION: 1. No acute intracranial abnormalities. Chest X-Ray 11/22/17 0000 Signed Impressions: CONCLUSION: Elevated right hemidiaphragm. Mild basilar atelectasis. No effusion. (Abrahan Marcelino MD R2) Caprini VTE Risk Assessment Caprini VTE Risk Assessment: Mod/High Risk (score >= 2) Caprini Risk Assessment Model Point Value = 1 Point Value = 2 Point Value = 3 Point Value = 5 Age 41-60 Minor surgery BMI > 25 kg/m2 Swollen legs Varicose veins or History of unexplained or recurrent spontaneous Oral contraceptives or hormone replacement Sepsis (< 1 month) Serious lung disease, including pneumonia (< 1 month) Abnormal pulmonary function Acute myocardial infarction Congestive heart failure (< 1 month) History of inflammatory bowel disease Medical patient at bed rest Age 61-74 Arthroscopic surgery Major open surgery (> 45 min) Laparoscopic surgery (> 45 min) Malignancy Confined to bed (> 72 hours) Immobilizing plaster cast Central venous access Age >= 75 History of VTE Family history of VTE Factor V Leiden Prothrombin [id number] Lupus anticoagulant Anticardiolipin antibodies Elevated serum homocysteine Heparin-induced thrombocytopenia Other congenital or acquired thrombophilia Stroke (< 1 month) Elective arthroplasty Hip, pelvis, or leg fracture Acute spinal cord injury (< 1 month) Prophylaxis Regimen Total Risk Factor Score Risk Level Prophylaxis Regimen 0-1 Low Early ambulation 2 Moderate Order ONE of the following: *Sequential Compression Device (SCD) *Heparin 5000 units SQ BID 3-4 Higher Order ONE of the following medications: *Heparin 5000 units SQ TID *Enoxaparin/Lovenox 40 mg SQ daily (WT < 150 kg, CrCl > 30 mL/min) *Enoxaparin/Lovenox 30 mg SQ daily (WT < 150 kg, CrCl > 10-29 mL/min) *Enoxaparin/Lovenox 30 mg SQ BID (WT < 150 kg, CrCl > 30 mL/min) AND/OR *Sequential Compression Device (SCD) 5 or more Highest Order ONE of the following medications: *Heparin 5000 units SQ TID (Preferred with Epidurals) *Enoxaparin/Lovenox 40 mg SQ daily (WT < 150 kg, CrCl > 30 mL/min) *Enoxaparin/Lovenox 30 mg SQ daily (WT < 150 kg, CrCl > 10-29 mL/min) *Enoxaparin/Lovenox 30 mg SQ BID (WT < 150 kg, CrCl > 30 mL/min) AND *Sequential Compression Device (SCD) (Abrahan Marcelino MD R2) Assessment and Plan Assessment and Plan Mr. Small is a 57-year-old deaf male presenting to the ED with altered mental status. Code Status Full code Sister with POA documentation Discussed Condition With ROSIO Lopez (Abrahan Marcelino MD R2) Attending Attestation THIS CASE WAS DISCUSSED WITH THE RESIDENT PHYSICIAN. I HAVE REVIEWED THE RECORD AND AGREE WITH THE ABOVE NOTE AND PLAN OF CARE WAS DISCUSSED. I HAVE AUTHORIZED THE ORDER FOR PLACEMENT IN OUT-PATIENT OBSERVATION STATUS. (Garth Mays MD) Problem List: (1) Altered mental status ICD Codes: R41.82 - Altered mental status, unspecified Status: Acute Plan: -CT head: No acute intracranial abnormality -MRI brain without contrast, carotid ultrasound, and echocardiogram ordered ( defer MRA due to elevated creatinine) -CBC: WBC 14.5 with 69% neutrophils, H/H 12/39, platelets 248 -CMP: Sodium 131, creatinine 1.36, glucose 291 -[place] level ordered -Alcohol, urine drug screen, RPR, vitamin B1/B12, lactic acid, ammonia, and TSH ordered -Orthostatic vital signs ordered Medications: -Home Benadryl, hydrocodone, gabapentin, trazodone, haloperidol, Ativan, hydroxyzine, and benztropine held due to altered mental status -Home Lexapro, lithium continued at this time (2) Chest pain ICD Codes: R07.9 - Chest pain, unspecified Status: Resolved Plan: -Troponins and EKGs trended 3 -Lipid panel ordered Medications: -Daily aspirin ordered (3) Creatinine elevation ICD Codes: R79.89 - Other specified abnormal findings of blood chemistry Status: Resolved Plan: Per chart review, baseline approximately 1.2 over approximately last year -CMP: Creatinine 1.36 -Repeat ordered, continue to monitor Medications: -1L NS bolus given in ED -NS at 100 ml/hr (4) DM (diabetes mellitus) ICD Codes: E11.9 - Type 2 diabetes mellitus without complications Status: Chronic Plan: -CMP: Glucose 291, creatinine 1.36 -UA: 300 glucose otherwise negative -Beta hydroxybutyrate 0.16 -Hemoglobin A1c ordered -Lipid profile ordered Medications: -Sliding scale insulin per protocol -Hold home metformin, Tresiba insulin (5) HTN (hypertension) ICD Codes: I10 - Essential (primary) hypertension Status: Chronic Plan: Medications: -Hold home clonidine, amlodipine, enalapril as patient's blood pressure is normotensive -Clonidine 0.1 mg every 6 hours as needed for blood pressure greater than 180/ 100 (6) Schizoaffective disorder, bipolar type ICD Codes: F25.0 - Schizoaffective disorder, bipolar type Status: Acute Plan: Patient does not appear manic at this time, continue to monitor -[place] level ordered -Urine drug screen ordered Medications: -Home Benadryl, hydrocodone, gabapentin, trazodone, haloperidol, Ativan, hydroxyzine, and benztropine held due to altered mental status -Home Lexapro, lithium continued at this time (7) Nutrition, metabolism, and development symptoms ICD Codes: R63.8 - Other symptoms and signs concerning food and fluid intake Status: Acute Plan: -Diet: Patient tolerating diabetic diet per report -Fluids: Patient appears well-hydrated, deferred at this time -Electrolytes: Sodium 131, glucose 291, continue to monitor -Prophylaxis: Zofran as needed for nausea/vomiting, clonidine as needed for BP greater than 180/110, DuoNeb as needed for shortness of breath, Tylenol as needed for pain (8) DVT prophylaxis Status: Acute Plan: -Early ambulation, PT ordered -SCDs (Abrahan Marcelino MD R2) Problem Qualifiers (1) Altered mental status: Qualified Codes: R41.0 - Disorientation, unspecified (2) Chest pain: Qualified Codes: R07.1 - Chest pain on breathing (3) DM (diabetes mellitus): Qualified Codes: E11.8 - Type 2 diabetes mellitus with unspecified complications; Z79.4 - [facility] (current) use of insulin (4) HTN (hypertension): Qualified Codes: I10 - Essential (primary) hypertension Abrahan Marcelino MD R2 Nov 22, 2017 21:36 Garth Mays MD Nov 23, 2017 15:11
[2017-11-22 22:10] VITALS: BP 118/67; PULSE 63; RESP 16; TEMP 98.7; O2SAT 91
[2017-11-22 23:50] LABS: TROPONIN I LESS THAN 0.02 NG/ML (0.02-0.05)
[2017-11-23] VITALS (10 sets, daily range): BP systolic 110–148; BP diastolic 58–89; PULSE 59–80; RESP 16–20; TEMP 98–98.9; O2SAT 93–95
[2017-11-23] MEDS ORDERED: GLUCAGON 1 MG/ML VIAL OTHER PRN (01:30)
[2017-11-23] MEDS ORDERED: DEXTROSE 50% IN WATER 50 ML VIAL(D50) IV PUSH PRN (01:30)
[2017-11-23] MEDS ORDERED: ACETAMINOPHEN 325 MG TAB PO PRN (01:45)
[2017-11-23] MEDS ORDERED: RESP: ALBUTEROL 2.5 MG/IPRATROPIUM 0.5 MG NEB (PRN) NEB (02:45)
[2017-11-23] MEDS ORDERED: cloNIDine HCL 0.1 MG TAB PO PRN (02:45)
[2017-11-23] MEDS ORDERED: ONDANSETRON ODT 4 MG TAB PO PRN (03:00)
[2017-11-23] MEDS ORDERED: PILL SPLITTER OTHER PRN (03:00)
[2017-11-23 04:32] LABS: ALBUMIN 3.5 GM/DL (3.4-5.0); BICARBONATE 23.6 MEQ/L (21.0-32.0); BLOOD UREA NITROGEN 20 MG/DL (7-18); CALCIUM 9.1 MG/DL (8.5-10.1); CHLORIDE 102 MEQ/L (98-107); CREATININE 1.22 MG/DL (0.60-1.30); GLOMERULAR FILTRATION RATE 61 ML/MIN (>89); GLUCOSE,RANDOM 259 MG/DL (74-106); MAGNESIUM 1.9 MG/DL (1.5-2.5); SODIUM (NA) 135 MEQ/L (136-145)
[2017-11-23 04:33] LABS: ALT (GPT) 47 U/L (12-78); AST (GOT) 25 U/L (15-37)
[2017-11-23] MEDS: SODIUM CHLOR 0.9% 1000 ML INJ 1,000 ML IV SCH ×3 (04:34→23:45)
[2017-11-23 04:58] LABS: ALKALINE PHOSPHATASE 159 U/L (45-117); PHOSPHORUS 2.8 MG/DL (2.5-4.9); TOTAL BILIRUBIN ADULT 0.4 MG/DL (0.2-1.0); TOTAL PROTEIN 7.7 GM/DL (6.4-8.2); TROPONIN I LESS THAN 0.02 NG/ML (0.02-0.05)
[2017-11-23 07:10] LABS: AUTOMATED NEUTROPHIL # 8.4 TH/MM3 (1.8-7.7); BASOPHIL # 0.1 TH/MM3 (0-0.2); BASOPHIL % 0.6 % (0.0-2.0); EOSINOPHIL # 0.3 TH/MM3 (0-0.4); EOSINOPHIL % 2.5 % (0.0-4.0); HEMATOCRIT 38.4 % (39.0-51.0); HEMOGLOBIN 12.7 GM/DL (13.0-17.0); LYMPH % 27.2 % (9.0-44.0); LYMPHOCYTE # 3.7 TH/MM3 (1.0-4.8); MEAN CELL VOLUME 79.9 FL (80.0-100.0); MEAN CORPUSCULAR HEMOGLOBIN 26.5 PG (27.0-34.0); MEAN CORPUSCULAR HGB CONC 33.2 % (32.0-36.0); MEAN PLATELET VOLUME 9.6 FL (7.0-11.0); MONO % 8.4 % (0.0-8.0); MONOCYTE # 1.1 TH/MM3 (0-0.9); NEUT % 61.3 % (16.0-70.0); PLATELET COUNT 225 TH/MM3 (150-450); RED BLOOD COUNT 4.81 MIL/MM3 (4.50-5.90); RED CELL DISTRIBUTION WIDTH 14.6 % (11.6-17.2); WHITE BLOOD COUNT 13.6 TH/MM3 (4.0-11.0)
[2017-11-23] MEDS ORDERED: SODIUM CHLORIDE 0.9% FLUSH 10 ML FLUSH IV FLUSH SCH (09:00)
[2017-11-23] MEDS: TRIAMCINOLONE ACETONIDE 0.1% CREAM 15 GM TOPICAL SCH ×3 (09:00→18:00)
[2017-11-23] MEDS: PETROLATUM 30 GM TUBE TOPICAL SCH ×2 (09:00→21:00)
[2017-11-23] MEDS ORDERED: [UNRECOGNIZED DRUG - OTHER] LEFT EAR SCH (09:00)
[2017-11-23] MEDS: NAPHAZOLINE HCL 0.012% OPHT SOLN 15 ML BOTTLE EACH EYE SCH ×3 (09:01→17:40)
--- NOTE | 2017-11-23 09:01 | RADRPT ---
EXAM DATE: 11/23/2017 8:41 AM EDT AGE/SEX: 57 years / Male INDICATIONS: Cerebrovascular accident. CLINICAL DATA: This is the patient's initial encounter. Patient reports that signs and symptoms have been present for 1 day and indicates a pain score of 0/10. MEDICAL/SURGICAL HISTORY: Hypertension. Hypercholesterolemia. Gastroesophageal reflux disease . Glasses. Scoliosis. Diabetes. Schizophrenia. Depression. Anxiety. Chest pain. . COMPARISON: No prior [facility] exams available for comparison. VELOCITY PARAMETERS: ICA/CCA Ratio: Right 1.2 , Left 0.6 ICA: Right 110.3 cm/sec, Left 79.0 cm/sec CCA: Right 90.8 cm/sec, Left 131.8 cm/sec ECA: Right 148.9 cm/sec, Left 72.4 cm/sec Vertebral: Right 45.2 cm/sec antegrade, Left 32.0 cm/sec antegrade FINDINGS: Right Carotid: There is mild to moderate noncalcified plaque throughout the common carotid artery wi th mild calcified and noncalcified plaque in the carotid bulb. Left Carotid: There is mild plaque in the common carotid artery. Mild atherosclerotic plaque is pres ent in the carotid bulb. Other: None. CONCLUSION: 1. Right Internal Carotid Artery: Findings indicate <50% stenosis. 2. Left Internal Carotid Artery: Findings indicate <50% stenosis. Electronically signed by: Sumanth Moy MD 11/23/2017 9:00 AM EDT
[2017-11-23] MEDS: PANTOPRAZOLE SOD 20 MG DELAYED RELEASE TAB PO SCH (09:02)
[2017-11-23] MEDS: ESCITALOPRAM OXALATE 20 MG TAB PO SCH (09:02)
[2017-11-23] MEDS: ASPIRIN 81 MG CHEW TAB PO SCH (09:02)
[2017-11-23] MEDS: INSULIN ASPART SUPPLEMENTAL SCALE SQ SCH ×4 (09:05→22:01)
[2017-11-23] MEDS: SODIUM CHLORIDE 0.9% FLUSH 10 ML FLUSH IV FLUSH SCH ×2 (11:50→21:00)
[2017-11-23] MEDS ORDERED: LORazepam 2 MG/ML VIAL IV PUSH ONE (12:00)
--- NOTE | 2017-11-23 13:06 | RADRPT ---
EXAM DATE: 11/23/2017 12:52 PM EDT AGE/SEX: 57 years / Male INDICATIONS: Confusion. Dizziness. CLINICAL DATA: This is the patient's subsequent encounter. Patient reports that signs and symptoms h ave been present for 2 days and indicates a pain score of 0/10. MEDICAL/SURGICAL HISTORY: Hypertension. Diabetes mellitus type II. None. COMPARISON: No prior [facility] exams available for comparison. TECHNIQUE: Multiplanar, multisequence examination of the brain was performed without contrast. FINDINGS: There is slight convex deformity of the superolateral wall of the left lateral ventricle with some ad jacent periventricular white matter T2 prolongation. This appearance may reflect remote parenchymal i njury of some sort. Brain is elsewhere symmetric and unremarkable. There is no evidence of mass or he morrhage. There is nothing to suggest acute infarction. The extracranial structures are benign and in tact. CONCLUSION: No acute intracranial findings Electronically signed by: Sumanth Cameron MD 11/23/2017 1:04 PM EDT
--- NOTE | 2017-11-23 15:05 | HHI.HP ---
[facility] Service Family Medicine Primary Care Physician Jace Graham M.D. Admission Diagnosis Confusion Diagnoses: (1) Altered mental status (2) Chest pain (3) Creatinine elevation (4) DM (diabetes mellitus) (5) HTN (hypertension) (6) Schizoaffective disorder, bipolar type (7) Nutrition, metabolism, and development symptoms (8) DVT prophylaxis International Travel<30 Days: No Contact w/Intl Traveler<30days: No Known Affected Area: No History of Present Illness Patient seen on medical rounds this morning with resident team. He is sitting up in bed and eating breakfast, his sister is at the bedside. He appears to be in good health and lucid at this time. Sister states that he is back to his baseline and does not seem to be confused at all anymore. In talking to the patient, he complains of some chronic left shoulder pain, however he denies any acute issues such as pain or confusion. He states that he is thinking clearly and feels well. He is oriented to person place and year. In summary, this is a 57-year-old male who presents to the emergency department from his [facility] for agitation and confusion. He is deaf and has several psychiatric issues requiring multiple medications and apparently over the course of the weekend he became altered and confused at his assisted living center. He apparently walked out of his [facility], walked across the street and had employees at a [employer] for assistance. He was transported to the emergency department for further evaluation. Per his sister and contact with the [facility], he has been signing inappropriately and having difficulty finding words which is very unlike him. Per the sister, she is concerned that he is not getting his medications appropriately at his [facility]. He is on several psychiatric medications and her concern is that he is either not getting them or getting the wrong medications and she was hoping to have his medications evaluated and simplified if possible. Past Family Social History Past Medical History Deafness since Anxiety Depression Bipolar disorder Schizoaffective disorder - hospitalized May 2016 HTN DM CVA - no residual deficits per family Past Surgical History None reported Allergies: Coded Allergies: penicillin G (Unverified Allergy, Severe, unknown, 11/22/17) strawberry (Unverified Allergy, Severe, unk, 11/22/17) Family History Father from [place] at 60 years Mother from small cell lung cancer Both sisters with T2DM Social History Lives at [facility] with 24 hour nursing who manage his medications. Possible girlfriend at [facility] per family. Tobacco - No reported history Alcohol - Occasional drinker, last drink was at [place] 2018 Illicit - No reported history Physical Exam Vital Signs Vital Signs Date Time Temp Pulse Resp B/P (MAP) Pulse Ox O2 Delivery O2 Flow Rate FiO2 11/23/17 12:59 98.9 62 20 127/66 (86) 95 11/23/17 12:43 72 11/23/17 08:50 98.0 67 18 123/68 (86) 93 148/89 (108) 122/69 (86) 11/23/17 03:40 98.4 67 17 110/71 (84) 93 11/23/17 02:00 63 11/22/17 22:10 98.7 63 16 118/67 (84) 91 11/22/17 22:02 11/22/17 19:35 74 18 130/64 (86) 95 Room Air 11/22/17 16:58 98.3 73 17 120/60 (80) 92 Room Air Physical Exam GENERAL: Well developed male sitting up in bed in no obvious distress EYES: PERRLA. EOMI. RESPIRATORY: CTAB, no wheezing, crackles, or increased WOB. CARDIOVASCULAR: Regular rate and rhythm with no MGR appreciated. ABDOMEN: Soft, nontender, nondistended EXTREMITIES: No remarkable dependent edema or varicosities. SKIN: Essentially clear with no significant rash or lesions. Adequate skin turgor. NEUROLOGICAL: Speech-patient is deaf, but does communicate via sign language with sister. Patient is answering questions appropriately today Laboratory Laboratory Tests Test 11/22/17 20:42 11/22/17 22:55 11/22/17 23:04 11/22/17 23:09 [place] Level 0.4 Urine Opiates Screen NEG Urine Barbiturates Screen POS Urine Amphetamines Screen NEG Urine Benzodiazepines Screen NEG Urine Cocaine Screen NEG Urine Cannabinoids Screen NEG Rapid Plasma Reagin NON-REACTIVE Lactic Acid Level 1.9 Ammonia 34 Total Creatine Kinase 248 Creatine Kinase MB 2.0 Troponin I LESS THAN 0.02 Test 11/23/17 03:30 11/23/17 06:05 Blood Urea Nitrogen 20 Creatinine 1.22 Random Glucose 259 Total Protein 7.7 Albumin 3.5 Calcium Level 9.1 Phosphorus Level 2.8 Magnesium Level 1.9 Alkaline Phosphatase 159 Aspartate Amino Transf (AST/SGOT) 25 Alanine Aminotransferase (ALT/SGPT) 47 Total Bilirubin 0.4 Sodium Level 135 Potassium Level 4.2 Chloride Level 102 Carbon Dioxide Level 23.6 Anion Gap 9 Estimat Glomerular Filtration Rate 61 Total Creatine Kinase 226 Creatine Kinase MB 1.8 Troponin I LESS THAN 0.02 Vitamin B12 Level 290 Thyroid Stimulating Hormone 3rd Gen 0.697 Ethyl Alcohol Level LESS THAN 3 White Blood Count 13.6 Red Blood Count 4.81 Hemoglobin 12.7 Hematocrit 38.4 Mean Corpuscular Volume 79.9 Mean Corpuscular Hemoglobin 26.5 Mean Corpuscular Hemoglobin Concent 33.2 Red Cell Distribution Width 14.6 Platelet Count 225 Mean Platelet Volume 9.6 Neutrophils (%) (Auto) 61.3 Lymphocytes (%) (Auto) 27.2 Monocytes (%) (Auto) 8.4 Eosinophils (%) (Auto) 2.5 Basophils (%) (Auto) 0.6 Neutrophils # (Auto) 8.4 Lymphocytes # (Auto) 3.7 Monocytes # (Auto) 1.1 Eosinophils # (Auto) 0.3 Basophils # (Auto) 0.1 CBC Comment DIFF FINAL Differential Comment Result Diagram: 11/23/1705 11/23/17 0330 Imaging Last 72 hours Impressions Carotid Artery Ultrasound 11/23/17 Signed Impressions: CONCLUSION: 1. Right Internal Carotid Artery: Findings indicate <50% stenosis. 2. Left Internal Carotid Artery: Findings indicate <50% stenosis. Brain MRI 11/23/17 Signed Impressions: CONCLUSION: No acute intracranial findings Head CT 11/22/17 Signed Impressions: CONCLUSION: 1. No acute intracranial abnormalities. Chest X-Ray 11/22/17 Signed Impressions: CONCLUSION: Elevated right hemidiaphragm. Mild basilar atelectasis. No effusion. Caprini VTE Risk Assessment Caprini VTE Risk Assessment: Mod/High Risk (score >= 2) Caprini Risk Assessment Model Point Value = 1 Point Value = 2 Point Value = 3 Point Value = 5 Age 41-60 Minor surgery BMI > 25 kg/m2 Swollen legs Varicose veins or History of unexplained or recurrent spontaneous Oral contraceptives or hormone replacement Sepsis (< 1 month) Serious lung disease, including pneumonia (< 1 month) Abnormal pulmonary function Acute myocardial infarction Congestive heart failure (< 1 month) History of inflammatory bowel disease Medical patient at bed rest Age 61-74 Arthroscopic surgery Major open surgery (> 45 min) Laparoscopic surgery (> 45 min) Malignancy Confined to bed (> 72 hours) Immobilizing plaster cast Central venous access Age >= 75 History of VTE Family history of VTE Factor V Leiden Prothrombin [id number] Lupus anticoagulant Anticardiolipin antibodies Elevated serum homocysteine Heparin-induced thrombocytopenia Other congenital or acquired thrombophilia Stroke (< 1 month) Elective arthroplasty Hip, pelvis, or leg fracture Acute spinal cord injury (< 1 month) Prophylaxis Regimen Total Risk Factor Score Risk Level Prophylaxis Regimen 0-1 Low Early ambulation 2 Moderate Order ONE of the following: *Sequential Compression Device (SCD) *Heparin 5000 units SQ BID 3-4 Higher Order ONE of the following medications: *Heparin 5000 units SQ TID *Enoxaparin/Lovenox 40 mg SQ daily (WT < 150 kg, CrCl > 30 mL/min) *Enoxaparin/Lovenox 30 mg SQ daily (WT < 150 kg, CrCl > 10-29 mL/min) *Enoxaparin/Lovenox 30 mg SQ BID (WT < 150 kg, CrCl > 30 mL/min) AND/OR *Sequential Compression Device (SCD) 5 or more Highest Order ONE of the following medications: *Heparin 5000 units SQ TID (Preferred with Epidurals) *Enoxaparin/Lovenox 40 mg SQ daily (WT < 150 kg, CrCl > 30 mL/min) *Enoxaparin/Lovenox 30 mg SQ daily (WT < 150 kg, CrCl > 10-29 mL/min) *Enoxaparin/Lovenox 30 mg SQ BID (WT < 150 kg, CrCl > 30 mL/min) AND *Sequential Compression Device (SCD) Assessment and Plan Assessment and Plan Mr. Small is a 57-year-old deaf male presenting to the ED with altered mental status. Problem List: (1) Altered mental status ICD Codes: R41.82 - Altered mental status, unspecified Status: Acute Plan: Patient appears to be back at baseline today per both the patient and his sister. Imaging: Brain MRI - Slight convex deformity of the superolateral wall of the left lateral ventricle with some adjacent periventricular white matter T2 prolongation. This appearance may reflect remote parenchymal injury of some sort. Brain is elsewhere symmetric and unremarkable. There is no evidence of mass or hemorrhage. There is nothing to suggest acute infarction. CT head - No acute intracranial abnormality Carotid ultrasound - less than 50% stenosis bilaterally Lab work: CBC significant for leukocytosis of 13.6 but no evidence of infection Troponin less than 0.02 Vitamin B12 290 within normal limits RPR nonreactive TSH 0.697 within normal limits Hemoglobin A1c pending Urine tox screen positive for her bed to its [place] level 0.4 (low) Ethyl alcohol less than 3 Beta hydroxybutyrate 0.16 within normal limits Urinalysis positive for glucose level of 300, otherwise negative Medications: -Home Benadryl, hydrocodone, gabapentin, trazodone, haloperidol, Ativan, hydroxyzine, and benztropine held due to altered mental status -Home Lexapro, lithium continued at this time Psychiatry has been consulted to evaluate patient's psychiatric medication list for appropriateness. Patient is not in control of his medications at his [facility] and sister is concerned that he is not getting his medications as prescribed or that they may be causing him to be altered (2) Chest pain ICD Codes: R07.9 - Chest pain, unspecified Status: Resolved Plan: Chest pain has resolved Troponins and EKGs trended 3 are all negative Medications: -Daily aspirin ordered (3) DM (diabetes mellitus) ICD Codes: E11.9 - Type 2 diabetes mellitus without complications Status: Chronic Plan: Blood glucose has remained elevated and patient required 5 units of regular insulin today Hemoglobin A1c pending Beta hydroxybutyrate within normal limits at 0.16 Restart home Tresiba insulin and metformin Continue cover with sliding scale (4) Schizoaffective disorder, bipolar type ICD Codes: F25.0 - Schizoaffective disorder, bipolar type Status: Acute Plan: Patient does not appear manic at this time -[place] level low at 0.4 -Urine drug screen positive only for barbiturates Medications: -Home Benadryl, hydrocodone, gabapentin, trazodone, haloperidol, Ativan, hydroxyzine, and benztropine held due to altered mental status -Home Lexapro, lithium continued at this time (5) Creatinine elevation ICD Codes: R79.89 - Other specified abnormal findings of blood chemistry Status: Resolved Plan: Per chart review, baseline approximately 1.2 over approximately last year CMP: Creatinine 1.36 on arrival, 1.22 today Medications: -1L NS bolus given in ED -NS at 100 ml/hr (6) HTN (hypertension) ICD Codes: I10 - Essential (primary) hypertension Status: Chronic Plan: Medications: -Hold home clonidine, amlodipine, enalapril as patient's blood pressure is normotensive -Clonidine 0.1 mg every 6 hours as needed for blood pressure greater than 180/ 100 (7) Nutrition, metabolism, and development symptoms ICD Codes: R63.8 - Other symptoms and signs concerning food and fluid intake Status: Acute Plan: -Diet: Patient tolerating diabetic diet per report -Fluids: Patient appears well-hydrated, deferred at this time -Electrolytes: Sodium 131, glucose 291, continue to monitor -Prophylaxis: Zofran as needed for nausea/vomiting, clonidine as needed for BP greater than 180/110, DuoNeb as needed for shortness of breath, Tylenol as needed for pain (8) DVT prophylaxis Status: Acute Plan: -Early ambulation, PT ordered -SCDs Problem Qualifiers (1) Altered mental status: Qualified Codes: R41.0 - Disorientation, unspecified (2) Chest pain: Qualified Codes: R07.1 - Chest pain on breathing (3) DM (diabetes mellitus): Qualified Codes: E11.8 - Type 2 diabetes mellitus with unspecified complications; 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
--- NOTE | 2017-11-23 15:23 | EKG ---
Date Performed: 11/22/2017 Time Performed: 20:03:02 PTAGE: 57 years EKG: Sinus rhythm POSSIBLE RIGHT VENTRICULAR CONDUCTION DELAY NONSPECIFIC T-WAVE ABNORMALITY BORDERLINE ECG PREVIOUS TRACING 09/07/16 Since the prior tracing, the patient has developed early R-wave trans ition, but when allowing for the marked baseline artifact on the prior tracing, there has been no oth er gross serial change. DOCTOR: Vaishali Bull Interpretating Date/Time 11/23/2017 15:21:24
--- NOTE | 2017-11-23 17:05 | EKG ---
Date Performed: 11/23/2017 Time Performed: 03:42:33 PTAGE: 57 years EKG: Sinus rhythm BORDERLINE LEFT AXIS DEVIATION INCOMPLETE RIGHT BUNDLE BRANCH BLOCK NONSPECIFIC T-WAVE ABNORMALITY B ORDERLINE ECG Since the PREVIOUS TRACING , no significant change noted PREVIOUS TRACIN11/22/2017 20.03 DOCTOR: Vaishali Bull Interpretating Date/Time 11/23/2017 17:02:26
--- NOTE | 2017-11-23 17:19 | EKG ---
Date Performed: 11/23/2017 Time Performed: 10:02:50 PTAGE: 57 years EKG: Sinus rhythm BORDERLINE LEFT AXIS DEVIATION INCOMPLETE RIGHT BUNDLE BRANCH BLOCK MINIMAL VOLTAGE CRITERIA FOR LVH , CONSIDER NORMAL VARIANT NONSPECIFIC T-WAVE ABNORMALITY BORDERLINE ECG PREVIOUS TRACING : 11/23/2017 03.42 Since the previous tracing, no significant change noted DOCTOR: Meryl Encarnacion Interpretating Date/Time 11/23/2017 17:17:47
[2017-11-23] MEDS ORDERED: INSULIN DEGLUDEC 30 UNIT SQ SCH (18:30)
[2017-11-23] MEDS ORDERED: ATORVASTATIN 20 MG TAB PO SCH (21:00)
[2017-11-23] MEDS ORDERED: LITHIUM CARBONATE 300 MG TAB PO SCH (21:00)
[2017-11-23] MEDS ORDERED: LITHIUM CARBONATE 300 MG CAP PO SCH (21:00)
[2017-11-23] MEDS: metFORMIN HCL 500 MG TAB PO SCH (21:58)
[2017-11-23 23:46] LABS: TROPONIN I LESS THAN 0.02 NG/ML (0.02-0.05)
[2017-11-24] VITALS (7 sets, daily range): BP systolic 124–165; BP diastolic 72–87; PULSE 61–77; RESP 16–20; TEMP 96.7–98.7; O2SAT 92–96
--- NOTE | 2017-11-24 07:09 | HHI.DCPOC ---
Discharge Care Plan Diagnosis: (1) Altered mental status Goals to Promote Your Health * To prevent worsening of your condition and complications * To maintain your health at the optimal level Directions to Meet Your Goals Take your medications as prescribed Follow your dietary instruction Follow activity as directed Keep your appointments as scheduled Take your immunizations and boosters as scheduled If your symptoms worsen call your PCP, if no PCP go to Urgent Care Center or Emergency Room Smoking is Dangerous to Your Health. Avoid second hand smoke Call the 24-hour hour crisis hotline for domestic abuse at Abrahan Marcelino MD R2 Nov 24, 2017 07:09
[2017-11-24 07:17] LABS: AUTOMATED NEUTROPHIL # 8.4 TH/MM3 (1.8-7.7); BASOPHIL # 0.1 TH/MM3 (0-0.2); BASOPHIL % 0.6 % (0.0-2.0); EOSINOPHIL # 0.4 TH/MM3 (0-0.4); EOSINOPHIL % 2.9 % (0.0-4.0); HEMATOCRIT 38.5 % (39.0-51.0); HEMOGLOBIN 12.5 GM/DL (13.0-17.0); LYMPH % 26.1 % (9.0-44.0); LYMPHOCYTE # 3.5 TH/MM3 (1.0-4.8); MEAN CELL VOLUME 80.4 FL (80.0-100.0); MEAN CORPUSCULAR HEMOGLOBIN 26.1 PG (27.0-34.0); MEAN CORPUSCULAR HGB CONC 32.5 % (32.0-36.0); MEAN PLATELET VOLUME 9.2 FL (7.0-11.0); MONOCYTE # 0.9 TH/MM3 (0-0.9); NEUT % 63.4 % (16.0-70.0); PLATELET COUNT 227 TH/MM3 (150-450); RED BLOOD COUNT 4.79 MIL/MM3 (4.50-5.90); RED CELL DISTRIBUTION WIDTH 14.8 % (11.6-17.2); WHITE BLOOD COUNT 13.3 TH/MM3 (4.0-11.0)
[2017-11-24 07:39] LABS: BICARBONATE 22.7 MEQ/L (21.0-32.0); CALCIUM 9.4 MG/DL (8.5-10.1); CREATININE 1.05 MG/DL (0.60-1.30)
[2017-11-24 07:42] LABS: CHOLESTEROL/ HDL RATIO 3.7 RATIO
[2017-11-24] MEDS ORDERED: INSULIN DEGLUDEC 30 UNIT SQ SCH (09:00)
[2017-11-24] MEDS: PETROLATUM 30 GM TUBE TOPICAL SCH (09:00)
[2017-11-24] MEDS: TRIAMCINOLONE ACETONIDE 0.1% CREAM 15 GM TOPICAL SCH ×2 (09:00→13:00)
[2017-11-24] MEDS: SODIUM CHLORIDE 0.9% FLUSH 10 ML FLUSH IV FLUSH SCH (09:00)
[2017-11-24] MEDS: PANTOPRAZOLE SOD 20 MG DELAYED RELEASE TAB PO SCH (10:07)
[2017-11-24] MEDS: ESCITALOPRAM OXALATE 20 MG TAB PO SCH (10:07)
[2017-11-24] MEDS: ASPIRIN 81 MG CHEW TAB PO SCH (10:08)
[2017-11-24] MEDS: metFORMIN HCL 500 MG TAB PO SCH (10:08)
[2017-11-24] MEDS: SODIUM CHLOR 0.9% 1000 ML INJ 1,000 ML IV SCH (10:09)
[2017-11-24] MEDS: INSULIN ASPART SUPPLEMENTAL SCALE SQ SCH ×2 (10:10→13:50)
[2017-11-24] MEDS: NAPHAZOLINE HCL 0.012% OPHT SOLN 15 ML BOTTLE EACH EYE SCH ×2 (10:10→13:00)
--- NOTE | 2017-11-24 13:21 | PD.PSY.CON ---
Provisional Diagnosis Admission Date Nov 22, 2017 at 20:18 [place] I. Schizoaffective disorder [place] II. Deferred History of Present Illness Service Psychiatry Consult Requested By Medicine Reason for Consult Medication adjustment Primary Care Physician Jace Graham M.D. HPI The patient is 57-year-old man, domiciled in a long-term, [facility] in [place], single, unemployed, with an extensive psychiatric history of schizoaffective disorder, multiple psychiatric hospitalization, ER visits, last hospitalization here in [place] in 2016 under the care of Dr. Cuellar, the recommendation reviewed, the patient is in numerous psychotropics including Haldol 5 mg twice daily, Benadryl 5 mg 3 times daily, lithium 450 mg at bedtime , trazodone 200 mg at bedtime, escitalopram 20 mg, gabapentin 300 mg 3 times daily, hydroxyzine 50 mg every 8 hours as needed, benztropine 0.5 mg twice daily , psychiatric care with a visiting psychiatrist, last time seen by psychiatrist was last Wednesday he was found based, he has medical history of diabetes, legal deafness and hypertension, who presents to the emergency department from his [facility] for agitation and confusion. He is deaf and has several psychiatric issues requiring multiple medications and apparently over the course of the weekend he became altered and confused at his assisted living center. He apparently walked out of his [facility], walked across the street and had employees at a [employer] for assistance. He was transported to the emergency department for further evaluation. Per his sister and contact with the [facility], he has been signing inappropriately and having difficulty finding words which is very unlike him. Consulted to psychiatry to revise medication regimen. EMR was reviewed. Case widely discussed with primary medical team. Collateral information from his sister Mya munson obtained. His arrival to the ER his lithium level was 0.4. Brain MRI - Slight convex deformity of the superolateral wall of the left lateral ventricle with some adjacent periventricular white matter T2 prolongation. This appearance may reflect remote parenchymal injury of some sort. Brain is elsewhere symmetric and unremarkable. CT head, No acute intracranial abnormality. Her sister told me that the patient has being a baseline, but she is very concerned about being over medicated. She confirmed with nursing that the patient did not got 1 of the doses of lithium during the weekend which can explain his subtherapeutic level. Other than that, she says that the patient has being at baseline, with an appropriate response to current medication regimen behaviorally and emotionally, with the exception of the patient at time is too sedated. She does not have any major safety concern at this moment. She already made sure that the patient is going to be seen by outpatient psychiatrist as soon as possible. On psychiatric evaluation the patient is calm, cooperative and pleasant. He immediately recognized me from previous encounters. Communication was effective through writing. Patient reports good mood, he says that he feels much better. He denies symptoms of depression. He denies suicidal enemas ideation, he denies visual and auditory hallucinations. He reports good sleep, good appetite, actually he is asking for his breakfast. Patient is oriented 3. He does not seem to be psychotic. No agitation or behavioral dysregulation present at this moment. Patient denies the use of alcohol and illegal drugs. Review of Systems Constitutional: DENIES: Diaphoretic episodes, Fatigue, Fever, Weight gain, Weight loss, Chills, Dizziness, Change in appetite, Night Sweats Endocrine: DENIES: Heat/cold intolerance, Polydipsia, Polyuria, Polyphagia Eyes: DENIES: Blurred vision, Diplopia, Eye inflammation, Eye pain, Vision loss , Photosensitivity, Double Vision Ears, nose, mouth, throat: DENIES: Tinnitus, Hearing loss, Vertigo, Nasal discharge, Oral lesions, Throat pain, Hoarseness, Ear Pain, Running Nose, Epistaxis, Sinus Pain, Toothache, Odynophagia Respiratory: DENIES: Apneas, Cough, Snoring, Wheezing, Hemoptysis, Sputum production, Shortness of breath Cardiovascular: DENIES: Chest pain, Palpitations, Syncope, Dyspnea on Exertion , PND, Lower Extremity Edema, Orthopnea, Claudication Gastrointestinal: DENIES: Abdominal pain, Black stools, Bloody stools, Constipation, Diarrhea, Nausea, Vomiting, Difficulty Swallowing, Anorexia Genitourinary: DENIES: Sexual dysfunction, Urinary frequency, Urinary incontinence, Urgency, Hematuria, Dysuria, Nocturia, Penile Discharge, Testicular Pain, Testicular Swelling Musculoskeletal: DENIES: Joint pain, Muscle aches, Stiffness, Joint Swelling, Back pain, Neck pain Hematologic/lymphatic: DENIES: Bruising, Lymphadenopathy Immunologic/allergic: DENIES: Eczema, Urticaria Neurologic: DENIES: Abnormal gait, Headache, Localized weakness, Paresthesias, Seizures, Speech Problems, Tremor, Poor Balance Psychiatric: COMPLAINS OF: Confusion, DENIES: Anxiety, Mood changes, Depression , Hallucinations, Agitation, Suicidal Ideation, Homicidal Ideation, Delusions Past Family Social History Coded Allergies: penicillin G (Unverified Allergy, Severe, unknown, 11/22/17) strawberry (Unverified Allergy, Severe, unk, 11/22/17) Active Scripts Pantoprazole (Protonix) 20 Mg Tab, 20 MG PO DAILY for Health for 30 Days, TAB 0 Refills Prov:Chetan Cuellar MD 08/12/16 Haloperidol (Haloperidol) 5 Mg Tab, 5 MG PO BID for Mental Health for 30 Days, TAB 0 Refills Prov:Chetan Cuellar MD 08/12/16 Escitalopram (Lexapro) 20 Mg Tab, 20 MG PO DAILY for Depression Control for 30 Days, TAB 0 Refills Prov:Chetan Cuellar MD 08/12/16 Amlodipine (Norvasc) 10 Mg Tab, 10 MG PO DAILY for Blood Pressure Management, # 30 TAB 0 Refills Prov:Chetan Cuellar MD 08/12/16 Metformin (Metformin) 1,000 Mg Tab, 1000 MG PO BID for Blood Sugar Management for 30 Days, TAB 0 Refills With meals Prov:Chetan Cuellar MD 08/12/16 Enalapril (Enalapril) 20 Mg Tab, 20 MG PO DAILY for Blood Pressure Management for 30 Days, TAB 0 Refills Prov:Chetan Cuellar MD 08/12/16 Reported Medications Lorazepam (Ativan) 1 Mg Tab, 1 MG PO Q6H Y for ANXIETY, #10 TAB 0 Refills 11/22/17 Diphenhydramine (Diphenhydramine) 25 Mg Cap, 25 MG PO DAILY Y for ALLERGIES, CAP 0 Refills 11/22/17 Clonidine (Clonidine) 0.1 Mg Tab, 0.1 MG PO BID Y for HTN, #60 TAB 0 Refills 11/22/17 Ibuprofen (Ibuprofen) 600 Mg Tab, 600 MG PO Q8H Y for PAIN, TAB 0 Refills 11/22/17 Hydroxyzine Pamoate (Hydroxyzine Pamoate) 50 Mg Cap, 50 MG PO Q6HR Y for ANXIETY , CAP 0 Refills 11/22/17 Acetaminophen ER 8 HR (Arthritis Pain Reliever ER 8 HR) 650 Mg Tab, 650 MG PO Q4HR Y for PAIN, TAB 0 Refills 11/22/17 Hydrocodone/Acetaminophen (Hydrocodone-Acetamin 7.5-325) 7.5 Mg-325 Mg Tablet, 1 TAB PO Q4HR Y for PAIN 11/22/17 Tetrahydrozoline Opth Drops (Tetrahydrozoline Opth Drops) 0.05 % Soln, 1 DROP EACH EYE TID for 14 Days, #1 BOTTLE 0 Refills 11/22/17 Ciprofloxacin-Dexamethasone Otic Drops (Ciprodex Otic Drops) 0.3-0.1% Susp, 3 DROP LEFT EAR BID for Infection, #1 BOTTLE 0 Refills 11/22/17 Trazodone (Trazodone) 100 Mg Tablet, 200 MG PO HS for Control Depression, #30 TAB 0 Refills 11/22/17 [place] Carbonate (F[place] Carbonate) 150 Mg Cap, 450 MG PO HS, CAP 0 Refills Take 1 capsule (150mg) with 300mg capsule for a total dose of 450mg 11/22/17 [place] Carbonate ([place] Carbonate) 300 Mg Cap, 450 MG PO HS, CAP 0 Refills Take 1 capsule with 150mg capsule for a total dose of 450mg 11/22/17 Benztropine (Benztropine) 0.5 Mg Tab, 0.5 MG PO Q12HR, #60 TAB 0 Refills 11/22/17 Atorvastatin (Lipitor) 20 Mg Tab, 20 MG PO HS for Cholesterol Management, #30 TAB 0 Refills 11/22/17 Gabapentin (Gabapentin) 300 Mg Cap, 300 MG PO DAILY, #30 CAP 0 Refills 11/22/17 Petrolatum,White (Vaseline White Petroleum) 5 Gm Oint.pack, 1 APPLIC TOPICAL BID Apply to bottom of feet then put on socks 11/22/17 Triamcinolone Topical (Triamcinolone Topical) 0.1% Cream, 1 APPLIC TOPICAL TID for Inflammation, GM 0 Refills 11/22/17 Insulin Degludec Inj (Tresiba Flextouch Pen Inj) 300 unit/3 ML Pen, 30 UNITS SQ DAILY for Blood Sugar Management, #15 ML 0 Refills 11/22/17 Melatonin (Melatonin) 10 Mg Tablet, 10 MG PO HS 11/22/17 Discontinued Scripts Levocarnitine Liq (Carnitor Liq) 1 Gm/10 Ml Soln, 3 ML PO TID for Hyperammonemia for 30 Days, ML 0 Refills Prov:Chetan Cuellar MD 08/12/16 Divalproex (Depakoradha SAGASTUME) 500 Mg Tabdr, 1500 MG PO HS for Bipolar disorder for 30 Days, TAB 0 Refills Prov:Chetan Cuellar MD 08/12/16 Insulin Aspart Inj (Novolog Inj) 100 Unit/Ml Inj, 1 INJECTION SQ DIRECTED for Diabetes for 30 Days, INJECTION Three times daily SQ sliding scale before meals. no need to HS dosing. Prov:Ananda Luna MD 06/12/16 Current Medications Medications (Trade) Dose Ordered Sig/[place] Route Start Time Stop Time Status Last Admin (NS Flush) 2 ml UNSCH PRN IV FLUSH 11/22/17 22:00 (NS Flush) 2 ml BID IV FLUSH 11/23/17 09:00 11/23/17 11:50 (Lipitor) 20 mg HS PO 11/23/17 21:00 11/23/17 21:58 (Protonix) 20 mg DAILY PO 11/23/17 09:00 11/24/17 10:07 (Aristocort 0.1% Cream) 1 applic TID TOPICAL 11/23/17 09:00 (Tylenol) 650 mg Q4H PRN PO 11/23/17 01:45 Patient Own Medication Ciprofloxacin-Dexamethasone OTIC ... BID LEFT EAR 11/23/17 09:00 Future Hold (Vaseline Oint) 1 applic BID TOPICAL 11/23/17 09:00 (Clear Eyes Redness Relief 0.012% Opth Soln) 1 drop TID EACH EYE 11/23/17 09:00 11/24/17 10:10 (D50w (Vial) Inj) 50 ml UNSCH PRN IV PUSH 11/23/17 01:30 (Glucagon Inj) 1 mg UNSCH PRN OTHER 11/23/17 01:30 (NovoLOG SUPPLEMENTAL SCALE) 1 ACHS SLIDING SCALE SQ 11/23/17 08:00 11/24/17 10:10 (Aspirin Chew) 81 mg DAILY PO 11/23/17 09:00 11/24/17 10:08 (Lexapro) 20 mg DAILY PO 11/23/17 09:00 6/6/18 10:07 (Lithotabs) 450 mg HS PO 11/23/17 21:00 11/23/17 21:58 (Pill Splitter) 1 ea UNSCH PRN OTHER 11/23/17 03:00 (Catapres) 0.1 mg Q6H PRN PO 11/23/17 02:45 (Duoneb Neb) 1 ampule Q6HR NEB PRN NEB 11/23/17 02:45 (Zofran Odt) 4 mg Q6H PRN PO 11/23/17 03:00 Sodium Chloride 1,000 ml @ 100 mls/hr Q10H IV 11/23/17 03:45 11/24/17 10:09 (Glucophage) 1,000 mg BID PO 11/23/17 21:00 11/24/17 10:08 Patient Own Medication (Insulin Degludec ... DAILY SQ 11/24/17 09:00 Future Hold Family Psych History No family psychiatric he Social History Patient was born and raised in [place], he lives in [facility] in [place], his single, unemployed, supported by [facility], his highest level of education is third grade Patient's Strengths (min. 2) Outpatient psychiatric care Physical Exam No tremors, no EPS, no psychomotor agitation retardation, no catatonic symptoms , no withdrawal seen Vital Signs Vital Signs Date Time Temp Pulse Resp B/P (MAP) Pulse Ox O2 Delivery O2 Flow Rate FiO2 11/24/17 12:00 96.7 70 20 163/79 (107) 96 11/24/17 07:15 21 11/22/17 19:35 Room Air I/O 11/24/17 11/24/17 11/25/17 08:00 16:00 00:00 Intake Total 1800 ml Output Total 1000 ml Balance 800 ml Lab Results Test 11/23/17 22:50 11/24/17 06:28 Total Creatine Kinase 170 U/L Creatine Kinase MB 1.4 NG/ML Troponin I LESS THAN 0.02 NG/ML White Blood Count 13.3 TH/MM3 Red Blood Count 4.79 MIL/MM3 Hemoglobin 12.5 GM/DL Hematocrit 38.5 % Mean Corpuscular Volume 80.4 FL Mean Corpuscular Hemoglobin 26.1 PG Mean Corpuscular Hemoglobin Concent 32.5 % Red Cell Distribution Width 14.8 % Platelet Count 227 TH/MM3 Mean Platelet Volume 9.2 FL Neutrophils (%) (Auto) 63.4 % Lymphocytes (%) (Auto) 26.1 % Monocytes (%) (Auto) 7.0 % Eosinophils (%) (Auto) 2.9 % Basophils (%) (Auto) 0.6 % Neutrophils # (Auto) 8.4 TH/MM3 Lymphocytes # (Auto) 3.5 TH/MM3 Monocytes # (Auto) 0.9 TH/MM3 Eosinophils # (Auto) 0.4 TH/MM3 Basophils # (Auto) 0.1 TH/MM3 CBC Comment DIFF FINAL Differential Comment Blood Urea Nitrogen 19 MG/DL Creatinine 1.05 MG/DL Random Glucose 233 MG/DL Calcium Level 9.4 MG/DL Sodium Level 137 MEQ/L Potassium Level 4.4 MEQ/L Chloride Level 104 MEQ/L Carbon Dioxide Level 22.7 MEQ/L Anion Gap 10 MEQ/L Estimat Glomerular Filtration Rate 73 ML/MIN Triglycerides Level 144 MG/DL Cholesterol Level 148 MG/DL LDL Cholesterol 79 MG/DL HDL Cholesterol 40.0 MG/DL Cholesterol/HDL Ratio 3.70 RATIO Mental Status Examination Appearance: Appropriate Consciousness: Alert Orientation: x4 Motor Activity: Normal gait Speech: Other (Mute) Language: Adequate Fund of Knowledge: Adequate Attention and Concentration: Adequate Memory: Unremarkable Mood: Appropriate Affect: Appropriate Thought Process & Associations: Intact Thought Content: Appropriate Hallucination Type: None Delusion Type: None Suicidal Ideation: No Suicidal Plan: No Suicidal Intention: No Homicidal Ideation: No Homicidal Plan: No Homicidal Intention: No Insight: Fair Judgment: Impulsive Assessment & Plan Problem List: (1) Schizoaffective disorder ICD Codes: F25.9 - Schizoaffective disorder, unspecified Status: Acute Assessment & Plan: On psychiatric evaluation I find a patient that is calm, cooperative, pleasant. Communication is effective through writing given that the patient is deaf. The patient is fully oriented 3, logical, coherent and relevant. He was able even to recognize me from our previous encounter about a year ago. At the moment of my evaluation there is no any active or significant neuropsychiatric symptoms that require an immediate psychiatric intervention. The patient has been at baseline, as per communication with sister and outpatient psychiatrist, until last Wednesday. He decompensated mentally this weekend. He accidentally missed 1 dose of lithium and that is the reason his level is subtherapeutic, this fact was confirmed with a left. Regarding his reported altered mental state could be definitely related with the amount of psychotropics that the patient is taking. there is no clinical value or benefit of taking 3 anticholinergic medications at the same time. Anticholinergic medications are well known by worsening condition: He is on Benadryl 25 mg 3 times daily, hydroxyzine 50 mg 3 times daily, benztropine 0.5 mg. My recommendation is that the patient continue his Haldol 5 mg twice daily , his lithium 450 milligrams at bedtime, and benztropine 0.5 mg twice daily for EPS prophylaxis. Hydroxyzine and Benadryl can be discontinued. At the same time that trazodone can be reduce to 100 mg hs for mood and insomnia. He does not meet criteria for involuntary psychiatric admission. He will continue psychiatric care with outpatient visiting psychiatrist in long-term. Recommend a psychotropic regimen as follow: Discontinue Benadryl 25 and hydroxyzine 50 mg to avoid anticholinergic cognitive impairment Haldol 5 mg twice daily for psychosis and behavioral, lithium 450 milligrams at bedtime for mood stabilization and manic symptoms benztropine 0.5 mg twice daily for EPS prophylaxis and anxiety Review trazodone to 100 mg at bedtime for mood and to help with Consult appreciated. Assessment & Plan Estimated LOS: Corby Garibay MD Nov 24, 2017 13:21
[2017-11-24] MEDS ORDERED: TRAZ100T10 PO (15:16)
--- NOTE | 2017-11-24 18:17 | HHI.FPPN ---
Subjective Remarks Patient seen and examined this morning. No acute events overnight per nursing staff. Patient interviewed via writing as interpretive services not available at this time. Per report, patient's sister is unable to come to the bedside today as she is required to work. However, she did give report to the nursing staff that she feels her brother is "completely back to normal." The patient states that he feels "fine" and has no current complaints. He states that he has been eating well and using the bathroom regularly. He denies any fevers, chest pain, shortness of breath, NVD, or body pain. He does answer "yes" when asked if he is ready to return back to his halfway facility. (Abrahan Marcelino MD R2) Objective Vitals Vital Signs Date Time Temp Pulse Resp B/P (MAP) Pulse Ox O2 Delivery O2 Flow Rate FiO2 11/24/17 12:00 96.7 70 20 163/79 (107) 96 11/24/17 11:54 77 11/24/17 08:14 98.0 69 18 165/76 (105) 92 145/87 (106) 148/72 (97) 11/24/17 07:15 96 21 11/24/17 04:26 98.7 67 16 124/73 (90) 93 11/24/17 04:00 69 11/24/17 00:00 61 11/23/17 23:54 98.6 75 16 129/77 (94) 94 11/23/17 20:45 98.5 80 16 130/73 (92) 94 11/23/17 20:00 71 11/23/17 19:32 95 21 I/O 11/23/17 11/23/17 11/23/17 11/24/17 11/24/17 11/24/17 07:00 15:00 23:00 07:00 15:00 23:00 Intake Total 1500 ml 940 ml 1800 ml Output Total 4200 ml 400 ml 1000 ml Balance -2700 ml 540 ml 800 ml Intake Oral 1500 ml 940 ml 1800 ml Output Urine Total 4200 ml 400 ml 1000 ml # Voids 2 (Abrahan Marcelino MD R2) Result Diagram: 11/24/1762711/24/17627 Objective Remarks GENERAL: Well-nourished, well-developed male lying in bed in no acute distress. SKIN: Warm and dry. No rash. HEENT: Atraumatic, normocephalic with extraocular motions intact. No rhinorrhea. No visible lymphadenopathy or jugulovenous distension appreciated. CARDIOVASCULAR: Regular rate and rhythm without obvious murmurs, gallops, or rubs. 2+ pulses in all four extremities. RESPIRATORY: Clear to auscultation bilaterally with no crackles, wheezes, or rhonchi. No increased work of breathing. GASTROINTESTINAL: Abdomen soft, non-tender, nondistended with positive bowel sounds. No masses appreciated. MUSCULOSKELETAL: No cyanosis or edema. No calf tenderness. NEURO/PSYCH: Patient is deaf, but does communicate via sign language with sister. Patient completes interview today using pen and paper with appropriate answers to questioning. Otherwise afocal. (Abrahan Marcelino MD R2) A/P Assessment and Plan Mr. Small is a 57-year-old deaf male presenting to the ED with altered mental status. Discharge Planning Today pending halfway facility acceptance (Abrahan Marcelino MD R2) Attending Attestation Patient examined independently and case discussed with resident physicians I have read the above note and agree with the assessment/plan as discussed with me I was involved in all medical decision making for this patient Garth Mays MD (Garth Mays MD) Problem List: (1) Altered mental status ICD Codes: R41.82 - Altered mental status, unspecified Status: Acute Plan: Imaging: Brain MRI - Slight convex deformity of the superolateral wall of the left lateral ventricle with some adjacent periventricular white matter T2 prolongation. This appearance may reflect remote parenchymal injury of some sort. Brain is elsewhere symmetric and unremarkable. There is no evidence of mass or hemorrhage. There is nothing to suggest acute infarction. CT head - No acute intracranial abnormality Carotid ultrasound - less than 50% stenosis bilaterally Lab work: CBC significant for leukocytosis of 13.6 but no evidence of infection Troponin less than 0.02 Vitamin B12 290 within normal limits RPR nonreactive TSH 0.697 within normal limits Hemoglobin A1c pending Urine tox screen positive for barbiturates, otherwise negative [place] level 0.4 (low) Ethyl alcohol less than 3 Beta hydroxybutyrate 0.16 within normal limits Urinalysis positive for glucose level of 300, otherwise negative Psychiatry has been consulted to evaluate patient's psychiatric medication list for appropriateness, recommendations below. Patient is not in control of his medications at his [facility] and sister is concerned that he is not getting his medications as prescribed or that they may be causing him to be altered Medications: -Continue Haldol 5 mg twice daily, lithium 450 mg nightly, benztropine 0.5 mg twice daily, decrease trazodone to 100 mg at bedtime, continue as needed Ativan , continue Lexapro -Discontinue Benadryl and hydroxyzine to avoid anticholinergic cognitive impairment (2) Chest pain ICD Codes: R07.9 - Chest pain, unspecified Status: Resolved Plan: Chest pain has resolved Troponins and EKGs trended 3 are all negative Medications: -Daily aspirin ordered (3) DM (diabetes mellitus) ICD Codes: E11.9 - Type 2 diabetes mellitus without complications Status: Chronic Plan: Blood glucose has remained elevated and patient required 5 units of regular insulin today. Patient to follow-up with PCP as outpatient Hemoglobin A1c 10.0 Lipid panel: Triglycerides 144, cholesterol 148, LDL 79, HDL 40 Beta hydroxybutyrate within normal limits at 0.16 Restart home Tresiba insulin and metformin Continue cover with sliding scale (4) Schizoaffective disorder, bipolar type ICD Codes: F25.0 - Schizoaffective disorder, bipolar type Status: Acute Plan: Patient does not appear manic at this time -[place] level low at 0.4 -Urine drug screen positive only for barbiturates Medications: Please see plan as above (5) Creatinine elevation ICD Codes: R79.89 - Other specified abnormal findings of blood chemistry Status: Resolved Plan: Per chart review, baseline approximately 1.2 over approximately last year CMP: Creatinine 1.36 on arrival, improved to 1.05 Medications: -1L NS bolus given in ED -NS at 100 ml/hr (6) HTN (hypertension) ICD Codes: I10 - Essential (primary) hypertension Status: Chronic Plan: Medications: -Hold home clonidine, amlodipine, enalapril as patient's blood pressure is normotensive -Clonidine 0.1 mg every 6 hours as needed for blood pressure greater than 180/ 100 (7) Nutrition, metabolism, and development symptoms ICD Codes: R63.8 - Other symptoms and signs concerning food and fluid intake Status: Acute Plan: -Diet: Patient tolerating diabetic diet per report -Fluids: Patient appears well-hydrated, deferred at this time -Electrolytes: Within normal limits, continue to monitor -Prophylaxis: Zofran as needed for nausea/vomiting, clonidine as needed for BP greater than 180/110, DuoNeb as needed for shortness of breath, Tylenol as needed for pain (8) DVT prophylaxis Status: Acute Plan: -Early ambulation, PT ordered -SCDs (Abrahan Marcelino MD R2) Problem Qualifiers (1) Altered mental status: Qualified Codes: R41.0 - Disorientation, unspecified (2) Chest pain: Qualified Codes: R07.1 - Chest pain on breathing (3) DM (diabetes mellitus): Qualified Codes: E11.8 - Type 2 diabetes mellitus with unspecified complications; 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
--- NOTE | 2017-11-25 10:07 | HHI.DS ---
Discharge Summary Admission Date Nov 22, 2017 at 20:18 Discharge Date: Nov 24, 2017 Admitting Diagnosis Confusion CBC/BMP: 11/24/17 0628 11/24/17 0628 Significant Findings Laboratory Tests Test 11/22/17 14:30 11/22/17 14:40 11/22/17 20:42 11/22/17 22:55 Urine Glucose (UA) 300 mg/dL (NEG) White Blood Count 14.5 TH/MM3 (4.0-11.0) Hemoglobin 12.7 GM/DL (13.0-17.0) Mean Corpuscular Volume 79.9 FL (80.0-100.0) Mean Corpuscular Hemoglobin 26.0 PG (27.0-34.0) Neutrophils # (Auto) 10.1 TH/MM3 (1.8-7.7) Monocytes # (Auto) 1.1 TH/MM3 (0-0.9) Creatinine 1.36 MG/DL (0.60-1.30) Random Glucose 291 MG/DL (74-106) Total Protein 8.4 GM/DL (6.4-8.2) Alkaline Phosphatase 179 U/L (45-117) Sodium Level 131 MEQ/L (136-145) Carbon Dioxide Level 18.6 MEQ/L (21.0-32.0) Estimat Glomerular Filtration Rate 54 ML/MIN (>89) [place] Level 0.4 MEQ/L (0.5-1.5) Urine Barbiturates Screen POS (NEG) Test 11/22/17 23:04 11/22/17 23:09 11/23/17 03:30 11/23/17 06:05 Ammonia 34 MCMOL/L (11-32) Troponin I LESS THAN 0.02 NG/ML LESS THAN 0.02 NG/ML Blood Urea Nitrogen 20 MG/DL (7-18) Random Glucose 259 MG/DL (74-106) Alkaline Phosphatase 159 U/L (45-117) Sodium Level 135 MEQ/L (136-145) Estimat Glomerular Filtration Rate 61 ML/MIN (>89) White Blood Count 13.6 TH/MM3 (4.0-11.0) Hemoglobin 12.7 GM/DL (13.0-17.0) Hematocrit 38.4 % (39.0-51.0) Mean Corpuscular Volume 79.9 FL (80.0-100.0) Mean Corpuscular Hemoglobin 26.5 PG (27.0-34.0) Monocytes (%) (Auto) 8.4 % (0.0-8.0) Neutrophils # (Auto) 8.4 TH/MM3 (1.8-7.7) Monocytes # (Auto) 1.1 TH/MM3 (0-0.9) Hemoglobin A1c 10.0 % (4.3-6.0) Test 11/23/17 22:50 11/24/17 06:28 Troponin I LESS THAN 0.02 NG/ML White Blood Count 13.3 TH/MM3 (4.0-11.0) Hemoglobin 12.5 GM/DL (13.0-17.0) Hematocrit 38.5 % (39.0-51.0) Mean Corpuscular Hemoglobin 26.1 PG (27.0-34.0) Neutrophils # (Auto) 8.4 TH/MM3 (1.8-7.7) Blood Urea Nitrogen 19 MG/DL (7-18) Random Glucose 233 MG/DL (74-106) Estimat Glomerular Filtration Rate 73 ML/MIN (>89) Imaging Last 72 hours Impressions Carotid Artery Ultrasound 11/23/17 0000 Signed Impressions: CONCLUSION: 1. Right Internal Carotid Artery: Findings indicate <50% stenosis. 2. Left Internal Carotid Artery: Findings indicate <50% stenosis. Brain MRI 11/23/17 0000 Signed Impressions: CONCLUSION: No acute intracranial findings Pt Condition on Discharge: Stable Discharge Disposition: ACLF/RESIDENTIAL Discharge Instructions DIET: Follow Instructions for: Diabetic Diet Activities you can perform: Regular-No Restrictions Abrahan Marcelino MD R2 Nov 25, 2017 10:07
== END 2017-11-24 16:56 ==
LOC: NEPD 12:50 → NEDA 20:18 → NEPGCP 22:05
PROVIDERS: ADMIT Family Medicine; ATTEND Family Medicine
DX: R41.82 Altered mental status, unspecified (principal); R07.1 Chest pain on breathing; F25.0 Schizoaffective disorder, bipolar type; E11.8 Type 2 diabetes mellitus with unspecified complications; R94.31 Abnormal electrocardiogram [ECG] [EKG]; I65.23 Occlusion and stenosis of bilateral carotid arteries; D72.829 Elevated white blood cell count, unspecified; M25.512 Pain in left shoulder; G89.29 Other chronic pain; I10 Essential (primary) hypertension; G47.00 Insomnia, unspecified; E78.00 Pure hypercholesterolemia, unspecified; K21.9 Gastro-esophageal reflux disease without esophagitis; Z79.4 Long term (current) use of insulin; Z86.73 Personal history of transient ischemic attack (TIA), and cerebral infarction without residual deficits; Z88.0 Allergy status to penicillin; Z80.1 Family history of malignant neoplasm of trachea, bronchus and lung; Z82.49 Family history of ischemic heart disease and other diseases of the circulatory system
CPT/HCPCS: 70450; 70551; 71045; 80048; 80053; 80061; 80178; 80307; 81001; 82010; 82140; 82550; 82552; 82607; 82948; 83036; 83605; 83735; 84100; 84425; 84443; 84484; 85025; 86592; 93005; 93880; 94150; 96361; 96372; 96374; 97162; 99285; G0378; G8987; G8988; G8989; J1815; J2060; J7030